=== PATIENT | male | born 1965 | race Caucasian/White ===

== ENCOUNTER 2019-01-19 10:18 | Inpatient (IN) | payer OTHER ==
[2019-01-19 16:03] VITALS: BMI 27.3
--- NOTE | 2019-01-19 17:23 | HP ---
COWS - Scale Resting Pulse: 1= [place] 81-100 Sweatin=Flushed/Facial Moisture Restless Observation: 0= Sits Still Pupil Size: 2= Moderately Dilated Bone or Joint Aches: 2= Severe Diffuse Aches Runny Nose/ Eye Tearin= Runny Nose/Eyes GI Upset > 30mins: 1= Stomach Cramp Tremor Observation: 0= None Yawning Observation: 0= None Anxiety or Irritability: 2=Irritable/Anxious Goose Flesh Skin: 0=Smooth Skin COWS Score: 12 CIWA Score Nausea/Vomitin Muscle Tremors: None Anxiety: 3 Agitation: 0-Normal Activity Paroxysmal Sweats: 3 Orientation: 1-Uncertain about Date Tacttile Disturbances: 3-Moderate Itch/Numb/Burn Auditory Disturbances: 0-None Visual Disturbances: 0-None Headache: 0-None Present CIWA-Ar Total Score: 12 - Admission Criteria OASAS Guidelines: Admission for Medically Managed Detox: Requires at least one of the followin. CIWA greater than 12 2. Seizures within the past 24 hours 3. Delirium tremens within the past 24 hours 4. Hallucinations within the past 24 hours 5. Acute intervention needed for co occurring medical disorder 6. Acute intervention needed for co occurring psychiatric disorder 7. Severe withdrawal that cannot be handled at a lower level of care (continued vomiting, continued diarrhea, abnormal vital signs) requiring intravenous medication and/or fluids 8. Admission ROS [facility] Chief Complaint: ETOH and Heroin withdrawal symptoms Allergies/Adverse Reactions: Allergies Allergy/AdvReac Type Severity Reaction Status Date / Time No Known Allergies Allergy Verified 01/19/19 15:45 History of Present Illness: Patient is new to facility and presents for ETOH and Heroin detox. Patient started sniffing heroin at age 34, denies IVDA and sniffs 6 bags daily. Last use this morning. Patient also started drinking ETOH at age 23 and drinks 2 pints of vodka daily. Last drink this morning. Patient denies hx of seizures, blackouts and overdose. PMH includes HTN, HLD and tobacco use. Patient denies hx of mental illness, SI and HI. Patient was treated with suboxone which was confirmed in [facility]. Last prescription 12/19/18. Patient states medication did not work and he stopped taking medicine. UDS + fentanyl, MOP, MTD, BZO. Others' Prescriptions Patient Name: Brennon Lauren Date: 1965 Address: [address] [place] [address] [address], [place] [address] Sex: Male Rx Written Rx Dispensed Drug Quantity Days Supply Prescriber Name 12/18/2018 12/19/2018 buprenorphine-naloxone 8-2 mg sl film 60 30 Justin Casillas 06/24/2018 06/24/2018 suboxone 8 mg-2 mg sl film 14 7 Garret Dhaliwal F, MD Patient Name: Brennon Lauren Date: 1965 Address: [address] [place], [place] [address], [place] [address] Sex: Male Rx Written Rx Dispensed Drug Quantity Days Supply Prescriber Name 07/05/2018 07/05/2018 suboxone 8 mg-2 mg sl film 5 2 Bolus, Tobin H * - Drugs marked with an asterisk are compound drugs. If the compound drug is made up of more than one controlled substance, then each controlled substance will be a separate row in the table. Exam Limitations: No Limitations - Ebola screening Have you traveled outside of the country in the last 21 days: No (N) Have you had contact with anyone from an Ebola affected area: No Do you have a fever: No - Review of Systems Constitutional: Chills, Changes in sleep EENT: reports: Tearing, Nose Congestion Respiratory: reports: No Symptoms reported Cardiac: reports: No Symptoms Reported GI: reports: Diarrhea, Nausea, Poor Fluid Intake : reports: No Symptoms Reported Musculoskeletal: reports: Back Pain, Joint Pain, Muscle Pain Integumentary: reports: Erythema, Flushing Neuro: reports: Numbness, Tingling Endocrine: reports: Flushing Hematology: reports: No Symptoms Reported Psychiatric: reports: Orientated x3, Anxious Patient History - Patient Medical History Hx Anemia: No Hx Asthma: No Hx Chronic Obstructive Pulmonary Disease (COPD): No Hx Cancer: No Hx Cardiac Disorders: No Hx Congestive Heart Failure: No Hx Hypertension: Yes Hx Hypercholesterolemia: Yes Hx Pacemaker: No HX Cerebrovascular Accident: No Hx Seizures: No Hx Dementia: No Hx Diabetes: No Hx Gastrointestinal Disorders: No Hx Liver Disease: No Hx Genitourinary Disorders: No Hx Sexually Transmitted Disorders: No Hx Renal Disease (ESRD): No Hx Thyroid Disease: No Hx Human Immunodeficiency Virus (HIV): No Hx Hepatitis C: No Hx Depression: No Hx Suicide Attempt: No Hx Bipolar Disorder: No Hx Schizophrenia: No - Patient Surgical History Past Surgical History: No Anesthesia Reaction: No - PPD History Previous Implant?: No Documented Results: Negative w/o proof PPD to be Administered?: Yes - Smoking Cessation Smoking history: Current every day smoker Have you smoked in the past 12 months: Yes Hx Chewing Tobacco Use: No Initiated information on smoking cessation: Yes 'Breaking Loose' booklet given: 01/19/19 - Substance & Tx. History Hx Alcohol Use: Yes Hx Substance Use: Yes Substance Use Type: Alcohol, Heroin Hx Substance Use Treatment: Yes - Substances abused Heroin Substance route: Inhalation Frequency: Daily Amount used: 6 bags a day Age of first use: 37 Date of last use: 01/19/19 Alcohol Substance route: Oral Frequency: Daily Amount used: 2 pints vodka Age of first use: 24 Date of last use: 01/19/19 Family Disease History - Family Disease History Family Disease History: Heart Disease: Father, Mother Admission Physical Exam [facility] - Vital Signs Vital Signs: Vital Signs - 24 hr 01/19/19 15:56 Temperature 97.3 F L Pulse Rate 90 Respiratory 16 Rate Blood Pressure 126/74 - Physical General Appearance: Yes: Nourished, Appropriately Dressed, Anxious HEENTM: Yes: EOMI, Hearing grossly Normal, Normocephalic, Normal Voice, YEIMY, Pharynx Normal, Other (mildly dilated pupils) Respiratory: Yes: Chest Non-Tender, Lungs Clear, Normal Breath Sounds, No Respiratory Distress, No Accessory Muscle Use Neck: Yes: No masses,lesions,Nodules, Supple, Trachea in good position Breast: Yes: Breast Exam Deferred Cardiology: Yes: Regular Rhythm, Regular Rate, S1, S2 Abdominal: Yes: Normal Bowel Sounds, Non Tender, Soft Genitourinary: Yes: Within Normal Limits Back: Yes: Muscle Spasm Musculoskeletal: Yes: Gait Steady, Back pain, Muscle Pain Extremities: Yes: Normal Inspection, Normal Range of Motion, Non-Tender Neurological: Yes: 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 II-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 NML intact, Fully Oriented, Alert, Motor Strength 5/5, Normal Response, Other (anxious) Integumentary: Yes: Warm, Erythema Lymphatic: Yes: Within Normal Limits Cleared for Admission [facility] - Detox or Rehab [facility] Level of Care: Medically Managed Detox Regimen/Protocol: Methadone/Librium Breathalyzer - Breathalyzer Breathalyzer: 0.072 Urine Drug Screen - Test Device Lot number: [id number] Expiration date: 10/05/20 - Control Is test valid?: Yes - Results Drug screen NEGATIVE: No Urine drug screen results: FEN-Fentanyl, MOP-Opiates, MTD-Methadone, BZO- Benzodiazepines Inpatient Rehab Admission - Rehab Decision to Admit Inpatient rehab admission?: No
[2019-01-19] MEDS ORDERED: guaiFENesin 200 MG/10 ML 10 ML UNIT-DOSE CUPS PO PRN (17:30)
[2019-01-19] MEDS ORDERED: hydrOXYzine PAMOATE 25 MG CAPSULE (FP) PO PRN (17:30)
[2019-01-19] MEDS ORDERED: ACETAMINOPHEN 325 MG TABLET (FP) PO PRN (17:30)
[2019-01-19] MEDS ORDERED: MAGNESIUM HYDROX 2400MG/30ML ORAL SUSPENSION 30 ML CUP PO PRN (17:30)
[2019-01-19] MEDS ORDERED: P-EPHED 60MG/TRIPROLIDI 2.5MG TABLET PO PRN (17:30)
[2019-01-19] MEDS ORDERED: MAGNESIUM CITRATE 300 ML BOTTLE PO PRN (17:30)
[2019-01-19] MEDS ORDERED: MAG HYDROX/AL HYDROX/SIMETH 30 ML UNIT-DOSE CUP PO PRN (17:30)
[2019-01-19] MEDS ORDERED: NICOTINE POLACRILEX 2 MG GUM BUC PRN (17:30)
[2019-01-19] MEDS ORDERED: BISMUTH SUBSALICYLATE 524 MG/30 ML UD PO PRN (17:30)
[2019-01-19] MEDS ORDERED: MENTHOL/PHENOL 1 EACH UD MM PRN (17:30)
[2019-01-19] MEDS ORDERED: chlordiazePOXIDE HCL 25 MG CAPSULE PO PRN (17:33)
[2019-01-19] MEDS ORDERED: cloNIDine HCL 0.1 MG TABLET PO PRN (17:33)
[2019-01-19] MEDS ORDERED: METHADONE HCL 10 MG TABLET (FOR DETOX USE ONLY) PO ONE ×2 (19:00→23:00)
[2019-01-19] MEDS: THIAMINE HCL 100 MG TABLET (FP) PO SCH (22:49)
[2019-01-19] MEDS: chlordiazePOXIDE HCL 25 MG CAPSULE PO SCH (22:49)
[2019-01-19] MEDS: ATORVASTATIN CA 10 MG TABLET (FP) PO SCH (22:49)
[2019-01-20] MEDS: chlordiazePOXIDE HCL 25 MG CAPSULE PO SCH ×4 (05:14→22:34)
[2019-01-20] MEDS ORDERED: METHADONE HCL 10 MG TABLET (FOR DETOX USE ONLY) PO ONE (10:00)
[2019-01-20] MEDS: ASPIRIN 81 MG CHEWABLE TABLETS PO SCH (10:27)
[2019-01-20] MEDS: PRENATAL VITAMINS W/ FOLIC ACID TABLET (FP) PO SCH (10:27)
[2019-01-20] MEDS: LOSARTAN POTASSIUM 25 MG TABLET PO SCH (10:27)
[2019-01-20] MEDS: NICOTINE 7 MG/24 HOURS TOPICAL PATCH TD SCH (10:28)
[2019-01-20 10:42] LABS: ALBUMIN 3.2 g/dl (3.4-5.0); BILIRUBIN,TOTAL 0.4 mg/dL (0.2-1); BLOOD UREA NITROGEN 17.4 mg/dL (7-18); CALCIUM 8.1 mg/dL (8.5-10.1); CREATININE 0.9 mg/dL (0.55-1.3); POTASSIUM 4.9 mmol/L (3.5-5.1); TOT PROT 6.2 g/dl (6.4-8.2)
[2019-01-20 11:16] LABS: URINE APPEARANCE CLEAR; URINE BILIRUBIN NEGATIVE (NEGATIVE); URINE COLOR YELLOW; URINE GLUCOSE (UA) NEGATIVE (NEGATIVE); URINE KETONE NEGATIVE (NEGATIVE); URINE LEUK ESTERASE NEGATIVE (NEGATIVE); URINE NITRITE NEGATIVE (NEGATIVE); URINE PROTEIN NEGATIVE (NEGATIVE); URINE UROBILINOGEN 0.2 mg/dL (0.2-1.0)
[2019-01-20 11:18] LABS: HEMATOCRIT 39.3 % (35.4-49); HEMOGLOBIN 13.5 GM/dL (11.7-16.9); MCH 31.5 pg (25.7-33.7); MCHC 34.4 g/dl (32.0-35.9); MEAN CELL VOLUME 91.4 fl (80-96); MEAN PLT VOLUME 7.9 fl (7.5-11.1); RDW 13.9 % (11.9-15.9); WHITE BLOOD COUNT 4.9 K/mm3 (4.0-10.0)
[2019-01-20 11:37] LABS: PLATELET COUNT 305 K/MM3 (134-434)
--- NOTE | 2019-01-20 15:36 | PN ---
[facility] CIWA - CIWA Score Nausea/Vomitin-Mild Nausea/No Vomiting Muscle Tremors: 3 Anxiety: 2 Agitation: 2 Paroxysmal Sweats: 3 Orientation: 0-Oriented Tacttile Disturbances: 0-None Auditory Disturbances: 0-None Visual Disturbances: 0-None Headache: 0-None Present CIWA-Ar Total Score: 11 S COWS - Scale Resting Pulse: 0= [place] 80 or Below Sweatin=Flushed/Facial Moisture Restless Observation: 1= Difficult to Sit Still Pupil Size: 0= Normal to Room Light Bone or Joint Aches: 1= Mild Discomfort Runny Nose/ Eye Tearin= Nasal Congestion GI Upset > 30mins: 1= Stomach Cramp Tremor Observation of Outstretched Hands: 2= Slight Tremor Visible Yawning Observation: 0= None Anxiety or Irritability: 1=Feels Anxious/Irritable Goose Flesh Skin: 0=Smooth Skin COWS Score: 9 S Progress Note (SOAP) Subjective: R leg pain sweats Objective: 01/20/19 15:33 A & Ox 3 Seen ambulating steadily on unit No acute distress Vital Signs Temperature 98.4 F 01/20/19 15:05 Pulse Rate 75 01/20/19 15:05 Respiratory Rate 18 01/20/19 15:05 Blood Pressure 123/72 01/20/19 15:05 O2 Sat by Pulse Oximetry (%) Laboratory Last Values WBC 4.9 K/mm3 (4.0-10.0) 01/20/19 07:40 RBC 4.30 M/mm3 (4.00-5.60) 01/20/19 07:40 Hgb 13.5 GM/dL (11.7-16.9) 01/20/19 07:40 Hct 39.3 % (35.4-49) 01/20/19 07:40 MCV 91.4 fl (80-96) 01/20/19 07:40 MCH 31.5 pg (25.7-33.7) 01/20/19 07:40 MCHC 34.4 g/dl (32.0-35.9) 01/20/19 07:40 RDW 13.9 % (11.9-15.9) 01/20/19 07:40 Plt Count 305 K/MM3 (134-434) 01/20/19 07:40 MPV 7.9 fl (7.5-11.1) 01/20/19 07:40 Sodium 139 mmol/L (136-145) 01/20/19 07:40 Potassium 4.9 mmol/L (3.5-5.1) 01/20/19 07:40 Chloride 108 mmol/L (98-107) H 01/20/19 07:40 Carbon Dioxide 29 mmol/L (21-32) 01/20/19 07:40 Anion Gap 2 MMOL/L (8-16) L 01/20/19 07:40 BUN 17.4 mg/dL (7-18) 01/20/19 07:40 Creatinine 0.9 mg/dL (0.55-1.3) 01/20/19 07:40 Est GFR (CKD-EPI)AfAm 114.21 01/20/19 07:40 Est GFR (CKD-EPI)NonAf 98.54 01/20/19 07:40 Random Glucose 85 mg/dL (74-106) 01/20/19 07:40 Calcium 8.1 mg/dL (8.5-10.1) L 01/20/19 07:40 Total Bilirubin 0.4 mg/dL (0.2-1) 01/20/19 07:40 AST 20 U/L (15-37) 01/20/19 07:40 ALT 24 U/L (13-61) 01/20/19 07:40 Alkaline Phosphatase 94 U/L (45-117) 01/20/19 07:40 Total Protein 6.2 g/dl (6.4-8.2) L 01/20/19 07:40 Albumin 3.2 g/dl (3.4-5.0) L 01/20/19 07:40 Urine Color Yellow 01/20/19 09:00 Urine Appearance Clear 01/20/19 09:00 Urine pH 5.0 (5.0-8.0) 01/20/19 09:00 Ur Specific [place] 1.012 (1.010-1.035) 01/20/19 09:00 Urine Protein Negative (NEGATIVE) 01/20/19 09:00 Urine Glucose (UA) Negative (NEGATIVE) 01/20/19 09:00 Urine Ketones Negative (NEGATIVE) 01/20/19 09:00 Urine Blood Negative (NEGATIVE) 01/20/19 09:00 Urine Nitrite Negative (NEGATIVE) 01/20/19 09:00 Urine Bilirubin Negative (NEGATIVE) 01/20/19 09:00 Urine Urobilinogen 0.2 mg/dL (0.2-1.0) 01/20/19 09:00 Ur Leukocyte Esterase Negative (NEGATIVE) 01/20/19 09:00 RPR Titer Nonreactive (NONREACTIVE) 01/20/19 07:40 Assessment: 01/20/19 15:36 withdrawal sx Plan: continue detox
[2019-01-20] MEDS: IBUPROFEN 400 MG TABLET (FP) PO PRN ×2 (17:00→22:37)
[2019-01-20] MEDS: ATORVASTATIN CA 10 MG TABLET (FP) PO SCH (22:34)
[2019-01-20] MEDS: THIAMINE HCL 100 MG TABLET (FP) PO SCH (23:36)
[2019-01-21] MEDS: chlordiazePOXIDE HCL 25 MG CAPSULE PO SCH ×3 (05:58→18:00)
[2019-01-21] MEDS ORDERED: METHADONE HCL 10 MG TABLET (FOR DETOX USE ONLY) PO ONE (10:00)
[2019-01-21] MEDS: PRENATAL VITAMINS W/ FOLIC ACID TABLET (FP) PO SCH (10:25)
[2019-01-21] MEDS: ASPIRIN 81 MG CHEWABLE TABLETS PO SCH (10:25)
[2019-01-21] MEDS: LOSARTAN POTASSIUM 25 MG TABLET PO SCH (10:27)
[2019-01-21] MEDS: NICOTINE 7 MG/24 HOURS TOPICAL PATCH TD SCH (10:28)
--- NOTE | 2019-01-21 14:51 | PN ---
[facility] CIWA - CIWA Score Nausea/Vomitin-No Nausea/No Vomiting Muscle Tremors: 3 Anxiety: 2 Agitation: 3 Paroxysmal Sweats: 2 Orientation: 0-Oriented Tacttile Disturbances: 0-None Auditory Disturbances: 0-None Visual Disturbances: 0-None Headache: 0-None Present CIWA-Ar Total Score: 10 BHS COWS - Scale Resting Pulse: 0= [place] 80 or Below Sweatin=Flushed/Facial Moisture Restless Observation: 1= Difficult to Sit Still Pupil Size: 0= Normal to Room Light Bone or Joint Aches: 1= Mild Discomfort Runny Nose/ Eye Tearin= Nasal Congestion GI Upset > 30mins: 0= None Tremor Observation of Outstretched Hands: 1= Tremor [place], Not Seen Yawning Observation: 1= 1-2x During Session Anxiety or Irritability: 2=Irritable/Anxious Goose Flesh Skin: 0=Smooth Skin COWS Score: 9 BHS Progress Note (SOAP) Subjective: sweats shakes interrupted sleep body aches Objective: 01/21/19 14:50 Vital Signs Temperature 98.2 F 01/21/19 14:17 Pulse Rate 60 01/21/19 14:17 Respiratory Rate 20 01/21/19 14:17 Blood Pressure 131/72 01/21/19 14:17 O2 Sat by Pulse Oximetry (%) Laboratory Tests 01/20/19 01/20/19 01/20/19 07:40 07:40 07:40 WBC 4.9 RBC 4.30 Hgb 13.5 Hct 39.3 MCV 91.4 MCH 31.5 MCHC 34.4 RDW 13.9 Plt Count 305 MPV 7.9 Sodium 139 Potassium 4.9 Chloride 108 H Carbon Dioxide 29 Anion Gap 2 L BUN 17.4 Creatinine 0.9 Est GFR (CKD-EPI)AfAm 114.21 Est GFR (CKD-EPI)NonAf 98.54 Random Glucose 85 Calcium 8.1 L Total Bilirubin 0.4 AST 20 ALT 24 Alkaline Phosphatase 94 Total Protein 6.2 L Albumin 3.2 L Urine Color Urine Appearance Urine pH Ur Specific [place] Urine Protein Urine Glucose (UA) Urine Ketones Urine Blood Urine Nitrite Urine Bilirubin Urine Urobilinogen Ur Leukocyte Esterase RPR Titer Nonreactive 01/20/19 09:00 WBC RBC Hgb Hct MCV MCH MCHC RDW Plt Count MPV Sodium Potassium Chloride Carbon Dioxide Anion Gap BUN Creatinine Est GFR (CKD-EPI)AfAm Est GFR (CKD-EPI)NonAf Random Glucose Calcium Total Bilirubin AST ALT Alkaline Phosphatase Total Protein Albumin Urine Color Yellow Urine Appearance Clear Urine pH 5.0 Ur Specific [place] 1.012 Urine Protein Negative Urine Glucose (UA) Negative Urine Ketones Negative Urine Blood Negative Urine Nitrite Negative Urine Bilirubin Negative Urine Urobilinogen 0.2 Ur Leukocyte Esterase Negative RPR Titer aaox3 ambulating no acute distress Assessment: 01/21/19 14:50 withdrawal sx Plan: continue detox increase fluids
--- NOTE | 2019-01-21 16:54 | EKG ---
Test Reason : Blood Pressure : / mmHG Vent. Rate : 071 BPM Atrial Rate : 071 BPM P-R Int : 150 ms QRS Dur : 104 ms QT Int : 398 ms P-R-T Axes : -10 047 -37 degrees QTc Int : 432 ms NORMAL SINUS RHYTHM T WAVE ABNORMALITY, CONSIDER LATERAL ISCHEMIA ABNORMAL ECG NO PREVIOUS ECGS AVAILABLE Confirmed by MD MADELEINE, TANNA ([id number]) on 01/21/2019 4:54:29 PM Referred By: Confirmed By:TANNA SALVADOR MD
[2019-01-21] MEDS: ATORVASTATIN CA 10 MG TABLET (FP) PO SCH (22:22)
[2019-01-21] MEDS: MELATONIN 5 MG TABLETS PO PRN (22:22)
[2019-01-21] MEDS: THIAMINE HCL 100 MG TABLET (FP) PO SCH (22:22)
[2019-01-21] MEDS: chlordiazePOXIDE HCL 10 MG CAPSULE PO SCH (22:22)
[2019-01-21] MEDS ORDERED: chlordiazePOXIDE HCL 10 MG CAPSULE PO PRN (23:00)
[2019-01-22] MEDS: chlordiazePOXIDE HCL 10 MG CAPSULE PO SCH ×3 (07:24→17:42)
[2019-01-22] MEDS ORDERED: METHADONE HCL 10 MG TABLET (FOR DETOX USE ONLY) PO ONE (10:00)
[2019-01-22] MEDS: NICOTINE 7 MG/24 HOURS TOPICAL PATCH TD SCH (10:43)
[2019-01-22] MEDS: ASPIRIN 81 MG CHEWABLE TABLETS PO SCH (10:44)
[2019-01-22] MEDS: PRENATAL VITAMINS W/ FOLIC ACID TABLET (FP) PO SCH (10:47)
[2019-01-22] MEDS: LOSARTAN POTASSIUM 25 MG TABLET PO SCH (10:48)
--- NOTE | 2019-01-22 13:24 | PN ---
S CIWA - CIWA Score Nausea/Vomitin-No Nausea/No Vomiting Muscle Tremors: 2 Anxiety: 1-Mildly Anxious Agitation: 1-Slight > Activity Paroxysmal Sweats: 1-Minimal Palms Moist Orientation: 0-Oriented Tacttile Disturbances: 0-None Auditory Disturbances: 0-None Visual Disturbances: 0-None Headache: 0-None Present CIWA-Ar Total Score: 5 BHS COWS - Scale Resting Pulse: 0= [place] 80 or Below Sweatin= Chills/Flushing Restless Observation: 0= Sits Still Pupil Size: 0= Normal to Room Light Bone or Joint Aches: 1= Mild Discomfort Runny Nose/ Eye Tearin= None GI Upset > 30mins: 0= None Tremor Observation of Outstretched Hands: 2= Slight Tremor Visible Yawning Observation: 1= 1-2x During Session Anxiety or Irritability: 1=Feels Anxious/Irritable Goose Flesh Skin: 0=Smooth Skin COWS Score: 6 S Progress Note (SOAP) Subjective: sweats interrupted sleep little anxiety Objective: 01/22/19 13:23 Vital Signs Temperature 98.1 F 01/22/19 13:12 Pulse Rate 60 01/22/19 13:12 Respiratory Rate 18 01/22/19 13:12 Blood Pressure 138/78 01/22/19 13:12 O2 Sat by Pulse Oximetry (%) Laboratory Tests 01/20/19 01/20/19 01/20/19 07:40 07:40 07:40 WBC 4.9 RBC 4.30 Hgb 13.5 Hct 39.3 MCV 91.4 MCH 31.5 MCHC 34.4 RDW 13.9 Plt Count 305 MPV 7.9 Sodium 139 Potassium 4.9 Chloride 108 H Carbon Dioxide 29 Anion Gap 2 L BUN 17.4 Creatinine 0.9 Est GFR (CKD-EPI)AfAm 114.21 Est GFR (CKD-EPI)NonAf 98.54 Random Glucose 85 Calcium 8.1 L Total Bilirubin 0.4 AST 20 ALT 24 Alkaline Phosphatase 94 Total Protein 6.2 L Albumin 3.2 L Urine Color Urine Appearance Urine pH Ur Specific [place] Urine Protein Urine Glucose (UA) Urine Ketones Urine Blood Urine Nitrite Urine Bilirubin Urine Urobilinogen Ur Leukocyte Esterase RPR Titer Nonreactive 01/20/19 09:00 WBC RBC Hgb Hct MCV MCH MCHC RDW Plt Count MPV Sodium Potassium Chloride Carbon Dioxide Anion Gap BUN Creatinine Est GFR (CKD-EPI)AfAm Est GFR (CKD-EPI)NonAf Random Glucose Calcium Total Bilirubin AST ALT Alkaline Phosphatase Total Protein Albumin Urine Color Yellow Urine Appearance Clear Urine pH 5.0 Ur Specific [place] 1.012 Urine Protein Negative Urine Glucose (UA) Negative Urine Ketones Negative Urine Blood Negative Urine Nitrite Negative Urine Bilirubin Negative Urine Urobilinogen 0.2 Ur Leukocyte Esterase Negative RPR Titer labs noted aaox3 ambulating no acute distress Assessment: 01/22/19 13:23 mild withdrawal sx Plan: continue detox increase fluids
[2019-01-22] MEDS: IBUPROFEN 400 MG TABLET (FP) PO PRN (17:45)
[2019-01-22] MEDS: MELATONIN 5 MG TABLETS PO PRN (22:26)
[2019-01-22] MEDS: THIAMINE HCL 100 MG TABLET (FP) PO SCH (22:26)
[2019-01-22] MEDS: ATORVASTATIN CA 10 MG TABLET (FP) PO SCH (22:26)
[2019-01-22] MEDS ORDERED: chlordiazePOXIDE HCL 10 MG CAPSULE PO SCH (23:00)
[2019-01-23] MEDS ORDERED: METHADONE HCL 5 MG TABLET (FOR DETOX USE ONLY) PO ONE (06:00)
[2019-01-23 08:10] VITALS: BP 139/96; PULSE 55; TEMP 96.8
== END 2019-01-23 08:35 | disposition home or self-care (01) | DRG 773 ==
LOC: YASAS 10:18 → Y6N 18:22
PROVIDERS: ADMIT Surgery; ATTEND Surgery
PROC: HZ2ZZZZ Detoxification Services for Substance Abuse Treatment (ICD-10-PCS; principal; 2019-01-19)
DX: F11.23 Opioid dependence with withdrawal (principal); F10.230 Alcohol dependence with withdrawal, uncomplicated; F17.210 Nicotine dependence, cigarettes, uncomplicated; I10 Essential (primary) hypertension; E78.5 Hyperlipidemia, unspecified
CPT/HCPCS: 36415; 80053; 81003; 85027; 86593; 93005; 93010

== ENCOUNTER 2019-05-06 10:47 | Inpatient (IN) | payer OTHER ==
[2019-05-06 12:00] VITALS: BMI 26.7
--- NOTE | 2019-05-06 14:23 | HP ---
COWS - Scale Resting Pulse: 0= [place] 80 or Below Sweatin= Chills/Flushing Restless Observation: 1= Difficult to Sit Still Pupil Size: 1= Pupils >than Normal Bone or Joint Aches: 2= Severe Diffuse Aches Runny Nose/ Eye Tearin= Runny Nose/Eyes GI Upset > 30mins: 2= Nausea/Diarrhea Tremor Observation: 2= Slight Tremor Visible Yawning Observation: 2= >3x During Session Anxiety or Irritability: 2=Irritable/Anxious Goose Flesh Skin: 0=Smooth Skin COWS Score: 15 CIWA Score Nausea/Vomitin Muscle Tremors: 3 Anxiety: 2 Agitation: 2 Paroxysmal Sweats: 1-Minimal Palms Moist Orientation: 0-Oriented Tacttile Disturbances: 1-Very Mild Itch/Numbness Auditory Disturbances: 0-None Visual Disturbances: 0-None Headache: 2-Mild CIWA-Ar Total Score: 13 - Admission Criteria OASAS Guidelines: Admission for Medically Managed Detox: Requires at least one of the followin. CIWA greater than 12 2. Seizures within the past 24 hours 3. Delirium tremens within the past 24 hours 4. Hallucinations within the past 24 hours 5. Acute intervention needed for co occurring medical disorder 6. Acute intervention needed for co occurring psychiatric disorder 7. Severe withdrawal that cannot be handled at a lower level of care (continued vomiting, continued diarrhea, abnormal vital signs) requiring intravenous medication and/or fluids 8. Admission ROS S - HPI Chief Complaint: i need help to stop using heroin and alcohol Allergies/Adverse Reactions: Allergies Allergy/AdvReac Type Severity Reaction Status Date / Time No Known Allergies Allergy Verified 05/06/19 11:52 History of Present Illness: this 54 years old male with heroin and alcohol dependence seeking detox, withdrawal symptom,last detox C 01/09/19 to 01/13/19 but keep relapsing denied seizure no syncope nicotine dependence 3 cigarette/day history of hypertension,hypercholesterolemia no significant period of sobriety unemployed may go to rehab after detox Exam Limitations: No Limitations - Ebola screening Have you traveled outside of the country in the last 21 days: No (N) Have you had contact with anyone from an Ebola affected area: No Do you have a fever: No - Review of Systems Constitutional: Chills, Malaise, Night Sweats, Changes in sleep, Weakness, Unintentional Wgt. Loss EENT: reports: No Symptoms Reported Respiratory: reports: No Symptoms reported Cardiac: reports: No Symptoms Reported GI: reports: Diarrhea, Nausea, Abdominal cramping : reports: No Symptoms Reported Musculoskeletal: reports: Back Pain, Joint Pain, Muscle Pain Integumentary: reports: Dryness Neuro: reports: Headache, Tremors Endocrine: reports: No Symptoms Reported Hematology: reports: No Symptoms Reported Psychiatric: reports: No Sypmtoms Reported, Judgement Intact, Mood/Affect Appropiate, Orientated x3 Other Systems: Reviewed and Negative Patient History - Patient Medical History Hx Anemia: No Hx Asthma: No Hx Chronic Obstructive Pulmonary Disease (COPD): No Hx Cancer: No Hx Cardiac Disorders: No Hx Congestive Heart Failure: No Hx Hypertension: Yes (on med) Hx Hypercholesterolemia: Yes (on med) Hx Pacemaker: No HX Cerebrovascular Accident: No Hx Seizures: No Hx Dementia: No Hx Diabetes: No Hx Gastrointestinal Disorders: No Hx Liver Disease: No Hx Genitourinary Disorders: No Hx Sexually Transmitted Disorders: No Hx Renal Disease (ESRD): No Hx Thyroid Disease: No Hx Human Immunodeficiency Virus (HIV): No Hx Hepatitis C: No Hx Depression: No Hx Suicide Attempt: No Hx Bipolar Disorder: No Hx Schizophrenia: No Other Medical History: no suicidal,no homicidal - Patient Surgical History Past Surgical History: No Hx Neurologic Surgery: No Hx Cataract Extraction: No Hx Cardiac Surgery: No Hx Lung Surgery: No Hx Breast Surgery: No Hx Breast Biopsy: No Hx Abdominal Surgery: No Hx Appendectomy: No Hx Cholecystectomy: No Hx Genitourinary Surgery: No Hx Section: No Hx Orthopedic Surgery: No Anesthesia Reaction: No - PPD History Previous Implant?: Yes Documented Results: Negative w/proof Implanted On Prior R Admission?: Yes Date: 01/21/19 Results: 0 mm PPD to be Administered?: Yes - Smoking Cessation Smoking history: Current every day smoker Have you smoked in the past 12 months: Yes Aproximately how many cigarettes per day: 4 Hx Chewing Tobacco Use: No Initiated information on smoking cessation: Yes 'Breaking Loose' booklet given: 05/06/19 - Substance & Tx. History Hx Alcohol Use: Yes Hx Substance Use: Yes Substance Use Type: Alcohol, Heroin Hx Substance Use Treatment: Yes ([facility] 01/09/19 to 01/13/19) - Substances abused Heroin Substance route: Inhalation Frequency: Daily Amount used: 6 bags a day Age of first use: 37 Date of last use: 05/06/19 Alcohol Substance route: Oral Frequency: Daily Amount used: 2 pints vodka Age of first use: 24 Date of last use: 05/06/19 Admission Physical Exam [facility] - Vital Signs Vital Signs: Vital Signs - 24 hr 05/06/19 11:51 Temperature 97.0 F L Pulse Rate 74 Respiratory 18 Rate Blood Pressure 136/87 - Physical General Appearance: Yes: Moderate Distress, Tremorous, Irritable, Sweating, Anxious HEENTM: Yes: Normal ENT Inspection, YEIMY, Pharynx Normal Respiratory: Yes: Lungs Clear, Normal Breath Sounds, No Respiratory Distress Neck: Yes: Within Normal Limits, Supple, Trachea in good position Breast: Yes: Within Normal Limits Cardiology: Yes: Regular Rhythm, Regular Rate, S1, S2, Edema Abdominal: Yes: Within Normal Limits, Normal Bowel Sounds, Non Tender, Flat, Soft Genitourinary: Yes: Within Normal Limits Back: Yes: Normal Inspection, Muscle Spasm Musculoskeletal: Yes: full range of Motion, Back pain, Muscle Pain Extremities: Yes: Within Normal Limits, Normal Range of Motion, Tremors Neurological: Yes: 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 II-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 NML intact, Fully Oriented, Alert, Motor Strength 5/5 Integumentary: Yes: Dry Lymphatic: Yes: Within Normal Limits - Diagnostic (1) Opioid dependence with withdrawal Current Visit: No Status: Acute (2) Alcohol dependence with uncomplicated withdrawal Current Visit: No Status: Acute (3) HLD (hyperlipidemia) Current Visit: No Status: Chronic Qualifiers: Hyperlipidemia type: unspecified Qualified Code(s): E78.5 - Hyperlipidemia , unspecified (4) HTN (hypertension) Current Visit: No Status: Chronic Qualifiers: Hypertension type: essential hypertension Qualified Code(s): I10 - Essential (primary) hypertension (5) Nicotine dependence Current Visit: Yes Status: Acute Cleared for Admission [facility] - Detox or Rehab [facility] Level of Care: Medically Managed Detox Regimen/Protocol: Methadone/Librium Breathalyzer - Breathalyzer Breathalyzer: 0.070 Urine Drug Screen - Test Device Lot number: [id number] Expiration date: 01/05/21 - Control Is test valid?: Yes - Results Drug screen NEGATIVE: Yes Urine drug screen results: FEN-Fentanyl, MOP-Opiates Inpatient Rehab Admission - Rehab Decision to Admit Inpatient rehab admission?: No
[2019-05-06] MEDS ORDERED: METHADONE HCL 10 MG TABLET (FOR DETOX USE ONLY) PO ONE (14:28)
[2019-05-06] MEDS ORDERED: chlordiazePOXIDE HCL 25 MG CAPSULE PO PRN (14:28)
[2019-05-06] MEDS ORDERED: cloNIDine HCL 0.1 MG TABLET PO PRN (14:28)
[2019-05-06] MEDS: chlordiazePOXIDE HCL 25 MG CAPSULE PO SCH ×2 (16:58→22:28)
[2019-05-07] MEDS: chlordiazePOXIDE HCL 25 MG CAPSULE PO SCH ×4 (06:09→22:05)
[2019-05-07] MEDS ORDERED: METHADONE HCL 10 MG TABLET (FOR DETOX USE ONLY) ONE (08:57)
[2019-05-07] MEDS ORDERED: METHADONE HCL 5 MG TABLET (FOR DETOX USE ONLY) ONE (08:58)
[2019-05-07] MEDS ORDERED: METHADONE (DETOX) 20 MG, METHADONE (DETOX) 5 MG PO ONE (10:00)
[2019-05-07] MEDS: ASPIRIN 81 MG CHEWABLE TABLETS PO SCH (10:20)
[2019-05-07] MEDS: LOSARTAN POTASSIUM 25 MG TABLET PO SCH (10:21)
[2019-05-07] MEDS ORDERED: MAGNESIUM HYDROX 2400MG/30ML ORAL SUSPENSION 30 ML CUP PO PRN (10:30)
[2019-05-07] MEDS ORDERED: ACETAMINOPHEN 325 MG TABLET (FP) PO PRN ×2 (10:30)
[2019-05-07] MEDS ORDERED: IBUPROFEN 400 MG TABLET (FP) PO PRN (10:30)
[2019-05-07] MEDS ORDERED: BISMUTH SUBSALICYLATE 262 MG/15 ML BTL PO PRN (10:30)
[2019-05-07] MEDS ORDERED: ONDANSETRON *ODT* 4 MG TABLET SL PRN (10:30)
[2019-05-07] MEDS ORDERED: MAGNESIUM CITRATE 300 ML BOTTLE PO PRN (10:30)
[2019-05-07] MEDS ORDERED: MAG HYDROX/AL HYDROX/SIMETH 30 ML UNIT-DOSE CUP PO PRN (10:30)
[2019-05-07] MEDS ORDERED: MENTHOL/PHENOL 1 EACH UD MM PRN (10:30)
[2019-05-07] MEDS: PRENATAL VITAMINS W/ FOLIC ACID TABLET (FP) PO SCH (10:52)
--- NOTE | 2019-05-07 11:20 | PN ---
S CIWA - CIWA Score Nausea/Vomitin Muscle Tremors: 2 Anxiety: 2 Agitation: 2 Paroxysmal Sweats: No Perspiration Orientation: 0-Oriented Tacttile Disturbances: 1-Very Mild Itch/Numbness Auditory Disturbances: 0-None Visual Disturbances: 0-None Headache: 1-Very Mild CIWA-Ar Total Score: 10 BHS COWS - Scale Resting Pulse: 0= [place] 80 or Below Sweatin= No chills or Flushing Restless Observation: 1= Difficult to Sit Still Pupil Size: 1= Pupils >than Normal Bone or Joint Aches: 2= Severe Diffuse Aches Runny Nose/ Eye Tearin= Nasal Congestion GI Upset > 30mins: 1= Stomach Cramp Tremor Observation of Outstretched Hands: 2= Slight Tremor Visible Yawning Observation: 1= 1-2x During Session Anxiety or Irritability: 2=Irritable/Anxious Goose Flesh Skin: 0=Smooth Skin COWS Score: 11 S Progress Note (SOAP) Subjective: alert,irritable,anxious,interrupted sleep,tremor,pain Objective: 05/07/19 11:18 Vital Signs Temperature 97.3 F L 05/07/19 09:08 Pulse Rate 68 05/07/19 09:08 Respiratory Rate 18 05/07/19 09:08 Blood Pressure 123/79 05/07/19 09:08 O2 Sat by Pulse Oximetry (%) Assessment: 05/07/19 11:19 withdrawal symptom Plan: continue detox ,methadone and librium regimen
[2019-05-07] MEDS: PATIENT'S OWN MEDICATION (NON-FORMULARY) (Simvastatin [Simvastatin] 20 MG) PO SCH (22:05)
[2019-05-07] MEDS: MELATONIN 5 MG TABLETS PO PRN (22:06)
[2019-05-07] MEDS: METHOCARBAMOL 500 MG TABLET PO PRN (22:08)
[2019-05-07] MEDS: THIAMINE HCL 100 MG TABLET (FP) PO SCH (22:08)
[2019-05-08] MEDS: chlordiazePOXIDE HCL 25 MG CAPSULE PO SCH ×4 (07:17→22:21)
[2019-05-08] MEDS ORDERED: METHADONE HCL 10 MG TABLET (FOR DETOX USE ONLY) PO ONE (10:00)
[2019-05-08] MEDS: ASPIRIN 81 MG CHEWABLE TABLETS PO SCH (10:15)
[2019-05-08] MEDS: PRENATAL VITAMINS W/ FOLIC ACID TABLET (FP) PO SCH ×2 (10:15→10:16)
[2019-05-08] MEDS: LOSARTAN POTASSIUM 25 MG TABLET PO SCH (10:15)
[2019-05-08] MEDS: METHOCARBAMOL 500 MG TABLET PO PRN ×2 (10:19→22:21)
[2019-05-08 12:13] LABS: BASO % 0.7 % (0-2.0); EOS % 6.9 % (0-4.5); HEMATOCRIT 38.8 % (35.4-49); HEMOGLOBIN 13.1 GM/dL (11.7-16.9); LYMPH % 25.4 % (8-40); MCHC 33.8 g/dl (32.0-35.9); MEAN CELL VOLUME 91.8 fl (80-96); MEAN PLT VOLUME 7.9 fl (7.5-11.1); MONO % 11.8 % (3.8-10.2); NEUT % 55.2 % (42.8-82.8); PLATELET COUNT 255 K/MM3 (134-434); RBC 4.23 M/mm3 (4.00-5.60); RDW 13.3 % (11.9-15.9); WHITE BLOOD COUNT 5.2 K/mm3 (4.0-10.0)
--- NOTE | 2019-05-08 12:32 | PN ---
S CIWA - CIWA Score Nausea/Vomitin-Mild Nausea/No Vomiting Muscle Tremors: 2 Anxiety: 2 Agitation: 2 Paroxysmal Sweats: 1-Minimal Palms Moist Orientation: 0-Oriented Tacttile Disturbances: 1-Very Mild Itch/Numbness Auditory Disturbances: 0-None Visual Disturbances: 0-None Headache: 2-Mild CIWA-Ar Total Score: 11 BHS COWS - Scale Resting Pulse: 0= [place] 80 or Below Sweatin= No chills or Flushing Restless Observation: 1= Difficult to Sit Still Pupil Size: 1= Pupils >than Normal Bone or Joint Aches: 1= Mild Discomfort Runny Nose/ Eye Tearin= Nasal Congestion GI Upset > 30mins: 1= Stomach Cramp Tremor Observation of Outstretched Hands: 1= Tremor [place], Not Seen Yawning Observation: 1= 1-2x During Session Anxiety or Irritability: 2=Irritable/Anxious Goose Flesh Skin: 0=Smooth Skin COWS Score: 9 S Progress Note (SOAP) Subjective: alert,irritable,anxious,interrupted sleep,pain in the body and back Objective: 05/08/19 12:30 Vital Signs Temperature 97.7 F 05/08/19 09:41 Pulse Rate 67 05/08/19 09:41 Respiratory Rate 16 05/08/19 09:41 Blood Pressure 141/99 05/08/19 09:41 O2 Sat by Pulse Oximetry (%) Laboratory Last Values WBC 5.2 K/mm3 (4.0-10.0) 05/08/19 08:45 RBC 4.23 M/mm3 (4.00-5.60) 05/08/19 08:45 Hgb 13.1 GM/dL (11.7-16.9) 05/08/19 08:45 Hct 38.8 % (35.4-49) 05/08/19 08:45 MCV 91.8 fl (80-96) 05/08/19 08:45 MCH 31.0 pg (25.7-33.7) 05/08/19 08:45 MCHC 33.8 g/dl (32.0-35.9) 05/08/19 08:45 RDW 13.3 % (11.9-15.9) 05/08/19 08:45 Plt Count 255 K/MM3 (134-434) 05/08/19 08:45 MPV 7.9 fl (7.5-11.1) 05/08/19 08:45 Absolute Neuts (auto) 2.9 K/mm3 (1.5-8.0) 05/08/19 08:45 Neutrophils % 55.2 % (42.8-82.8) 05/08/19 08:45 Lymphocytes % 25.4 % (8-40) 05/08/19 08:45 Monocytes % 11.8 % (3.8-10.2) H 05/08/19 08:45 Eosinophils % 6.9 % (0-4.5) H 05/08/19 08:45 Basophils % 0.7 % (0-2.0) 05/08/19 08:45 Nucleated RBC % 0 % (0-0) 05/08/19 08:45 labs pending Assessment: 05/08/19 12:31 withdrawal symptom Plan: continue detox ,methadone and librium regimen
[2019-05-08 13:01] LABS: ALBUMIN 3.4 g/dl (3.4-5.0); BILIRUBIN,TOTAL 0.4 mg/dL (0.2-1); BLOOD UREA NITROGEN 11.2 mg/dL (7-18); CALCIUM 8.7 mg/dL (8.5-10.1); CREATININE 0.8 mg/dL (0.55-1.3); POTASSIUM 4.2 mmol/L (3.5-5.1); TOT PROT 6.4 g/dl (6.4-8.2)
[2019-05-08] MEDS: MELATONIN 5 MG TABLETS PO PRN (22:21)
[2019-05-08] MEDS: PATIENT'S OWN MEDICATION (NON-FORMULARY) (Simvastatin [Simvastatin] 20 MG) PO SCH ×2 (22:21→23:05)
[2019-05-08] MEDS: hydrOXYzine PAMOATE 25 MG CAPSULE (FP) PO PRN (22:23)
[2019-05-08] MEDS: THIAMINE HCL 100 MG TABLET (FP) PO SCH (23:03)
[2019-05-09] MEDS ORDERED: chlordiazePOXIDE HCL 10 MG CAPSULE PO PRN
[2019-05-09] MEDS: chlordiazePOXIDE HCL 10 MG CAPSULE PO SCH ×4 (06:44→22:04)
[2019-05-09] MEDS ORDERED: METHADONE HCL 10 MG TABLET (FOR DETOX USE ONLY) ONE (08:42)
[2019-05-09] MEDS ORDERED: METHADONE HCL 5 MG TABLET (FOR DETOX USE ONLY) ONE (08:43)
[2019-05-09] MEDS: ASPIRIN 81 MG CHEWABLE TABLETS PO SCH (09:50)
[2019-05-09] MEDS: PRENATAL VITAMINS W/ FOLIC ACID TABLET (FP) PO SCH ×3 (09:50→10:31)
[2019-05-09] MEDS: LOSARTAN POTASSIUM 25 MG TABLET PO SCH (09:50)
[2019-05-09] MEDS ORDERED: METHADONE (DETOX) 10 MG, METHADONE (DETOX) 5 MG PO ONE (10:00)
--- NOTE | 2019-05-09 11:46 | PN ---
[facility] CIWA - CIWA Score Nausea/Vomitin-No Nausea/No Vomiting Muscle Tremors: 1-None Visible, but [place] Anxiety: 2 Agitation: 2 Paroxysmal Sweats: No Perspiration Orientation: 0-Oriented Tacttile Disturbances: 1-Very Mild Itch/Numbness Auditory Disturbances: 0-None Visual Disturbances: 0-None Headache: 1-Very Mild CIWA-Ar Total Score: 7 BHS COWS - Scale Resting Pulse: 0= [place] 80 or Below Sweatin= No chills or Flushing Restless Observation: 1= Difficult to Sit Still Pupil Size: 1= Pupils >than Normal Bone or Joint Aches: 1= Mild Discomfort Runny Nose/ Eye Tearin= Nasal Congestion GI Upset > 30mins: 1= Stomach Cramp Tremor Observation of Outstretched Hands: 1= Tremor [place], Not Seen Yawning Observation: 1= 1-2x During Session Anxiety or Irritability: 1=Feels Anxious/Irritable Goose Flesh Skin: 0=Smooth Skin COWS Score: 8 [facility] Progress Note (SOAP) Subjective: alert,irritable,anxious,interrupted sleep,pain in the body Objective: 05/09/19 11:45 Vital Signs Temperature 98.6 F 05/09/19 09:18 Pulse Rate 69 05/09/19 09:18 Respiratory Rate 18 05/09/19 09:18 Blood Pressure 133/77 05/09/19 09:18 O2 Sat by Pulse Oximetry (%) 05/09/19 11:45 Laboratory Last Values WBC 5.2 K/mm3 (4.0-10.0) 05/08/19 08:45 RBC 4.23 M/mm3 (4.00-5.60) 05/08/19 08:45 Hgb 13.1 GM/dL (11.7-16.9) 05/08/19 08:45 Hct 38.8 % (35.4-49) 05/08/19 08:45 MCV 91.8 fl (80-96) 05/08/19 08:45 MCH 31.0 pg (25.7-33.7) 05/08/19 08:45 MCHC 33.8 g/dl (32.0-35.9) 05/08/19 08:45 RDW 13.3 % (11.9-15.9) 05/08/19 08:45 Plt Count 255 K/MM3 (134-434) 05/08/19 08:45 MPV 7.9 fl (7.5-11.1) 05/08/19 08:45 Absolute Neuts (auto) 2.9 K/mm3 (1.5-8.0) 05/08/19 08:45 Neutrophils % 55.2 % (42.8-82.8) 05/08/19 08:45 Lymphocytes % 25.4 % (8-40) 05/08/19 08:45 Monocytes % 11.8 % (3.8-10.2) H 05/08/19 08:45 Eosinophils % 6.9 % (0-4.5) H 05/08/19 08:45 Basophils % 0.7 % (0-2.0) 05/08/19 08:45 Nucleated RBC % 0 % (0-0) 05/08/19 08:45 Sodium 140 mmol/L (136-145) 05/08/19 08:45 Potassium 4.2 mmol/L (3.5-5.1) 05/08/19 08:45 Chloride 106 mmol/L (98-107) 05/08/19 08:45 Carbon Dioxide 27 mmol/L (21-32) 05/08/19 08:45 Anion Gap 7 MMOL/L (8-16) L 05/08/19 08:45 BUN 11.2 mg/dL (7-18) 05/08/19 08:45 Creatinine 0.8 mg/dL (0.55-1.3) 05/08/19 08:45 Est GFR (CKD-EPI)AfAm 119.04 05/08/19 08:45 Est GFR (CKD-EPI)NonAf 102.71 05/08/19 08:45 Random Glucose 87 mg/dL (74-106) 05/08/19 08:45 Calcium 8.7 mg/dL (8.5-10.1) 05/08/19 08:45 Total Bilirubin 0.4 mg/dL (0.2-1) 05/08/19 08:45 AST 14 U/L (15-37) L 05/08/19 08:45 ALT 19 U/L (13-61) 05/08/19 08:45 Alkaline Phosphatase 75 U/L (45-117) 05/08/19 08:45 Total Protein 6.4 g/dl (6.4-8.2) 05/08/19 08:45 Albumin 3.4 g/dl (3.4-5.0) 05/08/19 08:45 RPR Titer Nonreactive (NONREACTIVE) 05/08/19 08:45 HIV 1&2 Antibody Screen Negative 05/08/19 08:45 HIV P24 Antigen Negative 05/08/19 08:45 Assessment: 05/09/19 11:45 withdrawal symptom Plan: continue detox methadone and librium regimen
[2019-05-09] MEDS: METHOCARBAMOL 500 MG TABLET PO PRN ×2 (13:15→22:05)
[2019-05-09] MEDS: MELATONIN 5 MG TABLETS PO PRN (22:03)
[2019-05-09] MEDS: THIAMINE HCL 100 MG TABLET (FP) PO SCH (22:03)
[2019-05-09] MEDS: PATIENT'S OWN MEDICATION (NON-FORMULARY) (Simvastatin [Simvastatin] 20 MG) PO SCH (22:03)
[2019-05-10] MEDS: chlordiazePOXIDE HCL 10 MG CAPSULE PO SCH ×2 (06:03→18:00)
[2019-05-10] MEDS ORDERED: METHADONE HCL 10 MG TABLET (FOR DETOX USE ONLY) PO ONE (10:00)
[2019-05-10] MEDS: ASPIRIN 81 MG CHEWABLE TABLETS PO SCH (10:11)
[2019-05-10] MEDS: PRENATAL VITAMINS W/ FOLIC ACID TABLET (FP) PO SCH ×2 (10:11→10:41)
[2019-05-10] MEDS: LOSARTAN POTASSIUM 25 MG TABLET PO SCH (10:11)
[2019-05-10] MEDS: hydrOXYzine PAMOATE 25 MG CAPSULE (FP) PO PRN ×3 (10:13→21:26)
--- NOTE | 2019-05-10 15:33 | PN ---
[facility] CIWA - CIWA Score Nausea/Vomitin-No Nausea/No Vomiting Muscle Tremors: 1-None Visible, but [place] Anxiety: 2 Agitation: 0-Normal Activity Paroxysmal Sweats: 1-Minimal Palms Moist Orientation: 0-Oriented Tacttile Disturbances: 1-Very Mild Itch/Numbness Auditory Disturbances: 0-None Visual Disturbances: 0-None Headache: 1-Very Mild CIWA-Ar Total Score: 6 BHS COWS - Scale Resting Pulse: 0= [place] 80 or Below Sweatin= Chills/Flushing Restless Observation: 1= Difficult to Sit Still Pupil Size: 0= Normal to Room Light Bone or Joint Aches: 1= Mild Discomfort Runny Nose/ Eye Tearin= Nasal Congestion GI Upset > 30mins: 0= None Tremor Observation of Outstretched Hands: 1= Tremor [place], Not Seen Yawning Observation: 0= None Anxiety or Irritability: 1=Feels Anxious/Irritable Goose Flesh Skin: 0=Smooth Skin COWS Score: 6 S Progress Note (SOAP) Subjective: c/o of interrupted sleep, chills, swetas Objective: 05/10/19 15:31 Vital Signs Temperature 96.4 F L 05/10/19 09:39 Pulse Rate 60 05/10/19 09:39 Respiratory Rate 18 05/10/19 09:39 Blood Pressure 133/82 05/10/19 09:39 O2 Sat by Pulse Oximetry (%) Laboratory Last Values WBC 5.2 K/mm3 (4.0-10.0) 05/08/19 08:45 RBC 4.23 M/mm3 (4.00-5.60) 05/08/19 08:45 Hgb 13.1 GM/dL (11.7-16.9) 05/08/19 08:45 Hct 38.8 % (35.4-49) 05/08/19 08:45 MCV 91.8 fl (80-96) 05/08/19 08:45 MCH 31.0 pg (25.7-33.7) 05/08/19 08:45 MCHC 33.8 g/dl (32.0-35.9) 05/08/19 08:45 RDW 13.3 % (11.9-15.9) 05/08/19 08:45 Plt Count 255 K/MM3 (134-434) 05/08/19 08:45 MPV 7.9 fl (7.5-11.1) 05/08/19 08:45 Absolute Neuts (auto) 2.9 K/mm3 (1.5-8.0) 05/08/19 08:45 Neutrophils % 55.2 % (42.8-82.8) 05/08/19 08:45 Lymphocytes % 25.4 % (8-40) 05/08/19 08:45 Monocytes % 11.8 % (3.8-10.2) H 05/08/19 08:45 Eosinophils % 6.9 % (0-4.5) H 05/08/19 08:45 Basophils % 0.7 % (0-2.0) 05/08/19 08:45 Nucleated RBC % 0 % (0-0) 05/08/19 08:45 Sodium 140 mmol/L (136-145) 05/08/19 08:45 Potassium 4.2 mmol/L (3.5-5.1) 05/08/19 08:45 Chloride 106 mmol/L (98-107) 05/08/19 08:45 Carbon Dioxide 27 mmol/L (21-32) 05/08/19 08:45 Anion Gap 7 MMOL/L (8-16) L 05/08/19 08:45 BUN 11.2 mg/dL (7-18) 05/08/19 08:45 Creatinine 0.8 mg/dL (0.55-1.3) 05/08/19 08:45 Est GFR (CKD-EPI)AfAm 119.04 05/08/19 08:45 Est GFR (CKD-EPI)NonAf 102.71 05/08/19 08:45 Random Glucose 87 mg/dL (74-106) 05/08/19 08:45 Calcium 8.7 mg/dL (8.5-10.1) 05/08/19 08:45 Total Bilirubin 0.4 mg/dL (0.2-1) 05/08/19 08:45 AST 14 U/L (15-37) L 05/08/19 08:45 ALT 19 U/L (13-61) 05/08/19 08:45 Alkaline Phosphatase 75 U/L (45-117) 05/08/19 08:45 Total Protein 6.4 g/dl (6.4-8.2) 05/08/19 08:45 Albumin 3.4 g/dl (3.4-5.0) 05/08/19 08:45 RPR Titer Nonreactive (NONREACTIVE) 05/08/19 08:45 HIV 1&2 Antibody Screen Negative 05/08/19 08:45 HIV P24 Antigen Negative 05/08/19 08:45 Assessment: 05/10/19 15:32 Aox3 no acute distress full ROM ambulating in the unit Plan: increase po fluids continue detox d/c in AM
[2019-05-10] MEDS: PATIENT'S OWN MEDICATION (NON-FORMULARY) (Simvastatin [Simvastatin] 20 MG) PO SCH (21:26)
[2019-05-10] MEDS: MELATONIN 5 MG TABLETS PO PRN (21:26)
[2019-05-10] MEDS: THIAMINE HCL 100 MG TABLET (FP) PO SCH (21:27)
[2019-05-11] MEDS ORDERED: chlordiazePOXIDE HCL 10 MG CAPSULE PO ONE (05:00)
[2019-05-11] MEDS ORDERED: METHADONE HCL 5 MG TABLET (FOR DETOX USE ONLY) PO ONE (06:00)
[2019-05-11 07:33] VITALS: BP 119/70; PULSE 54; TEMP 97.2
--- NOTE | 2019-05-11 08:22 | DS ---
[facility] Detox Discharge Summary Admission Date: 05/06/19 Discharge Date: 05/11/19 - History Present History: Alcohol Dependence, Opioid Dependence - Physical Exam Results Vital Signs: Vital Signs Temperature 97.2 F L 05/11/19 07:32 Pulse Rate 54 L 05/11/19 07:32 Respiratory Rate 18 05/11/19 07:32 Blood Pressure 119/70 05/11/19 07:32 O2 Sat by Pulse Oximetry (%) Pertinent Admission Physical Exam Findings: pt arrived in withdrawals Laboratory Tests 05/08/19 05/08/19 05/08/19 08:45 08:45 08:45 WBC 5.2 RBC 4.23 Hgb 13.1 Hct 38.8 MCV 91.8 MCH 31.0 MCHC 33.8 RDW 13.3 Plt Count 255 MPV 7.9 Absolute Neuts (auto) 2.9 Neutrophils % 55.2 Lymphocytes % 25.4 Monocytes % 11.8 H Eosinophils % 6.9 H Basophils % 0.7 Nucleated RBC % 0 Sodium 140 Potassium 4.2 Chloride 106 Carbon Dioxide 27 Anion Gap 7 L BUN 11.2 Creatinine 0.8 Est GFR (CKD-EPI)AfAm 119.04 Est GFR (CKD-EPI)NonAf 102.71 Random Glucose 87 Calcium 8.7 Total Bilirubin 0.4 AST 14 L ALT 19 Alkaline Phosphatase 75 Total Protein 6.4 Albumin 3.4 RPR Titer HIV 1&2 Antibody Screen Negative HIV P24 Antigen Negative 05/08/19 08:45 WBC RBC Hgb Hct MCV MCH MCHC RDW Plt Count MPV Absolute Neuts (auto) Neutrophils % Lymphocytes % Monocytes % Eosinophils % Basophils % Nucleated RBC % Sodium Potassium Chloride Carbon Dioxide Anion Gap BUN Creatinine Est GFR (CKD-EPI)AfAm Est GFR (CKD-EPI)NonAf Random Glucose Calcium Total Bilirubin AST ALT Alkaline Phosphatase Total Protein Albumin RPR Titer Nonreactive HIV 1&2 Antibody Screen HIV P24 Antigen today pt is aaox3 ambulating no acute distress no s/s of withdrawals - Treatment Hospital Course: Detox Protocol Followed, Detoxed Safely, Responded well, Discharged Condition Good, Rehab Referral Accepted Patient has Accepted a Rehab Referral to: pt [facility] to [facility] - Medication Discharge Medications: Ambulatory Orders Aspirin 81 mg PO DAILY 01/19/19 Losartan Potassium 10 mg PO DAILY 01/19/19 Simvastatin 20 mg PO HS 06/14/19 Aspirin [ASA -] 81 mg PO DAILY 7 Days #7 tab.chew 05/10/19 Losartan Potassium [Cozaar -] 25 mg PO DAILY 7 Days #7 tablet 05/10/19 - Diagnosis (1) Nicotine dependence Current Visit: Yes Status: Chronic Qualifiers: Nicotine product type: cigarettes Substance use status: uncomplicated Qualified Code(s): F17.210 - Nicotine dependence, cigarettes, uncomplicated (2) Alcohol dependence with uncomplicated withdrawal Current Visit: Yes Status: Chronic (3) Opioid dependence with withdrawal Current Visit: Yes Status: Chronic (4) HLD (hyperlipidemia) Current Visit: Yes Status: Chronic Qualifiers: Hyperlipidemia type: unspecified Qualified Code(s): E78.5 - Hyperlipidemia , unspecified (5) HTN (hypertension) Current Visit: Yes Status: Chronic Qualifiers: Hypertension type: essential hypertension Qualified Code(s): I10 - Essential (primary) hypertension - AMA Did Patient Leave Against Medical Advice: No
== END 2019-05-11 08:33 | disposition home or self-care (01) | DRG 773 ==
LOC: YASAS 10:47 → Y6N 14:43
PROVIDERS: ADMIT Surgery; ATTEND Surgery
PROC: HZ2ZZZZ Detoxification Services for Substance Abuse Treatment (ICD-10-PCS; principal; 2019-05-06)
DX: F11.23 Opioid dependence with withdrawal (principal); F10.230 Alcohol dependence with withdrawal, uncomplicated; F17.210 Nicotine dependence, cigarettes, uncomplicated; I10 Essential (primary) hypertension; E78.5 Hyperlipidemia, unspecified; Z79.82 Long term (current) use of aspirin
CPT/HCPCS: 36415; 80053; 85025; 86593; 87389

== ENCOUNTER 2019-06-26 18:49 | Inpatient (IN) | payer OTHER ==
[2019-06-26 22:21] VITALS: BMI 26.6
--- NOTE | 2019-06-27 00:48 | HP ---
"COWS - Scale Resting Pulse: 0= [place] 80 or Below Sweatin=Flushed/Facial Moisture Restless Observation: 0= Sits Still Pupil Size: 2= Moderately Dilated (Pupils = 4 mm) Bone or Joint Aches: 0= None Runny Nose/ Eye Tearin= None GI Upset > 30mins: 0= None Tremor Observation: 2= Slight Tremor Visible Yawning Observation: 0= None Anxiety or Irritability: 0= None Goose Flesh Skin: 0=Smooth Skin COWS Score: 6 CIWA Score Nausea/Vomitin-No Nausea/No Vomiting Muscle Tremors: 3 Anxiety: 0-No Anxiety, at Ease Agitation: 0-Normal Activity Paroxysmal Sweats: 3 (Increased facial moisture) Orientation: 0-Oriented Tacttile Disturbances: 0-None Auditory Disturbances: 0-None Visual Disturbances: 0-None Headache: 0-None Present CIWA-Ar Total Score: 6 - Admission Criteria OASAS Guidelines: Admission for Medically Managed Detox: Requires at least one of the followin. CIWA greater than 12 2. Seizures within the past 24 hours 3. Delirium tremens within the past 24 hours 4. Hallucinations within the past 24 hours 5. Acute intervention needed for co occurring medical disorder 6. Acute intervention needed for co occurring psychiatric disorder 7. Severe withdrawal that cannot be handled at a lower level of care (continued vomiting, continued diarrhea, abnormal vital signs) requiring intravenous medication and/or fluids 8. Patient presents the following: Acute intervention needed for co-occurring med or psych disorder (Intoxicated. LESLEY = 0.098; Co-occuring opioid use disorder) Admission Criteria Met: Admission criteria met Admitting History and Physical - Smoking History Smoking history: Current every day smoker Have you smoked in the past 12 months: Yes Aproximately how many cigarettes per day: 4 - Alcohol/Substance Use Hx Alcohol Use: Yes Admission ROS BHS - HPI Chief Complaint: I need help stopping drugs. Allergies/Adverse Reactions: Allergies Allergy/AdvReac Type Severity Reaction Status Date / Time No Known Allergies Allergy Verified 06/26/19 22:15 History of Present Illness: 54 yo presents w/alcohol and opiate use, seeking detox Last here 05/11/2019 - states relapsed 1 week after discharge. UTox:+ FEN/MOP/MTD LESLEY: 0.098 Denies OD's, seizures. Heroin use began at age 37. Currently uses 6 bags/day - nasal x years. Has a Narcan kit at home. Methadone - illicit use. States last used yesterday. Unknown amount. Alcohol use since age 24. Currently drinks 2-3 qts malt liquor daily. Last drink a few hours ago. Nicotine use began at age 53. States smokes 4/ day. PMHx: HTN; Cholesterolemia RPR: 05/08/19 - Non-reactive EK01/19/19 - reviewed MHHx: Denies MH problems. Denies thoughts of harming self or others. SHx: Domiciled. Unemployed. Denies legal issues. Search Terms: Brennon Lauren, 1965 Search Date: 06/27/2019 12:46:59 AM The Drug Utilization Report below displays all of the controlled substance prescriptions, if any, that your patient has filled in the last twelve months. The information displayed on this report is compiled from pharmacy submissions to the Department, and accurately reflects the information as submitted by the pharmacies. This report was requested by: Ellie Johnson | Reference #: [id number] There are no results for the search terms that you entered. Exam Limitations: Intoxication (LESLEY: 0.098) - Ebola screening Have you traveled outside of the country in the last 21 days: No (N) Have you had contact with anyone from an Ebola affected area: No Have you been sick,other than usual withdrawal symptoms: No Do you have a fever: No - Review of Systems Constitutional: Diaphoresis, Weight Stable EENT: reports: Blurred Vision Respiratory: reports: No Symptoms reported Cardiac: reports: No Symptoms Reported GI: reports: No Symptoms Reported : reports: No Symptoms Reported Musculoskeletal: reports: No Symptoms Reported Integumentary: reports: No Symptoms Reported Neuro: reports: Numbness (Numbness in fingers) Endocrine: reports: Increased Thirst Hematology: reports: No Symptoms Reported Psychiatric: reports: Mood/Affect Appropiate, Orientated x3 Patient History - Patient Medical History Hx Anemia: No Hx Asthma: No Hx Chronic Obstructive Pulmonary Disease (COPD): No Hx Cancer: No Hx Cardiac Disorders: No Hx Congestive Heart Failure: No Hx Hypertension: Yes (on med) Hx Hypercholesterolemia: Yes (on med) Hx Pacemaker: No HX Cerebrovascular Accident: No Hx Seizures: No Hx Dementia: No Hx Diabetes: No Hx Gastrointestinal Disorders: No Hx Liver Disease: No Hx Genitourinary Disorders: No Hx Sexually Transmitted Disorders: No Hx Renal Disease (ESRD): No Hx Thyroid Disease: No Hx Human Immunodeficiency Virus (HIV): No Hx Hepatitis C: No Hx Depression: No Hx Suicide Attempt: No Hx Bipolar Disorder: No Hx Schizophrenia: No - Patient Surgical History Past Surgical History: No Hx Neurologic Surgery: No Hx Cataract Extraction: No Hx Cardiac Surgery: No Hx Lung Surgery: No Hx Breast Surgery: No Hx Breast Biopsy: No Hx Abdominal Surgery: No Hx Appendectomy: No Hx Cholecystectomy: No Hx Genitourinary Surgery: No Hx Section: No Hx Orthopedic Surgery: No Anesthesia Reaction: No - PPD History Previous Implant?: Yes Documented Results: Negative w/proof Implanted On Prior [facility] Admission?: Yes Date: 01/21/19 Results: 0 mm PPD to be Administered?: No - Smoking Cessation Smoking history: Current every day smoker Have you smoked in the past 12 months: Yes Aproximately how many cigarettes per day: 4 Hx Chewing Tobacco Use: No Initiated information on smoking cessation: Yes 'Breaking Loose' booklet given: 06/27/19 - Substances abused Heroin Substance route: Inhalation Frequency: Daily Amount used: 6 bags a day Age of first use: 37 Date of last use: 06/26/19 Alcohol Substance route: Oral Frequency: Daily Amount used: 2 pints vodka Age of first use: 24 Date of last use: 06/26/19 Admission Physical Exam BHS - Vital Signs Vital Signs: Vital Signs - 24 hr 06/26/19 22:18 Temperature 97.0 F L Pulse Rate 80 Respiratory 16 Rate Blood Pressure 122/75 - Physical General Appearance: Yes: Nourished, Mild Distress, Intoxicated (LESLEY: 0.098), Tremorous (Mild tremors), Sweating (Increased facial moisture) HEENTM: Yes: EOMI (Jerking movement of eyes upon lateral gaze), Hearing grossly Normal, Normocephalic, Normal Voice, YEIMY (Pupils = 4 mm), Pharynx Normal Respiratory: Yes: Lungs Clear (Pulse Ox = 99 %), Normal Breath Sounds, No Respiratory Distress Neck: Yes: No masses,lesions,Nodules, Supple Breast: Yes: Breast Exam Deferred Cardiology: Yes: Regular Rhythm, Regular Rate, S1, S2 Abdominal: Yes: Non Tender, Flat, Soft, Increased Bowel Sounds Genitourinary: Yes: Within Normal Limits Back: Yes: Normal Inspection Musculoskeletal: Yes: full range of Motion, Gait Steady Extremities: Yes: Normal Capillary Refill, Tremors (Mild tremors) 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 NML intact (Jerking movement of eyes upon lateral gaze), Fully Oriented (Sleepy), Motor Strength 5/5 Integumentary: Yes: Normal Color, Warm - Diagnostic (1) Alcohol dependence with uncomplicated withdrawal Current Visit: Yes Status: Acute Comment: w/ current intoxication (2) HLD (hyperlipidemia) Current Visit: Yes Status: Chronic Qualifiers: Hyperlipidemia type: unspecified Qualified Code(s): E78.5 - Hyperlipidemia , unspecified (3) HTN (hypertension) Current Visit: Yes Status: Chronic Qualifiers: Hypertension type: essential hypertension Qualified Code(s): I10 - Essential (primary) hypertension (4) Nicotine dependence Current Visit: Yes Status: Chronic Qualifiers: Nicotine product type: cigarettes Substance use status: uncomplicated Qualified Code(s): F17.210 - Nicotine dependence, cigarettes, uncomplicated (5) Opioid dependence with withdrawal Current Visit: Yes Status: Acute Comment: early withdrawal Cleared for Admission [facility] - Detox or Rehab [facility] Level of Care: Medically Managed Detox Regimen/Protocol: Methadone/Librium Claeared for Rehab Admission: No Breathalyzer - Breathalyzer Breathalyzer: 0.098 Urine Drug Screen - Test Device Lot number: [id number] Expiration date: 01/05/21 - Control Is test valid?: Yes - Results Drug screen NEGATIVE: Yes Urine drug screen results: FEN-Fentanyl, MOP-Opiates Inpatient Rehab Admission - Rehab Decision to Admit Inpatient rehab admission?: No"
[2019-06-27] MEDS ORDERED: BISMUTH SUBSALICYLATE 524 MG/30 ML UD PO PRN (01:19)
[2019-06-27] MEDS ORDERED: MENTHOL/PHENOL 1 EACH UD MM PRN (01:19)
[2019-06-27] MEDS ORDERED: chlordiazePOXIDE HCL 10 MG CAPSULE PO PRN (01:19)
[2019-06-27] MEDS ORDERED: MAG HYDROX/AL HYDROX/SIMETH 30 ML UNIT-DOSE CUP PO PRN (01:19)
[2019-06-27] MEDS ORDERED: IBUPROFEN 400 MG TABLET (FP) PO PRN (01:19)
[2019-06-27] MEDS ORDERED: ACETAMINOPHEN 325 MG TABLET (FP) PO PRN ×2 (01:19)
[2019-06-27] MEDS ORDERED: MAGNESIUM HYDROX 2400MG/30ML ORAL SUSPENSION 30 ML CUP PO PRN (01:19)
[2019-06-27] MEDS ORDERED: cloNIDine HCL 0.1 MG TABLET PO PRN (01:19)
[2019-06-27] MEDS ORDERED: MAGNESIUM CITRATE 300 ML BOTTLE PO PRN (01:19)
[2019-06-27] MEDS ORDERED: NICOTINE POLACRILEX 2 MG GUM BUC PRN (01:19)
[2019-06-27] MEDS ORDERED: METHADONE HCL 10 MG TABLET (FOR DETOX USE ONLY) PO ONE (06:00)
[2019-06-27] MEDS: chlordiazePOXIDE HCL 25 MG CAPSULE PO SCH ×3 (06:04→22:06)
[2019-06-27] MEDS: PRENATAL VITAMINS W/ FOLIC ACID TABLET (FP) PO SCH (10:09)
[2019-06-27] MEDS: ASPIRIN 81 MG CHEWABLE TABLETS PO SCH (10:10)
[2019-06-27] MEDS: LOSARTAN POTASSIUM 25 MG TABLET PO SCH (10:10)
[2019-06-27 10:14] LABS: HEMATOCRIT 39.7 % (35.4-49); HEMOGLOBIN 13.4 GM/dL (11.7-16.9); MCH 30.8 pg (25.7-33.7); MCHC 33.7 g/dl (32.0-35.9); MEAN CELL VOLUME 91.6 fl (80-96); MEAN PLT VOLUME 7.4 fl (7.5-11.1); PLATELET COUNT 315 K/MM3 (134-434); RBC 4.33 M/mm3 (4.00-5.60); RDW 13.4 % (11.9-15.9); WHITE BLOOD COUNT 5.1 K/mm3 (4.0-10.0)
[2019-06-27 10:29] LABS: ALBUMIN 3.4 g/dl (3.4-5.0); BILIRUBIN,TOTAL 0.4 mg/dL (0.2-1); BLOOD UREA NITROGEN 13.8 mg/dL (7-18); CALCIUM 8.3 mg/dL (8.5-10.1); CREATININE 0.9 mg/dL (0.55-1.3); POTASSIUM 4.3 mmol/L (3.5-5.1); TOT PROT 6.2 g/dl (6.4-8.2)
--- NOTE | 2019-06-27 12:21 | PN ---
S CIWA - CIWA Score Nausea/Vomitin-Mild Nausea/No Vomiting Muscle Tremors: 2 Anxiety: 2 Agitation: 2 Paroxysmal Sweats: No Perspiration Orientation: 0-Oriented Tacttile Disturbances: 1-Very Mild Itch/Numbness Auditory Disturbances: 0-None Visual Disturbances: 0-None Headache: 2-Mild CIWA-Ar Total Score: 10 BHS COWS - Scale Resting Pulse: 0= [place] 80 or Below Sweatin= No chills or Flushing Restless Observation: 1= Difficult to Sit Still Pupil Size: 1= Pupils >than Normal Bone or Joint Aches: 1= Mild Discomfort Runny Nose/ Eye Tearin= Nasal Congestion GI Upset > 30mins: 1= Stomach Cramp Tremor Observation of Outstretched Hands: 2= Slight Tremor Visible Yawning Observation: 1= 1-2x During Session Anxiety or Irritability: 2=Irritable/Anxious Goose Flesh Skin: 0=Smooth Skin COWS Score: 10 BHS Progress Note (SOAP) Subjective: alert,irritable,anxious,interrupted sleep,tremor,pain in the body and back, tremor Objective: 06/27/19 12:20 Vital Signs Temperature 98.1 F 06/27/19 09:35 Pulse Rate 78 06/27/19 09:35 Respiratory Rate 18 06/27/19 09:35 Blood Pressure 132/75 06/27/19 09:35 O2 Sat by Pulse Oximetry (%) 06/27/19 12:20 Laboratory Last Values WBC 5.1 K/mm3 (4.0-10.0) 06/27/19 08:15 RBC 4.33 M/mm3 (4.00-5.60) 06/27/19 08:15 Hgb 13.4 GM/dL (11.7-16.9) 06/27/19 08:15 Hct 39.7 % (35.4-49) 06/27/19 08:15 MCV 91.6 fl (80-96) 06/27/19 08:15 MCH 30.8 pg (25.7-33.7) 06/27/19 08:15 MCHC 33.7 g/dl (32.0-35.9) 06/27/19 08:15 RDW 13.4 % (11.9-15.9) 06/27/19 08:15 Plt Count 315 K/MM3 (134-434) D 06/27/19 08:15 MPV 7.4 fl (7.5-11.1) L 06/27/19 08:15 Sodium 137 mmol/L (136-145) 06/27/19 08:15 Potassium 4.3 mmol/L (3.5-5.1) 06/27/19 08:15 Chloride 104 mmol/L (98-107) 06/27/19 08:15 Carbon Dioxide 29 mmol/L (21-32) 06/27/19 08:15 Anion Gap 4 MMOL/L (8-16) L 06/27/19 08:15 BUN 13.8 mg/dL (7-18) 06/27/19 08:15 Creatinine 0.9 mg/dL (0.55-1.3) 06/27/19 08:15 Est GFR (CKD-EPI)AfAm 113.41 06/27/19 08:15 Est GFR (CKD-EPI)NonAf 97.85 06/27/19 08:15 Random Glucose 83 mg/dL (74-106) 06/27/19 08:15 Calcium 8.3 mg/dL (8.5-10.1) L 06/27/19 08:15 Total Bilirubin 0.4 mg/dL (0.2-1) 06/27/19 08:15 AST 20 U/L (15-37) 06/27/19 08:15 ALT 22 U/L (13-61) 06/27/19 08:15 Alkaline Phosphatase 86 U/L (45-117) 06/27/19 08:15 Total Protein 6.2 g/dl (6.4-8.2) L 06/27/19 08:15 Albumin 3.4 g/dl (3.4-5.0) 06/27/19 08:15 Assessment: 06/27/19 12:21 withdrawal symptom Plan: continue detox methadone and librium regimen
[2019-06-27] MEDS: MELATONIN 5 MG TABLETS PO PRN (22:07)
[2019-06-27] MEDS: THIAMINE HCL 100 MG TABLET (FP) PO SCH (22:08)
[2019-06-28] MEDS: chlordiazePOXIDE 5 MG CAPSULE PO SCH ×3 (06:52→21:17)
[2019-06-28] MEDS ORDERED: METHADONE HCL 5 MG TABLET (FOR DETOX USE ONLY) PO ONE (10:00)
[2019-06-28] MEDS: ASPIRIN 81 MG CHEWABLE TABLETS PO SCH (10:27)
[2019-06-28] MEDS: PRENATAL VITAMINS W/ FOLIC ACID TABLET (FP) PO SCH (10:27)
[2019-06-28] MEDS: LOSARTAN POTASSIUM 25 MG TABLET PO SCH (12:00)
--- NOTE | 2019-06-28 12:17 | PN ---
[facility] CIWA - CIWA Score Nausea/Vomitin-Mild Nausea/No Vomiting Muscle Tremors: 1-None Visible, but [place] Anxiety: 2 Agitation: 2 Paroxysmal Sweats: No Perspiration Orientation: 0-Oriented Tacttile Disturbances: 1-Very Mild Itch/Numbness Auditory Disturbances: 0-None Visual Disturbances: 0-None Headache: 2-Mild CIWA-Ar Total Score: 9 BHS COWS - Scale Resting Pulse: 0= [place] 80 or Below Sweatin= No chills or Flushing Restless Observation: 1= Difficult to Sit Still Pupil Size: 1= Pupils >than Normal Bone or Joint Aches: 1= Mild Discomfort Runny Nose/ Eye Tearin= Nasal Congestion GI Upset > 30mins: 1= Stomach Cramp Tremor Observation of Outstretched Hands: 1= Tremor [place], Not Seen Yawning Observation: 1= 1-2x During Session Anxiety or Irritability: 2=Irritable/Anxious Goose Flesh Skin: 0=Smooth Skin COWS Score: 9 BHS Progress Note (SOAP) Subjective: alert,irritable,anxious,interrupted sleep,pain in the body Objective: 06/28/19 12:16 Vital Signs Temperature 97.5 F L 06/28/19 11:13 Pulse Rate 68 06/28/19 11:13 Respiratory Rate 16 06/28/19 11:13 Blood Pressure 136/77 06/28/19 11:13 O2 Sat by Pulse Oximetry (%) Assessment: 06/28/19 12:16 withdrawal symptom Plan: continue detox methadone and librium regimen
[2019-06-28] MEDS: THIAMINE HCL 100 MG TABLET (FP) PO SCH (21:19)
[2019-06-29] MEDS ORDERED: chlordiazePOXIDE HCL 10 MG CAPSULE PO PRN
[2019-06-29] MEDS: chlordiazePOXIDE HCL 10 MG CAPSULE PO SCH ×3 (06:19→22:07)
[2019-06-29] MEDS ORDERED: METHADONE HCL 10 MG TABLET (FOR DETOX USE ONLY) PO ONE (10:00)
[2019-06-29] MEDS: ASPIRIN 81 MG CHEWABLE TABLETS PO SCH (10:24)
[2019-06-29] MEDS: PRENATAL VITAMINS W/ FOLIC ACID TABLET (FP) PO SCH (10:24)
[2019-06-29] MEDS: LOSARTAN POTASSIUM 25 MG TABLET PO SCH (10:24)
--- NOTE | 2019-06-29 11:18 | PN ---
S CIWA - CIWA Score Nausea/Vomitin-No Nausea/No Vomiting Muscle Tremors: 2 Anxiety: 1-Mildly Anxious Agitation: 2 Paroxysmal Sweats: 1-Minimal Palms Moist Orientation: 0-Oriented Tacttile Disturbances: 0-None Auditory Disturbances: 0-None Visual Disturbances: 0-None Headache: 0-None Present CIWA-Ar Total Score: 6 BHS COWS - Scale Resting Pulse: 0= AR 80 or Below Sweatin= Chills/Flushing Restless Observation: 1= Difficult to Sit Still Pupil Size: 0= Normal to Room Light Bone or Joint Aches: 1= Mild Discomfort Runny Nose/ Eye Tearin= Nasal Congestion GI Upset > 30mins: 1= Stomach Cramp Tremor Observation of Outstretched Hands: 1= Tremor [place], Not Seen Yawning Observation: 1= 1-2x During Session Anxiety or Irritability: 1=Feels Anxious/Irritable Goose Flesh Skin: 0=Smooth Skin COWS Score: 8 [facility] Progress Note (SOAP) Subjective: sweats chills body aches interrupted sleep Objective: 06/29/19 11:17 Vital Signs Temperature 98.2 F 06/29/19 09:44 Pulse Rate 67 06/29/19 09:44 Respiratory Rate 16 06/29/19 09:44 Blood Pressure 151/94 06/29/19 09:44 O2 Sat by Pulse Oximetry (%) Laboratory Tests 06/27/19 06/27/19 08:15 08:15 WBC 5.1 RBC 4.33 Hgb 13.4 Hct 39.7 MCV 91.6 MCH 30.8 MCHC 33.7 RDW 13.4 Plt Count 315 D MPV 7.4 L Sodium 137 Potassium 4.3 Chloride 104 Carbon Dioxide 29 Anion Gap 4 L BUN 13.8 Creatinine 0.9 Est GFR (CKD-EPI)AfAm 113.41 Est GFR (CKD-EPI)NonAf 97.85 Random Glucose 83 Calcium 8.3 L Total Bilirubin 0.4 AST 20 ALT 22 Alkaline Phosphatase 86 Total Protein 6.2 L Albumin 3.4 aaox3 ambulating no acute distress Assessment: 06/29/19 11:18 withdrawals Plan: continue detox increase fluids
[2019-06-29] MEDS: MELATONIN 5 MG TABLETS PO PRN (22:08)
[2019-06-29] MEDS: THIAMINE HCL 100 MG TABLET (FP) PO SCH (22:08)
[2019-06-30] MEDS ORDERED: chlordiazePOXIDE HCL 10 MG CAPSULE PO ONE (05:00)
[2019-06-30] MEDS ORDERED: METHADONE HCL 5 MG TABLET (FOR DETOX USE ONLY) PO ONE (06:00)
[2019-06-30 06:57] VITALS: BP 131/72; PULSE 58; TEMP 98.4
--- NOTE | 2019-06-30 18:17 | DS ---
[facility] Detox Discharge Summary Admission Date: 06/27/19 Discharge Date: 06/30/19 - History Present History: Alcohol Dependence, Opioid Dependence Additional Comments: Patient left Detox unit early in AM prior to time of arrival of [facility] onto Detox Unit. Thus, Pre-Discharge Medical Assessment unable to be done. As per Hospital Nursing Assistant Caterina Churchill, Patient was referred to '[facility] for aftercare. Pertinent Past History: Nicotine Dependence, Hyperlipidemia, HTN. - Physical Exam Results Vital Signs: Vital Signs Temperature 98.4 F 06/30/19 06:56 Pulse Rate 58 L 06/30/19 06:56 Respiratory Rate 18 06/30/19 06:56 Blood Pressure 131/72 06/30/19 06:56 O2 Sat by Pulse Oximetry (%) Pertinent Admission Physical Exam Findings: WITHDRAWAL SYMPTOMS. Laboratory Tests 06/27/19 06/27/19 08:15 08:15 WBC 5.1 RBC 4.33 Hgb 13.4 Hct 39.7 MCV 91.6 MCH 30.8 MCHC 33.7 RDW 13.4 Plt Count 315 D MPV 7.4 L Sodium 137 Potassium 4.3 Chloride 104 Carbon Dioxide 29 Anion Gap 4 L BUN 13.8 Creatinine 0.9 Est GFR (CKD-EPI)AfAm 113.41 Est GFR (CKD-EPI)NonAf 97.85 Random Glucose 83 Calcium 8.3 L Total Bilirubin 0.4 AST 20 ALT 22 Alkaline Phosphatase 86 Total Protein 6.2 L Albumin 3.4 LABS NOTED. - Treatment Hospital Course: Detox Protocol Followed, Detoxed Safely, Responded well, Discharged Condition Good Patient has Accepted a Rehab Referral to: PATIENT REFERRED TO [facility] FOR AFTERCARE. - Medication Discharge Medications: Ambulatory Orders Simvastatin 20 mg PO HS 01/19/19 Gabapentin 300 mg PO TID 06/26/19 Aspirin [ASA -] 81 mg PO DAILY 7 Days #14 tab.chew 06/30/19 Losartan Potassium [Cozaar -] 25 mg PO DAILY 7 Days #14 tablet 06/30/19 - Diagnosis (1) Alcohol dependence with uncomplicated withdrawal Status: Acute (2) Opioid dependence with withdrawal Status: Acute (3) HLD (hyperlipidemia) Status: Chronic Qualifiers: Hyperlipidemia type: unspecified Qualified Code(s): E78.5 - Hyperlipidemia , unspecified (4) HTN (hypertension) Status: Chronic Qualifiers: Hypertension type: essential hypertension Qualified Code(s): I10 - Essential (primary) hypertension (5) Nicotine dependence Status: Chronic Qualifiers: Nicotine product type: cigarettes Substance use status: uncomplicated Qualified Code(s): F17.210 - Nicotine dependence, cigarettes, uncomplicated - AMA Did Patient Leave Against Medical Advice: No
== END 2019-06-30 07:45 | disposition home or self-care (01) | DRG 773 ==
LOC: YASAS 18:49 → Y6N 06-27 01:35
PROVIDERS: ADMIT Allergy & Immunology; ATTEND Allergy & Immunology
PROC: HZ2ZZZZ Detoxification Services for Substance Abuse Treatment (ICD-10-PCS; principal; 2019-06-27)
DX: F10.230 Alcohol dependence with withdrawal, uncomplicated (principal); F11.23 Opioid dependence with withdrawal; F17.210 Nicotine dependence, cigarettes, uncomplicated; E78.5 Hyperlipidemia, unspecified; I10 Essential (primary) hypertension
CPT/HCPCS: 36415; 80053; 85027

== ENCOUNTER 2020-03-16 16:26 | Inpatient (IN) | payer OTHER ==
[2020-03-16 16:56] VITALS: BMI 28.1
--- NOTE | 2020-03-16 18:30 | BHS.RME ---
Substance Use & Tx History - Substance Use History Heroin Substance amount: 6-7 bags Frequency of use: Daily Substance route: Inhalation (ex: sniffing or snorting) Date of Last Use: 03/15/20 Alcohol Substance amount: 2 pints 2- 6 packs of beer Frequency of use: Daily Substance route: Oral Date of Last Use: 03/16/20 - Last Treatment Date of last treatment: 06/27/19 Where was last treatment: Detox Physical/Psych/Mental Status - Behavior General Behavior: Increased activity (restlessness, agitation) Eye Contact: Normal Other Behaviors: Mannerisms - Cooperativeness Cooperativeness: Cooperative - Thinking Thought Processes: Logical Thought content: Future oriented - Physical Health Problems Is patient presently having any pain?: Yes (stomach) Does patient presently have any injuries (include location): No Does patient currently have a fever: No COWS - Scale Resting Pulse: 1= AR 81-100 Sweatin= Chills/Flushing Restless Observation: 1= Difficult to Sit Still Pupil Size: 1= Pupils >than Normal Bone or Joint Aches: 2= Severe Diffuse Aches Runny Nose/ Eye Tearin= Runny Nose/Eyes GI Upset > 30mins: 2= Nausea/Diarrhea Tremor Observation: 1= Tremor [place], Not Seen Yawning Observation: 1= 1-2x During Session Anxiety or Irritability: 1=Feels Anxious/Irritable Goose Flesh Skin: 3=Piloerection COWS Score: 16 CIWA Nausea/Vomitin Muscle Tremors: 2 Anxiety: 2 Agitation: 2 Paroxysmal Sweats: 2 Orientation: 0-Oriented Tacttile Disturbances: 2-Mild Itch/Numbness/Burn Auditory Disturbances: 0-None Visual Disturbances: 0-None Headache: 0-None Present CIWA-Ar Total Score: 13
--- NOTE | 2020-03-16 18:38 | HP ---
COWS - Scale Resting Pulse: 1= SD 81-100 Sweatin= Chills/Flushing Restless Observation: 1= Difficult to Sit Still Pupil Size: 1= Pupils >than Normal Bone or Joint Aches: 2= Severe Diffuse Aches Runny Nose/ Eye Tearin= Runny Nose/Eyes GI Upset > 30mins: 2= Nausea/Diarrhea Tremor Observation: 1= Tremor [place], Not Seen Yawning Observation: 1= 1-2x During Session Anxiety or Irritability: 1=Feels Anxious/Irritable Goose Flesh Skin: 3=Piloerection COWS Score: 16 CIWA Score Nausea/Vomitin Muscle Tremors: 2 Anxiety: 2 Agitation: 2 Paroxysmal Sweats: 2 Orientation: 0-Oriented Tacttile Disturbances: 2-Mild Itch/Numbness/Burn Auditory Disturbances: 0-None Visual Disturbances: 0-None Headache: 0-None Present CIWA-Ar Total Score: 13 - Admission Criteria OASAS Guidelines: Admission for Medically Managed Detox: Requires at least one of the followin. CIWA greater than 12 2. Seizures within the past 24 hours 3. Delirium tremens within the past 24 hours 4. Hallucinations within the past 24 hours 5. Acute intervention needed for co occurring medical disorder 6. Acute intervention needed for co occurring psychiatric disorder 7. Severe withdrawal that cannot be handled at a lower level of care (continued vomiting, continued diarrhea, abnormal vital signs) requiring intravenous medication and/or fluids 8. Patient presents the following: CIWA greater than 12 Admission Criteria Met: Admission criteria met Admitting History and Physical - Smoking History Smoking history: Current every day smoker Have you smoked in the past 12 months: Yes Aproximately how many cigarettes per day: 4 - Alcohol/Substance Use Hx Alcohol Use: Yes Admission ROS S - HPI Chief Complaint: I wanna clean up and get my life together Allergies/Adverse Reactions: Allergies Allergy/AdvReac Type Severity Reaction Status Date / Time No Known Allergies Allergy Verified 06/26/19 22:15 History of Present Illness: Patient is a 55 years old man who presents for alcohol and heroin detox. He reports OD last year, blackout in the past, denies seizure. Exam Limitations: No Limitations - Ebola screening Have you traveled outside of the country in the last 21 days: No Have you had contact with anyone from an Ebola affected area: No Have you been sick,other than usual withdrawal symptoms: No Do you have a fever: No - Review of Systems Constitutional: Chills, Loss of Appetite, Changes in sleep, Weight Stable EENT: reports: No Symptoms Reported Respiratory: reports: No Symptoms reported Cardiac: reports: No Symptoms Reported GI: reports: Diarrhea, Nausea, Vomiting : reports: No Symptoms Reported Musculoskeletal: reports: Joint Pain, Muscle Pain, Muscle Weakness Integumentary: reports: Sweating Neuro: reports: Numbness, Tremors, Weakness Endocrine: reports: No Symptoms Reported Hematology: reports: No Symptoms Reported Psychiatric: reports: No Sypmtoms Reported Other Systems: Reviewed and Negative Patient History - Patient Medical History Hx Anemia: No Hx Asthma: No Hx Chronic Obstructive Pulmonary Disease (COPD): No Hx Cancer: No Hx Cardiac Disorders: No Hx Congestive Heart Failure: No Hx Hypertension: Yes (on medication) Hx Hypercholesterolemia: Yes (on medication) Hx Pacemaker: No HX Cerebrovascular Accident: No Hx Seizures: No Hx Dementia: No Hx Diabetes: No Hx Gastrointestinal Disorders: No Hx Liver Disease: No Hx Genitourinary Disorders: No Hx Sexually Transmitted Disorders: No Hx Renal Disease (ESRD): No Hx Thyroid Disease: No Hx Human Immunodeficiency Virus (HIV): No Hx Hepatitis C: No Hx Depression: No Hx Suicide Attempt: No Hx Bipolar Disorder: No Hx Schizophrenia: No - Patient Surgical History Past Surgical History: No - PPD History Previous Implant?: Yes Documented Results: Negative w/proof Implanted On Prior R Admission?: Yes Date: 01/21/19 Results: 0 mm PPD to be Administered?: Yes - Smoking Cessation Smoking history: Current every day smoker Have you smoked in the past 12 months: Yes Aproximately how many cigarettes per day: 4 Hx Chewing Tobacco Use: No Initiated information on smoking cessation: Yes 'Breaking Loose' booklet given: 03/16/20 Admission Physical Exam BHS - Vital Signs Vital Signs: Vital Signs - 24 hr 03/16/20 16:55 Temperature 97.6 F Pulse Rate 86 Respiratory 18 Rate Blood Pressure 135/82 - Physical General Appearance: Yes: No Apparent Distress, Sweating HEENTM: Yes: Normal ENT Inspection, Normocephalic, Normal Voice, YEIMY Respiratory: Yes: Chest Non-Tender, Lungs Clear, Normal Breath Sounds, No Respiratory Distress, No Accessory Muscle Use Neck: Yes: No masses,lesions,Nodules, Supple Breast: Yes: Breast Exam Deferred Cardiology: Yes: Regular Rhythm, Regular Rate, S1, S2 Abdominal: Yes: Normal Bowel Sounds, Non Tender, Soft Genitourinary: Yes: Within Normal Limits Back: Yes: Normal Inspection Musculoskeletal: Yes: full range of Motion, Muscle weakness Extremities: Yes: Non-Tender, Tremors Neurological: Yes: Alert, Normal Mood/Affect, Normal Response Integumentary: Yes: Cold Lymphatic: Yes: Within Normal Limits - Diagnostic (1) Alcohol dependence with uncomplicated withdrawal Current Visit: Yes Status: Acute Comment: w/ current intoxication (2) Opioid dependence with withdrawal Current Visit: Yes Status: Acute (3) HTN (hypertension) Current Visit: Yes Status: Chronic Qualifiers: Hypertension type: essential hypertension Qualified Code(s): I10 - Essential (primary) hypertension (4) Nicotine dependence Current Visit: Yes Status: Chronic Qualifiers: Nicotine product type: cigarettes Substance use status: uncomplicated Qualified Code(s): F17.210 - Nicotine dependence, cigarettes, uncomplicated Cleared for Admission S - Detox or Rehab [facility] Level of Care: Medically Managed Detox Regimen/Protocol: Methadone/Librium Claeared for Rehab Admission: No Breathalyzer - Breathalyzer Breathalyzer: 0.071 Urine Drug Screen - Test Device Lot number: [id number] Expiration date: 11/13/21 - Control Is test valid?: Yes - Results Drug screen NEGATIVE: No Urine drug screen results: FEN-Fentanyl, MOP-Opiates Inpatient Rehab Admission - Rehab Decision to Admit Inpatient rehab admission?: No
[2020-03-16] MEDS ORDERED: NICOTINE POLACRILEX 2 MG GUM BUC PRN (18:46)
[2020-03-16] MEDS ORDERED: MAGNESIUM CITRATE 300 ML BOTTLE PO PRN (18:46)
[2020-03-16] MEDS ORDERED: METHADONE HCL 10 MG TABLET (FOR DETOX USE ONLY) PO ONE (18:46)
[2020-03-16] MEDS ORDERED: METHOCARBAMOL 500 MG TABLET PO PRN (18:46)
[2020-03-16] MEDS ORDERED: NALOXONE HCL 0.4 MG/ML VIAL IM PRN (18:46)
[2020-03-16] MEDS ORDERED: MAGNESIUM HYDROX 2400MG/30ML ORAL SUSPENSION 30 ML CUP PO PRN (18:46)
[2020-03-16] MEDS ORDERED: MAG HYDROX/AL HYDROX/SIMETH 30 ML UNIT-DOSE CUP PO PRN (18:46)
[2020-03-16] MEDS ORDERED: IBUPROFEN 400 MG TABLET (FP) PO PRN (18:46)
[2020-03-16] MEDS ORDERED: MENTHOL/PHENOL 1 EACH UD MM PRN (18:46)
[2020-03-16] MEDS ORDERED: ACETAMINOPHEN 325 MG TABLET (FP) PO PRN ×2 (18:46)
[2020-03-16] MEDS ORDERED: BISMUTH SUBSALICYLATE 524 MG/30 ML UD PO PRN (18:46)
[2020-03-16] MEDS ORDERED: chlordiazePOXIDE HCL 10 MG CAPSULE PO PRN (18:46)
[2020-03-16] MEDS: chlordiazePOXIDE HCL 25 MG CAPSULE PO SCH (20:53)
[2020-03-16] MEDS: cloNIDine HCL 0.1 MG TABLET PO PRN (20:54)
[2020-03-16] MEDS: MELATONIN 5 MG TABLETS PO SCH (20:59)
[2020-03-16] MEDS: THIAMINE HCL 100 MG TABLET (FP) PO SCH (20:59)
[2020-03-17] MEDS: chlordiazePOXIDE HCL 25 MG CAPSULE PO SCH ×3 (05:31→22:10)
--- NOTE | 2020-03-17 09:24 | EKG ---
Test Reason : Blood Pressure : / mmHG Vent. Rate : 070 BPM Atrial Rate : 070 BPM P-R Int : 156 ms QRS Dur : 090 ms QT Int : 370 ms P-R-T Axes : 008 040 -29 degrees QTc Int : 399 ms NORMAL SINUS RHYTHM NONSPECIFIC T WAVE ABNORMALITY ABNORMAL ECG WHEN COMPARED WITH ECG OF 19-JAN-2019 18:32, NO SIGNIFICANT CHANGE WAS FOUND Confirmed by Vasiliy Daigle ([id number]) on 03/17/2020 9:24:33 AM Referred By: Confirmed By:Vasiliy Daigle
[2020-03-17] MEDS ORDERED: METHADONE HCL 5 MG TABLET (FOR DETOX USE ONLY) ONE (09:40)
[2020-03-17] MEDS ORDERED: METHADONE HCL 10 MG TABLET (FOR DETOX USE ONLY) ONE (09:40)
[2020-03-17] MEDS ORDERED: METHADONE (DETOX) 20 MG, METHADONE (DETOX) 5 MG PO ONE (10:00)
[2020-03-17] MEDS: PRENATAL VITAMINS W/ FOLIC ACID TABLET (FP) PO SCH (10:09)
[2020-03-17] MEDS: NICOTINE 7 MG/24 HOURS TOPICAL PATCH TD SCH (10:10)
--- NOTE | 2020-03-17 10:11 | PN ---
[facility] CIWA - CIWA Score Nausea/Vomitin-Mild Nausea/No Vomiting Muscle Tremors: 3 Anxiety: 4-Mod. Anxious/Guarded Agitation: 2 Paroxysmal Sweats: 1-Minimal Palms Moist Orientation: 0-Oriented Tacttile Disturbances: 0-None Auditory Disturbances: 0-None Visual Disturbances: 1-Very Mild Sensitivity Headache: 0-None Present CIWA-Ar Total Score: 12 S COWS - Scale Resting Pulse: 0= [place] 80 or Below Sweatin= Chills/Flushing Restless Observation: 0= Sits Still Pupil Size: 1= Pupils >than Normal Bone or Joint Aches: 0= None Runny Nose/ Eye Tearin= None GI Upset > 30mins: 2= Nausea/Diarrhea Tremor Observation of Outstretched Hands: 2= Slight Tremor Visible Yawning Observation: 0= None Anxiety or Irritability: 2=Irritable/Anxious Goose Flesh Skin: 3=Piloerection COWS Score: 11 S Progress Note (SOAP) Subjective: 55 years old male admitted on 03/16/20 for alcohol and opiate withdrawal sx management treating with librium and methadone detox regiments ate breakfast in room tolerated food well feeling tired limited conversation with staff Objective: 03/17/20 10:15 Vital Signs - 24 hr 03/16/20 03/16/20 03/17/20 16:55 19:52 06:51 Temperature 97.6 F 97.6 F 97.5 F L Pulse Rate 86 86 61 Respiratory 18 18 18 Rate Blood Pressure 135/82 135/82 132/88 O2 Sat by Pulse 98 Oximetry (%) 03/17/20 06:52 Temperature Pulse Rate Respiratory Rate Blood Pressure O2 Sat by Pulse 98 Oximetry (%) 03/17/20 10:15 lab pending Assessment: 03/17/20 10:15 alcohol and opiate withdrawal Plan: librium and methadone regiments
[2020-03-17 11:10] LABS: HEMATOCRIT 38.8 % (35.4-49); HEMOGLOBIN 12.9 GM/dL (11.7-16.9); MCHC 33.2 g/dl (32.0-35.9); MEAN CELL VOLUME 93.2 fl (80-96); MEAN PLT VOLUME 7.5 fl (7.5-11.1); PLATELET COUNT 270 K/MM3 (134-434); RBC 4.17 M/mm3 (4.00-5.60); RDW 13.7 % (11.9-15.9); WHITE BLOOD COUNT 6.4 K/mm3 (4.0-10.0)
[2020-03-17 11:17] LABS: POTASSIUM 4.8 mmol/L (3.5-5.1)
[2020-03-17 11:18] LABS: ALBUMIN 3.5 g/dl (3.4-5.0); BILIRUBIN,TOTAL 0.9 mg/dL (0.2-1); BLOOD UREA NITROGEN 11.8 mg/dL (7-18); CALCIUM 8.6 mg/dL (8.5-10.1); TOT PROT 6.6 g/dl (6.4-8.2)
[2020-03-17] MEDS: cloNIDine HCL 0.1 MG TABLET PO PRN (17:50)
[2020-03-17] MEDS: THIAMINE HCL 100 MG TABLET (FP) PO SCH (22:10)
[2020-03-17] MEDS: MELATONIN 5 MG TABLETS PO SCH (22:10)
[2020-03-18] MEDS: chlordiazePOXIDE 5 MG CAPSULE PO SCH ×3 (05:21→22:05)
[2020-03-18] MEDS ORDERED: METHADONE HCL 10 MG TABLET (FOR DETOX USE ONLY) PO ONE (10:00)
[2020-03-18] MEDS: PRENATAL VITAMINS W/ FOLIC ACID TABLET (FP) PO SCH (10:26)
[2020-03-18] MEDS: NICOTINE 7 MG/24 HOURS TOPICAL PATCH TD SCH (10:26)
[2020-03-18] MEDS: cloNIDine HCL 0.1 MG TABLET PO PRN (11:43)
--- NOTE | 2020-03-18 13:03 | PN ---
[facility] CIWA - CIWA Score Nausea/Vomitin-Mild Nausea/No Vomiting Muscle Tremors: 3 Anxiety: 2 Agitation: 1-Slight > Activity Paroxysmal Sweats: 2 Orientation: 0-Oriented Tacttile Disturbances: 0-None Auditory Disturbances: 0-None Visual Disturbances: 0-None Headache: 0-None Present CIWA-Ar Total Score: 9 S COWS - Scale Resting Pulse: 0= [place] 80 or Below Sweatin= Chills/Flushing Restless Observation: 0= Sits Still Pupil Size: 1= Pupils >than Normal Bone or Joint Aches: 1= Mild Discomfort Runny Nose/ Eye Tearin= None GI Upset > 30mins: 2= Nausea/Diarrhea Tremor Observation of Outstretched Hands: 2= Slight Tremor Visible Yawning Observation: 0= None Anxiety or Irritability: 2=Irritable/Anxious Goose Flesh Skin: 0=Smooth Skin COWS Score: 9 S Progress Note (SOAP) Subjective: 55 years old male admitted on 03/16/20 for alcohol and opiate withdrawal sx management treating with librium and methadone detox regiments resting in bed tremor general body aches with muscle cramping Objective: 03/18/20 13:22 Vital Signs - 24 hr 03/17/20 03/17/20 03/18/20 16:29 20:31 06:08 Temperature 97.3 F L 97.5 F L 97.7 F Pulse Rate 63 54 L 61 Respiratory 18 18 18 Rate Blood Pressure 156/83 134/85 147/90 O2 Sat by Pulse 96 98 Oximetry (%) 03/18/20 03/18/20 08:42 12:48 Temperature 97.3 F L 97.3 F L Pulse Rate 58 L 53 L Respiratory 18 18 Rate Blood Pressure 146/90 129/77 O2 Sat by Pulse 99 Oximetry (%) Laboratory Tests 03/16/20 03/17/20 03/17/20 07:45 08:00 08:00 WBC 6.4 RBC 4.17 Hgb 12.9 Hct 38.8 MCV 93.2 MCH 31.0 MCHC 33.2 RDW 13.7 Plt Count 270 MPV 7.5 Sodium Potassium Chloride Carbon Dioxide Anion Gap BUN Creatinine Est GFR (CKD-EPI)AfAm Est GFR (CKD-EPI)NonAf Random Glucose Calcium Total Bilirubin AST ALT Alkaline Phosphatase Total Protein Albumin Syphilis Serology Non-reactive COVID-19 (JOSE) Not detected 03/17/20 08:00 WBC RBC Hgb Hct MCV MCH MCHC RDW Plt Count MPV Sodium 140 Potassium 4.8 Chloride 105 Carbon Dioxide 29 Anion Gap 6 L BUN 11.8 Creatinine 1.0 Est GFR (CKD-EPI)AfAm 99.15 Est GFR (CKD-EPI)NonAf 85.55 Random Glucose 84 Calcium 8.6 Total Bilirubin 0.9 AST 23 ALT 27 Alkaline Phosphatase 79 Total Protein 6.6 Albumin 3.5 Syphilis Serology COVID-19 (JOSE) bp lowered from librium and methadone regiment Assessment: 03/18/20 13:23 alcohol and opiate withdrawal Plan: librium and methadone regiment s
[2020-03-18] MEDS: MELATONIN 5 MG TABLETS PO SCH (22:05)
[2020-03-18] MEDS: THIAMINE HCL 100 MG TABLET (FP) PO SCH (22:05)
[2020-03-19] MEDS ORDERED: chlordiazePOXIDE HCL 10 MG CAPSULE PO PRN
[2020-03-19] MEDS: chlordiazePOXIDE HCL 10 MG CAPSULE PO SCH ×3 (06:19→13:35)
[2020-03-19] MEDS ORDERED: METHADONE HCL 5 MG TABLET (FOR DETOX USE ONLY) ONE (08:58)
[2020-03-19] MEDS ORDERED: METHADONE HCL 10 MG TABLET (FOR DETOX USE ONLY) ONE (08:58)
[2020-03-19] MEDS ORDERED: METHADONE (DETOX) 10 MG, METHADONE (DETOX) 5 MG PO ONE (10:00)
[2020-03-19] MEDS: PRENATAL VITAMINS W/ FOLIC ACID TABLET (FP) PO SCH (10:27)
[2020-03-19] MEDS: NICOTINE 7 MG/24 HOURS TOPICAL PATCH TD SCH (10:27)
--- NOTE | 2020-03-19 13:28 | PN ---
[facility] CIWA - CIWA Score Nausea/Vomitin-Mild Nausea/No Vomiting Muscle Tremors: 2 Anxiety: 2 Agitation: 2 Paroxysmal Sweats: No Perspiration Orientation: 0-Oriented Tacttile Disturbances: 1-Very Mild Itch/Numbness Auditory Disturbances: 0-None Visual Disturbances: 0-None Headache: 2-Mild CIWA-Ar Total Score: 10 BHS COWS - Scale Resting Pulse: 0= [place] 80 or Below Sweatin= No chills or Flushing Restless Observation: 0= Sits Still Pupil Size: 0= Normal to Room Light Bone or Joint Aches: 1= Mild Discomfort Runny Nose/ Eye Tearin= Nasal Congestion GI Upset > 30mins: 1= Stomach Cramp Tremor Observation of Outstretched Hands: 1= Tremor [place], Not Seen Yawning Observation: 0= None Anxiety or Irritability: 2=Irritable/Anxious Goose Flesh Skin: 0=Smooth Skin COWS Score: 6 BHS Progress Note (SOAP) Subjective: alert,irritable,anxious,interrupted sleep,pain in the body and back Objective: 03/19/20 13:26 Vital Signs Temperature 97.3 F L 03/19/20 08:46 Pulse Rate 59 L 03/19/20 08:46 Respiratory Rate 20 03/19/20 08:46 Blood Pressure 143/86 03/19/20 08:46 O2 Sat by Pulse Oximetry (%) 100 03/19/20 05:29 03/19/20 13:27 Laboratory Last Values WBC 6.4 K/mm3 (4.0-10.0) 03/17/20 08:00 RBC 4.17 M/mm3 (4.00-5.60) 03/17/20 08:00 Hgb 12.9 GM/dL (11.7-16.9) 03/17/20 08:00 Hct 38.8 % (35.4-49) 03/17/20 08:00 MCV 93.2 fl (80-96) 03/17/20 08:00 MCH 31.0 pg (25.7-33.7) 03/17/20 08:00 MCHC 33.2 g/dl (32.0-35.9) 03/17/20 08:00 RDW 13.7 % (11.9-15.9) 03/17/20 08:00 Plt Count 270 K/MM3 (134-434) 03/17/20 08:00 MPV 7.5 fl (7.5-11.1) 03/17/20 08:00 Sodium 140 mmol/L (136-145) 03/17/20 08:00 Potassium 4.8 mmol/L (3.5-5.1) 03/17/20 08:00 Chloride 105 mmol/L (98-107) 03/17/20 08:00 Carbon Dioxide 29 mmol/L (21-32) 03/17/20 08:00 Anion Gap 6 MMOL/L (8-16) L 03/17/20 08:00 BUN 11.8 mg/dL (7-18) 03/17/20 08:00 Creatinine 1.0 mg/dL (0.55-1.3) 03/17/20 08:00 Est GFR (CKD-EPI)AfAm 99.15 03/17/20 08:00 Est GFR (CKD-EPI)NonAf 85.55 03/17/20 08:00 Random Glucose 84 mg/dL (74-106) 03/17/20 08:00 Calcium 8.6 mg/dL (8.5-10.1) 03/17/20 08:00 Total Bilirubin 0.9 mg/dL (0.2-1) 03/17/20 08:00 AST 23 U/L (15-37) 03/17/20 08:00 ALT 27 U/L (13-61) 03/17/20 08:00 Alkaline Phosphatase 79 U/L (45-117) 03/17/20 08:00 Total Protein 6.6 g/dl (6.4-8.2) 03/17/20 08:00 Albumin 3.5 g/dl (3.4-5.0) 03/17/20 08:00 Syphilis Serology Non-reactive (NONREACTIVE) 03/17/20 08:00 COVID-19 (JOSE) Not detected (Not Detected) 03/16/20 07:45 Assessment: 03/19/20 13:28 withdrawal symptom Plan: continue detox methadone and librium regimen
[2020-03-19 13:50] VITALS: BP 143/87; PULSE 54; TEMP 97.1
[2020-03-19] MEDS ORDERED: GABAPENTIN 300 MG CAPSULE PO SCH (14:00)
--- NOTE | 2020-03-19 14:21 | PN ---
Bobbi Progress Note Note: patient would like to leave today,stated he is felling better,stable for discharge,has all medications at home, he has his own home and will follow up with outpatient program [facility] and his medical provider at [facility] for medical problem
--- NOTE | 2020-03-19 14:27 | PN ---
[facility] CIWA - CIWA Score Nausea/Vomitin-No Nausea/No Vomiting Muscle Tremors: None Anxiety: 1-Mildly Anxious Agitation: 1-Slight > Activity Paroxysmal Sweats: No Perspiration Orientation: 0-Oriented Tacttile Disturbances: 0-None Auditory Disturbances: 0-None Visual Disturbances: 0-None Headache: 0-None Present CIWA-Ar Total Score: 2 S COWS - Scale Resting Pulse: 0= [place] 80 or Below Sweatin= No chills or Flushing Restless Observation: 0= Sits Still Pupil Size: 0= Normal to Room Light Bone or Joint Aches: 0= None Runny Nose/ Eye Tearin= None GI Upset > 30mins: 0= None Tremor Observation of Outstretched Hands: 0= None Yawning Observation: 0= None Anxiety or Irritability: 1=Feels Anxious/Irritable Goose Flesh Skin: 0=Smooth Skin COWS Score: 1 [facility] Progress Note (SOAP) Subjective: alert,no complaint Objective: 03/19/20 14:26 Last Vital Signs Temp Pulse Resp BP Pulse Ox 97.1 F L 54 L 18 143/87 99 03/19/20 13:05 03/19/20 13:05 03/19/20 13:05 03/19/20 13:05 03/19/20 13:05 Assessment: 03/19/20 14:27 patient is stable for discharge Plan: follow up with after care program as arrangement
--- NOTE | 2020-03-19 14:33 | DS ---
[facility] Detox Discharge Summary Admission Date: 03/16/20 Discharge Date: 03/19/20 - History Present History: Alcohol Dependence, Opioid Dependence Additional Comments: alert,oriented x 3 ambulation on the unit lung clear on auscultation bilaterally stable for discharge today no withdrawal symptom no edema of legs patient declined rehab will go home,follow up with [facility] Out patient program will follow up with Medical provider at [facility] patient has all medications at home total time of discharge 35 minutes left the unit in good and stable condition Pertinent Past History: hypertension hyperlipidemia nicotine dependence - Physical Exam Results Vital Signs: Vital Signs Temperature 97.1 F L 03/19/20 13:05 Pulse Rate 54 L 03/19/20 13:05 Respiratory Rate 18 03/19/20 13:05 Blood Pressure 143/87 03/19/20 13:05 O2 Sat by Pulse Oximetry (%) 99 03/19/20 13:05 Pertinent Admission Physical Exam Findings: withdrawal signs and symptom Laboratory Last Values WBC 6.4 K/mm3 (4.0-10.0) 03/17/20 08:00 RBC 4.17 M/mm3 (4.00-5.60) 03/17/20 08:00 Hgb 12.9 GM/dL (11.7-16.9) 03/17/20 08:00 Hct 38.8 % (35.4-49) 03/17/20 08:00 MCV 93.2 fl (80-96) 03/17/20 08:00 MCH 31.0 pg (25.7-33.7) 03/17/20 08:00 MCHC 33.2 g/dl (32.0-35.9) 03/17/20 08:00 RDW 13.7 % (11.9-15.9) 03/17/20 08:00 Plt Count 270 K/MM3 (134-434) 03/17/20 08:00 MPV 7.5 fl (7.5-11.1) 03/17/20 08:00 Sodium 140 mmol/L (136-145) 03/17/20 08:00 Potassium 4.8 mmol/L (3.5-5.1) 03/17/20 08:00 Chloride 105 mmol/L (98-107) 03/17/20 08:00 Carbon Dioxide 29 mmol/L (21-32) 03/17/20 08:00 Anion Gap 6 MMOL/L (8-16) L 03/17/20 08:00 BUN 11.8 mg/dL (7-18) 03/17/20 08:00 Creatinine 1.0 mg/dL (0.55-1.3) 03/17/20 08:00 Est GFR (CKD-EPI)AfAm 99.15 03/17/20 08:00 Est GFR (CKD-EPI)NonAf 85.55 03/17/20 08:00 Random Glucose 84 mg/dL (74-106) 03/17/20 08:00 Calcium 8.6 mg/dL (8.5-10.1) 03/17/20 08:00 Total Bilirubin 0.9 mg/dL (0.2-1) 03/17/20 08:00 AST 23 U/L (15-37) 03/17/20 08:00 ALT 27 U/L (13-61) 03/17/20 08:00 Alkaline Phosphatase 79 U/L (45-117) 03/17/20 08:00 Total Protein 6.6 g/dl (6.4-8.2) 03/17/20 08:00 Albumin 3.5 g/dl (3.4-5.0) 03/17/20 08:00 Syphilis Serology Non-reactive (NONREACTIVE) 03/17/20 08:00 COVID-19 (JOSE) Not detected (Not Detected) 03/16/20 07:45 Vital Signs Temperature 97.1 F L 03/19/20 13:05 Pulse Rate 54 L 03/19/20 13:05 Respiratory Rate 18 03/19/20 13:05 Blood Pressure 143/87 03/19/20 13:05 O2 Sat by Pulse Oximetry (%) 99 03/19/20 13:05 - Treatment Hospital Course: Detox Protocol Followed, Detoxed Safely, Responded well, Di scharged Condition Good Patient has Accepted a Rehab Referral to: declined - Medication Discharge Medications: Ambulatory Orders Simvastatin 20 mg PO HS 01/19/19 Gabapentin 300 mg PO TID 06/26/19 Aspirin [ASA -] 81 mg PO DAILY 7 Days #14 tab.chew 06/30/19 Losartan Potassium [Cozaar -] 25 mg PO DAILY 7 Days #14 tablet 06/30/19 - Diagnosis (1) Opioid dependence with withdrawal Current Visit: Yes Status: Acute (2) Alcohol dependence with uncomplicated withdrawal Current Visit: Yes Status: Acute (3) HTN (hypertension) Current Visit: Yes Status: Chronic Qualifiers: Hypertension type: essential hypertension Qualified Code(s): I10 - Essential (primary) hypertension (4) Nicotine dependence Current Visit: Yes Status: Chronic Qualifiers: Nicotine product type: cigarettes Substance use status: uncomplicated Qualified Code(s): F17.210 - Nicotine dependence, cigarettes, uncomplicated (5) HLD (hyperlipidemia) Current Visit: No Status: Chronic Qualifiers: Hyperlipidemia type: unspecified Qualified Code(s): E78.5 - Hyperlipidemia, unspecified - AMA Did Patient Leave Against Medical Advice: No
[2020-03-19] MEDS ORDERED: ATORVASTATIN CA 10 MG TABLET (FP) PO SCH (22:00)
[2020-03-20] MEDS ORDERED: chlordiazePOXIDE HCL 10 MG CAPSULE PO ONE (05:00)
[2020-03-20] MEDS ORDERED: METHADONE HCL 10 MG TABLET (FOR DETOX USE ONLY) PO ONE (10:00)
[2020-03-20] MEDS ORDERED: ASPIRIN 81 MG CHEWABLE TABLETS PO SCH (10:00)
[2020-03-20] MEDS ORDERED: LOSARTAN POTASSIUM 25 MG TABLET PO SCH (10:00)
[2020-03-21] MEDS ORDERED: METHADONE HCL 5 MG TABLET (FOR DETOX USE ONLY) PO ONE (06:00)
== END 2020-03-19 14:37 | disposition home or self-care (01) | DRG 773 ==
LOC: YASAS 16:26 → Y3N 19:09
PROVIDERS: ADMIT Allergy & Immunology; ATTEND Allergy & Immunology
PROC: HZ2ZZZZ Detoxification Services for Substance Abuse Treatment (ICD-10-PCS; principal; 2020-03-16)
DX: F11.23 Opioid dependence with withdrawal (principal); F10.230 Alcohol dependence with withdrawal, uncomplicated; F17.210 Nicotine dependence, cigarettes, uncomplicated; I10 Essential (primary) hypertension; E78.5 Hyperlipidemia, unspecified
CPT/HCPCS: 36415; 80053; 85027; 86780; 93005; 93010; J0735; U0003

== ENCOUNTER 2020-07-31 11:44 | Inpatient (IN) | payer OTHER ==
[2020-07-31 12:48] VITALS: BMI 29.7
[2020-07-31] MEDS ORDERED: chlordiazePOXIDE HCL 25 MG CAPSULE PO PRN (15:55)
[2020-07-31] MEDS ORDERED: BISMUTH SUBSALICYLATE 524 MG/30 ML UD PO PRN (15:55)
[2020-07-31] MEDS ORDERED: ONDANSETRON *ODT* 4 MG TABLET SL PRN (15:55)
[2020-07-31] MEDS ORDERED: MAGNESIUM HYDROX 2400MG/30ML ORAL SUSPENSION 30 ML CUP PO PRN (15:55)
[2020-07-31] MEDS ORDERED: MAG HYDROX/AL HYDROX/SIMETH 30 ML UNIT-DOSE CUP PO PRN (15:55)
[2020-07-31] MEDS ORDERED: ACETAMINOPHEN 325 MG TABLET (FP) PO PRN ×2 (15:55)
[2020-07-31] MEDS ORDERED: MAGNESIUM CITRATE 300 ML BOTTLE PO PRN (15:55)
[2020-07-31] MEDS ORDERED: NICOTINE POLACRILEX 2 MG GUM BUC PRN (15:55)
[2020-07-31] MEDS ORDERED: METHADONE HCL 10 MG TABLET (FOR DETOX USE ONLY) PO ONE (15:55)
[2020-07-31] MEDS ORDERED: MENTHOL/PHENOL 1 EACH UD MM PRN (15:55)
[2020-07-31] MEDS ORDERED: IBUPROFEN 400 MG TABLET (FP) PO PRN (15:55)
[2020-07-31] MEDS ORDERED: METHOCARBAMOL 500 MG TABLET PO PRN (15:55)
[2020-07-31] MEDS ORDERED: cloNIDine HCL 0.1 MG TABLET PO PRN (15:55)
[2020-07-31] MEDS: chlordiazePOXIDE HCL 25 MG CAPSULE PO SCH ×2 (17:49→22:33)
[2020-07-31] MEDS: NICOTINE 7 MG/24 HOURS TOPICAL PATCH TD SCH (17:50)
[2020-07-31] MEDS: ASPIRIN 81 MG CHEWABLE TABLETS PO SCH (17:50)
[2020-07-31] MEDS: hydrOXYzine PAMOATE 25 MG CAPSULE (FP) PO SCH ×2 (17:50→22:33)
[2020-07-31] MEDS: MELATONIN 5 MG TABLETS PO SCH (22:33)
[2020-07-31] MEDS: THIAMINE HCL 100 MG TABLET (FP) PO SCH (22:33)
[2020-07-31] MEDS: SIMVASTATIN 20 MG PO SCH (22:35)
[2020-08-01] MEDS: chlordiazePOXIDE HCL 25 MG CAPSULE PO SCH ×4 (06:09→22:35)
[2020-08-01] MEDS: hydrOXYzine PAMOATE 25 MG CAPSULE (FP) PO SCH ×5 (06:10→22:36)
[2020-08-01] MEDS ORDERED: METHADONE HCL 10 MG TABLET (FOR DETOX USE ONLY) ONE (08:36)
[2020-08-01] MEDS ORDERED: METHADONE HCL 5 MG TABLET (FOR DETOX USE ONLY) ONE (08:37)
[2020-08-01] MEDS ORDERED: METHADONE (DETOX) 20 MG, METHADONE (DETOX) 5 MG PO ONE (10:00)
[2020-08-01] MEDS: ASPIRIN 81 MG CHEWABLE TABLETS PO SCH (10:27)
[2020-08-01] MEDS: NICOTINE 7 MG/24 HOURS TOPICAL PATCH TD SCH (10:27)
[2020-08-01] MEDS: LOSARTAN POTASSIUM 25 MG TABLET PO SCH (10:27)
[2020-08-01] MEDS: PRENATAL VITAMINS W/ FOLIC ACID TABLET (FP) PO SCH (10:27)
[2020-08-01 11:12] LABS: POTASSIUM 3.9 mmol/L (3.5-5.1)
[2020-08-01 11:16] LABS: ALBUMIN 3.2 g/dl (3.4-5.0); BLOOD UREA NITROGEN 13.4 mg/dL (7-18); CALCIUM 8.3 mg/dL (8.5-10.1)
[2020-08-01 11:19] LABS: CREATININE 0.8 mg/dL (0.55-1.3)
[2020-08-01 11:21] LABS: BILIRUBIN,TOTAL 0.8 mg/dL (0.2-1); TOT PROT 6.2 g/dl (6.4-8.2)
[2020-08-01 11:24] LABS: HEMATOCRIT 37.8 % (35.4-49); HEMOGLOBIN 12.8 GM/dL (11.7-16.9); MCH 31.5 pg (25.7-33.7); MCHC 33.9 g/dl (32.0-35.9); MEAN CELL VOLUME 92.9 fl (80-96); MEAN PLT VOLUME 7.7 fl (7.5-11.1); PLATELET COUNT 260 K/MM3 (134-434); RBC 4.07 M/mm3 (4.00-5.60); RDW 12.8 % (11.9-15.9)
[2020-08-01] MEDS: SIMVASTATIN 20 MG PO SCH (22:35)
[2020-08-01] MEDS: MELATONIN 5 MG TABLETS PO SCH (22:36)
[2020-08-01] MEDS: THIAMINE HCL 100 MG TABLET (FP) PO SCH (22:36)
[2020-08-02] MEDS: hydrOXYzine PAMOATE 25 MG CAPSULE (FP) PO SCH ×5 (05:47→22:12)
[2020-08-02] MEDS: chlordiazePOXIDE HCL 25 MG CAPSULE PO SCH ×4 (05:47→22:14)
[2020-08-02] MEDS ORDERED: METHADONE HCL 10 MG TABLET (FOR DETOX USE ONLY) PO ONE (10:00)
[2020-08-02] MEDS: LOSARTAN POTASSIUM 25 MG TABLET PO SCH (10:22)
[2020-08-02] MEDS: PRENATAL VITAMINS W/ FOLIC ACID TABLET (FP) PO SCH (10:22)
[2020-08-02] MEDS: ASPIRIN 81 MG CHEWABLE TABLETS PO SCH (10:22)
[2020-08-02] MEDS: NICOTINE 7 MG/24 HOURS TOPICAL PATCH TD SCH (10:23)
[2020-08-02] MEDS: MELATONIN 5 MG TABLETS PO SCH (22:13)
[2020-08-02] MEDS: THIAMINE HCL 100 MG TABLET (FP) PO SCH (22:13)
[2020-08-02] MEDS: SIMVASTATIN 20 MG PO SCH (22:13)
[2020-08-03] MEDS ORDERED: chlordiazePOXIDE HCL 10 MG CAPSULE PO PRN
[2020-08-03] MEDS: chlordiazePOXIDE HCL 10 MG CAPSULE PO SCH ×4 (06:13→22:11)
[2020-08-03] MEDS: hydrOXYzine PAMOATE 25 MG CAPSULE (FP) PO SCH ×5 (06:13→22:11)
[2020-08-03] MEDS ORDERED: METHADONE HCL 10 MG TABLET (FOR DETOX USE ONLY) ONE (08:23)
[2020-08-03] MEDS ORDERED: METHADONE HCL 5 MG TABLET (FOR DETOX USE ONLY) ONE (08:24)
[2020-08-03] MEDS ORDERED: METHADONE (DETOX) 10 MG, METHADONE (DETOX) 5 MG PO ONE (10:00)
[2020-08-03] MEDS: NICOTINE 7 MG/24 HOURS TOPICAL PATCH TD SCH (10:24)
[2020-08-03] MEDS: ASPIRIN 81 MG CHEWABLE TABLETS PO SCH (12:20)
[2020-08-03] MEDS: PRENATAL VITAMINS W/ FOLIC ACID TABLET (FP) PO SCH (12:20)
[2020-08-03] MEDS: LOSARTAN POTASSIUM 25 MG TABLET PO SCH (12:21)
[2020-08-03] MEDS: THIAMINE HCL 100 MG TABLET (FP) PO SCH (22:11)
[2020-08-03] MEDS: MELATONIN 5 MG TABLETS PO SCH (22:11)
[2020-08-03] MEDS: SIMVASTATIN 20 MG PO SCH (22:11)
[2020-08-04] MEDS ORDERED: chlordiazePOXIDE HCL 10 MG CAPSULE PO SCH (05:00)
[2020-08-04] MEDS: hydrOXYzine PAMOATE 25 MG CAPSULE (FP) PO SCH ×2 (05:41→10:10)
[2020-08-04 07:04] VITALS: BP 119/72; PULSE 74; TEMP 96.9
[2020-08-04] MEDS ORDERED: METHADONE HCL 10 MG TABLET (FOR DETOX USE ONLY) PO ONE (10:00)
[2020-08-04] MEDS: PRENATAL VITAMINS W/ FOLIC ACID TABLET (FP) PO SCH (10:10)
[2020-08-04] MEDS: NICOTINE 7 MG/24 HOURS TOPICAL PATCH TD SCH (10:10)
[2020-08-04] MEDS: ASPIRIN 81 MG CHEWABLE TABLETS PO SCH (10:10)
[2020-08-04] MEDS: LOSARTAN POTASSIUM 25 MG TABLET PO SCH (10:10)
[2020-08-05] MEDS ORDERED: chlordiazePOXIDE HCL 10 MG CAPSULE PO ONE (05:00)
[2020-08-05] MEDS ORDERED: METHADONE HCL 5 MG TABLET (FOR DETOX USE ONLY) PO ONE (06:00)
== END 2020-08-04 13:05 | disposition home or self-care (01) | DRG 773 ==
LOC: YASAS 11:44 → Y3N 15:27
PROVIDERS: ADMIT Allergy & Immunology; ATTEND Allergy & Immunology
PROC: HZ2ZZZZ Detoxification Services for Substance Abuse Treatment (ICD-10-PCS; principal; 2020-07-31)
DX: F11.23 Opioid dependence with withdrawal (principal); F10.230 Alcohol dependence with withdrawal, uncomplicated; F17.213 Nicotine dependence, cigarettes, with withdrawal; F19.24 Other psychoactive substance dependence with psychoactive substance-induced mood disorder; I10 Essential (primary) hypertension; E78.5 Hyperlipidemia, unspecified; M25.532 Pain in left wrist
CPT/HCPCS: 36415; 80053; 85027; 86780; C9803; U0003

== ENCOUNTER 2020-11-04 16:42 | Inpatient (IN) | payer OTHER ==
[2020-11-04 17:15] VITALS: BMI 28.1
[2020-11-04] MEDS ORDERED: ACETAMINOPHEN 325 MG TABLET (FP) PO PRN ×2 (18:19)
[2020-11-04] MEDS ORDERED: MAGNESIUM HYDROX 2400MG/30ML ORAL SUSPENSION 30 ML CUP PO PRN (18:19)
[2020-11-04] MEDS ORDERED: MENTHOL/PHENOL 1 EACH UD MM PRN (18:19)
[2020-11-04] MEDS ORDERED: MAG HYDROX/AL HYDROX/SIMETH 30 ML UNIT-DOSE CUP PO PRN (18:19)
[2020-11-04] MEDS ORDERED: IBUPROFEN 400 MG TABLET (FP) PO PRN (18:19)
[2020-11-04] MEDS ORDERED: BISMUTH SUBSALICYLATE 524 MG/30 ML UD PO PRN (18:19)
[2020-11-04] MEDS ORDERED: MAGNESIUM CITRATE 300 ML BOTTLE PO PRN (18:19)
[2020-11-04] MEDS ORDERED: METHOCARBAMOL 500 MG TABLET PO PRN (18:19)
[2020-11-04] MEDS ORDERED: NICOTINE POLACRILEX 2 MG GUM BUC PRN (18:19)
[2020-11-04] MEDS ORDERED: ONDANSETRON *ODT* 4 MG TABLET SL PRN (18:19)
[2020-11-04] MEDS ORDERED: diazePAM 5 MG TABLET PO PRN (18:21)
[2020-11-04] MEDS ORDERED: cloNIDine HCL 0.1 MG TABLET PO PRN (18:21)
[2020-11-04] MEDS ORDERED: METHADONE HCL 10 MG TABLET (FOR DETOX USE ONLY) PO ONE (19:30)
[2020-11-04] MEDS: THIAMINE HCL 100 MG TABLET (FP) PO SCH (22:33)
[2020-11-04] MEDS: MELATONIN 5 MG TABLETS PO SCH (22:33)
[2020-11-04] MEDS: ATORVASTATIN CA 10 MG TABLET (FP) PO SCH (22:33)
[2020-11-04] MEDS ORDERED: diazePAM 5 MG TABLET PO SCH (23:00)
[2020-11-04] MEDS: diazePAM 5 MG TABLET PO SCH (23:21)
[2020-11-05] MEDS: diazePAM 5 MG TABLET PO SCH ×4 (05:00→22:42)
[2020-11-05] MEDS ORDERED: METHADONE HCL 5 MG TABLET (FOR DETOX USE ONLY) ONE (09:57)
[2020-11-05] MEDS ORDERED: METHADONE HCL 10 MG TABLET (FOR DETOX USE ONLY) ONE (09:57)
[2020-11-05] MEDS ORDERED: METHADONE HCL 10 MG TABLET (FOR DETOX USE ONLY) PO ONE (10:00)
[2020-11-05] MEDS ORDERED: METHADONE (DETOX) 10 MG, METHADONE (DETOX) 5 MG PO ONE (10:00)
[2020-11-05] MEDS: LOSARTAN POTASSIUM 25 MG TABLET PO SCH (10:33)
[2020-11-05] MEDS: PRENATAL VITAMINS W/ FOLIC ACID TABLET (FP) PO SCH (10:35)
[2020-11-05] MEDS: ASPIRIN 81 MG CHEWABLE TABLETS PO SCH (10:35)
[2020-11-05 10:51] LABS: POTASSIUM 4.4 mmol/L (3.5-5.1)
[2020-11-05 10:52] LABS: HEMATOCRIT 38.2 % (35.4-49); HEMOGLOBIN 13.1 GM/dL (11.7-16.9); MCH 31.4 pg (25.7-33.7); MCHC 34.3 g/dl (32.0-35.9); MEAN CELL VOLUME 91.8 fl (80-96); MEAN PLT VOLUME 7.6 fl (7.5-11.1); PLATELET COUNT 280 K/MM3 (134-434); RBC 4.16 M/mm3 (4.00-5.60); RDW 13.4 % (11.9-15.9); WHITE BLOOD COUNT 5.8 K/mm3 (4.0-10.0)
[2020-11-05 10:54] LABS: ALBUMIN 3.4 g/dl (3.4-5.0); BLOOD UREA NITROGEN 13.4 mg/dL (7-18); CALCIUM 8.2 mg/dL (8.5-10.1)
[2020-11-05 10:57] LABS: CREATININE 0.9 mg/dL (0.55-1.3)
[2020-11-05 10:59] LABS: BILIRUBIN,TOTAL 1.1 mg/dL (0.2-1); TOT PROT 6.3 g/dl (6.4-8.2)
[2020-11-05] MEDS: ATORVASTATIN CA 10 MG TABLET (FP) PO SCH (22:42)
[2020-11-05] MEDS: THIAMINE HCL 100 MG TABLET (FP) PO SCH (22:42)
[2020-11-05] MEDS: MELATONIN 5 MG TABLETS PO SCH (22:43)
[2020-11-06] MEDS: diazePAM 5 MG TABLET PO SCH ×3 (05:38→22:23)
[2020-11-06] MEDS ORDERED: METHADONE HCL 10 MG TABLET (FOR DETOX USE ONLY) PO ONE (10:00)
[2020-11-06] MEDS: PRENATAL VITAMINS W/ FOLIC ACID TABLET (FP) PO SCH (10:22)
[2020-11-06] MEDS: LOSARTAN POTASSIUM 25 MG TABLET PO SCH (10:24)
[2020-11-06] MEDS: ASPIRIN 81 MG CHEWABLE TABLETS PO SCH (10:24)
[2020-11-06] MEDS: THIAMINE HCL 100 MG TABLET (FP) PO SCH (22:23)
[2020-11-06] MEDS: ATORVASTATIN CA 10 MG TABLET (FP) PO SCH (22:23)
[2020-11-06] MEDS: MELATONIN 5 MG TABLETS PO SCH (22:24)
[2020-11-07] MEDS ORDERED: diazePAM 5 MG TABLET PO SCH (06:00)
[2020-11-07] MEDS ORDERED: METHADONE HCL 5 MG TABLET (FOR DETOX USE ONLY) PO ONE (10:00)
[2020-11-07] MEDS ORDERED: METHADONE HCL 10 MG TABLET (FOR DETOX USE ONLY) PO ONE (10:00)
[2020-11-07] MEDS: LOSARTAN POTASSIUM 25 MG TABLET PO SCH (10:34)
[2020-11-07] MEDS: ASPIRIN 81 MG CHEWABLE TABLETS PO SCH (10:34)
[2020-11-07] MEDS: PRENATAL VITAMINS W/ FOLIC ACID TABLET (FP) PO SCH (10:35)
[2020-11-07 13:01] VITALS: BP 120/79; PULSE 89; TEMP 98.1
[2020-11-08 05:11] LABS: SARS-CoV-2 NAA Not Detected (Not Detected)
[2020-11-08] MEDS ORDERED: diazePAM 5 MG TABLET PO ONE (06:00)
== END 2020-11-07 14:16 | disposition home or self-care (01) | DRG 773 ==
LOC: YASAS 16:42 → Y6N 18:40
PROVIDERS: ADMIT Allergy & Immunology; ATTEND Allergy & Immunology
PROC: HZ2ZZZZ Detoxification Services for Substance Abuse Treatment (ICD-10-PCS; principal; 2020-11-04)
DX: F11.23 Opioid dependence with withdrawal (principal); F10.230 Alcohol dependence with withdrawal, uncomplicated; F17.210 Nicotine dependence, cigarettes, uncomplicated; F19.282 Other psychoactive substance dependence with psychoactive substance-induced sleep disorder; I10 Essential (primary) hypertension; E78.00 Pure hypercholesterolemia, unspecified; E78.5 Hyperlipidemia, unspecified
CPT/HCPCS: 36415; 80053; 85027; 86780; C9803; U0003; U0005

== ENCOUNTER 2021-01-28 20:23 | Inpatient (IN) | payer OTHER ==
[2021-01-28] MEDS ORDERED: ONDANSETRON *ODT* 4 MG TABLET SL PRN (22:25)
[2021-01-28] MEDS ORDERED: BISMUTH SUBSALICYLATE 524 MG/30 ML PO PRN (22:25)
[2021-01-28] MEDS ORDERED: MAGNESIUM HYDROX 2400MG/30ML ORAL SUSPENSION 30 ML CUP PO PRN (22:25)
[2021-01-28] MEDS ORDERED: MAGNESIUM CITRATE 300 ML BOTTLE PO PRN (22:25)
[2021-01-28] MEDS ORDERED: IBUPROFEN 400 MG TABLET (FP) PO PRN (22:25)
[2021-01-28] MEDS ORDERED: MENTHOL/PHENOL 1 EACH UD MM PRN (22:25)
[2021-01-28] MEDS ORDERED: METHOCARBAMOL 500 MG TABLET PO PRN (22:25)
[2021-01-28] MEDS ORDERED: cloNIDine HCL 0.1 MG TABLET PO PRN (22:25)
[2021-01-28] MEDS ORDERED: ACETAMINOPHEN 325 MG TABLET (FP) PO PRN ×2 (22:25)
[2021-01-28] MEDS ORDERED: MAG HYDROX/AL HYDROX/SIMETH 30 ML UNIT-DOSE CUP PO PRN (22:25)
[2021-01-28] MEDS ORDERED: diazePAM 5 MG TABLET PO PRN (22:25)
[2021-01-28] MEDS ORDERED: NICOTINE POLACRILEX 2 MG GUM BUC PRN (22:25)
[2021-01-28 23:03] VITALS: BMI 28.8
[2021-01-28] MEDS ORDERED: METHADONE HCL 10 MG TABLET (FOR DETOX USE ONLY) PO ONE (23:45)
[2021-01-29] MEDS: diazePAM 5 MG TABLET PO SCH ×5 (00:57→22:27)
[2021-01-29] MEDS ORDERED: METHADONE HCL 5 MG TABLET (FOR DETOX USE ONLY) ONE (09:36)
[2021-01-29] MEDS ORDERED: METHADONE HCL 10 MG TABLET (FOR DETOX USE ONLY) ONE (09:36)
[2021-01-29] MEDS ORDERED: METHADONE (DETOX) 20 MG, METHADONE (DETOX) 5 MG PO ONE (10:00)
[2021-01-29] MEDS: LOSARTAN POTASSIUM 25 MG TABLET PO SCH (10:27)
[2021-01-29] MEDS: PRENATAL VITAMINS W/ FOLIC ACID TABLET (FP) PO SCH (10:27)
[2021-01-29] MEDS: ASPIRIN 81 MG CHEWABLE TABLETS PO SCH (10:28)
[2021-01-29] MEDS: NICOTINE 14 MG/24 HOURS TOPICAL PATCH TD SCH (10:29)
[2021-01-29 11:09] LABS: HEMATOCRIT 39.2 % (35.4-49); HEMOGLOBIN 12.9 GM/dL (11.7-16.9); MCH 30.4 pg (25.7-33.7); MEAN CELL VOLUME 92.3 fl (80-96); MEAN PLT VOLUME 7.5 fl (7.5-11.1); PLATELET COUNT 265 10^3/uL (134-434); RBC 4.25 M/mm3 (4.00-5.60); RDW 13.2 % (11.9-15.9); WHITE BLOOD COUNT 5.1 K/mm3 (4.0-10.0)
[2021-01-29 11:22] LABS: ALBUMIN 3.4 g/dl (3.4-5.0); BLOOD UREA NITROGEN 14.3 mg/dL (7-18); CALCIUM 8.6 mg/dL (8.5-10.1)
[2021-01-29 11:25] LABS: CREATININE 0.8 mg/dL (0.55-1.3)
[2021-01-29 11:26] LABS: TOT PROT 6.4 g/dl (6.4-8.2)
[2021-01-29 11:43] LABS: BILIRUBIN,TOTAL 0.4 mg/dL (0.2-1)
[2021-01-29] MEDS: THIAMINE HCL 100 MG TABLET (FP) PO SCH (22:25)
[2021-01-29] MEDS: MELATONIN 5 MG TABLETS PO SCH (22:25)
[2021-01-29] MEDS: ATORVASTATIN CA 10 MG TABLET (FP) PO SCH (22:30)
[2021-01-30] MEDS: diazePAM 5 MG TABLET PO SCH ×3 (06:03→22:50)
[2021-01-30] MEDS ORDERED: METHADONE HCL 10 MG TABLET (FOR DETOX USE ONLY) PO ONE (10:00)
[2021-01-30] MEDS: PRENATAL VITAMINS W/ FOLIC ACID TABLET (FP) PO SCH (10:31)
[2021-01-30] MEDS: ASPIRIN 81 MG CHEWABLE TABLETS PO SCH (10:32)
[2021-01-30] MEDS: LOSARTAN POTASSIUM 25 MG TABLET PO SCH (10:32)
[2021-01-30] MEDS: NICOTINE 14 MG/24 HOURS TOPICAL PATCH TD SCH (10:32)
[2021-01-30] MEDS: MELATONIN 5 MG TABLETS PO SCH (22:50)
[2021-01-30] MEDS: ATORVASTATIN CA 10 MG TABLET (FP) PO SCH (22:50)
[2021-01-30] MEDS: THIAMINE HCL 100 MG TABLET (FP) PO SCH (22:50)
[2021-01-31] MEDS: diazePAM 5 MG TABLET PO SCH ×2 (07:29→18:14)
[2021-01-31] MEDS ORDERED: METHADONE HCL 5 MG TABLET (FOR DETOX USE ONLY) ONE (09:23)
[2021-01-31] MEDS ORDERED: METHADONE HCL 10 MG TABLET (FOR DETOX USE ONLY) ONE (09:24)
[2021-01-31] MEDS ORDERED: METHADONE (DETOX) 10 MG, METHADONE (DETOX) 5 MG PO ONE (10:00)
[2021-01-31] MEDS: PRENATAL VITAMINS W/ FOLIC ACID TABLET (FP) PO SCH (10:56)
[2021-01-31] MEDS: NICOTINE 14 MG/24 HOURS TOPICAL PATCH TD SCH (10:56)
[2021-01-31] MEDS: LOSARTAN POTASSIUM 25 MG TABLET PO SCH (10:56)
[2021-01-31] MEDS: ASPIRIN 81 MG CHEWABLE TABLETS PO SCH (10:56)
[2021-01-31] MEDS: ATORVASTATIN CA 10 MG TABLET (FP) PO SCH (22:45)
[2021-01-31] MEDS: MELATONIN 5 MG TABLETS PO SCH (22:45)
[2021-01-31] MEDS: THIAMINE HCL 100 MG TABLET (FP) PO SCH (22:45)
[2021-02-01] MEDS ORDERED: diazePAM 5 MG TABLET PO ONE (06:00)
[2021-02-01] MEDS ORDERED: METHADONE HCL 10 MG TABLET (FOR DETOX USE ONLY) PO ONE (10:00)
[2021-02-01] MEDS: LOSARTAN POTASSIUM 25 MG TABLET PO SCH (10:14)
[2021-02-01] MEDS: NICOTINE 14 MG/24 HOURS TOPICAL PATCH TD SCH (10:14)
[2021-02-01] MEDS: PRENATAL VITAMINS W/ FOLIC ACID TABLET (FP) PO SCH (10:14)
[2021-02-01] MEDS: ASPIRIN 81 MG CHEWABLE TABLETS PO SCH (10:14)
[2021-02-01] MEDS: THIAMINE HCL 100 MG TABLET (FP) PO SCH (22:17)
[2021-02-01] MEDS: ATORVASTATIN CA 10 MG TABLET (FP) PO SCH (22:17)
[2021-02-01] MEDS: MELATONIN 5 MG TABLETS PO SCH (22:17)
[2021-02-02] MEDS ORDERED: METHADONE HCL 5 MG TABLET (FOR DETOX USE ONLY) PO ONE (06:00)
[2021-02-02] MEDS: ASPIRIN 81 MG CHEWABLE TABLETS PO SCH (09:11)
[2021-02-02] MEDS: LOSARTAN POTASSIUM 25 MG TABLET PO SCH (09:11)
[2021-02-02] MEDS: PRENATAL VITAMINS W/ FOLIC ACID TABLET (FP) PO SCH (09:11)
[2021-02-02] MEDS: NICOTINE 14 MG/24 HOURS TOPICAL PATCH TD SCH (09:12)
[2021-02-02 09:17] VITALS: BP 155/93; PULSE 64; TEMP 97.7
== END 2021-02-02 10:07 | disposition home or self-care (01) | DRG 773 ==
LOC: YASAS 20:23 → Y6N 22:50
PROVIDERS: ADMIT Allergy & Immunology; ATTEND Allergy & Immunology
PROC: HZ2ZZZZ Detoxification Services for Substance Abuse Treatment (ICD-10-PCS; principal; 2021-01-28)
DX: F11.23 Opioid dependence with withdrawal (principal); F10.230 Alcohol dependence with withdrawal, uncomplicated; F17.210 Nicotine dependence, cigarettes, uncomplicated; I10 Essential (primary) hypertension; E78.5 Hyperlipidemia, unspecified
CPT/HCPCS: 36415; 80053; 85027; 86780; C9803; U0003; U0005

== ENCOUNTER 2021-05-12 13:23 | Inpatient (IN) | payer OTHER ==
[2021-05-12 14:53] VITALS: BMI 28.8
[2021-05-12] MEDS ORDERED: ACETAMINOPHEN 325 MG TABLET (FP) PO PRN ×2 (15:18)
[2021-05-12] MEDS ORDERED: MAG HYDROX/AL HYDROX/SIMETH 30 ML UNIT-DOSE CUP PO PRN (15:18)
[2021-05-12] MEDS ORDERED: IBUPROFEN 400 MG TABLET (FP) PO PRN (15:18)
[2021-05-12] MEDS ORDERED: MENTHOL/PHENOL 1 EACH UD MM PRN (15:18)
[2021-05-12] MEDS ORDERED: MAGNESIUM HYDROX 2400MG/30ML ORAL SUSPENSION 30 ML CUP PO PRN (15:18)
[2021-05-12] MEDS ORDERED: NICOTINE POLACRILEX 4 MG GUM BUC PRN (15:18)
[2021-05-12] MEDS ORDERED: MAGNESIUM CITRATE 300 ML BOTTLE PO PRN (15:18)
[2021-05-12] MEDS ORDERED: BISMUTH SUBSALICYLATE 524 MG/30 ML PO PRN (15:18)
[2021-05-12] MEDS ORDERED: ONDANSETRON *ODT* 4 MG TABLET SL PRN (15:18)
[2021-05-12] MEDS ORDERED: METHOCARBAMOL 500 MG TABLET PO PRN (15:18)
[2021-05-12] MEDS ORDERED: methaDONE HCL 10 MG TABLET (FOR DETOX USE ONLY) PO ONE (15:27)
[2021-05-12] MEDS: hydrOXYzine PAMOATE 25 MG CAPSULE (FP) PO SCH ×2 (17:23→22:12)
[2021-05-12] MEDS: diazePAM 5 MG TABLET PO SCH ×2 (17:23→22:20)
[2021-05-12] MEDS: cloNIDine HCL 0.1 MG TABLET PO PRN ×2 (17:29→22:12)
[2021-05-12] MEDS: PRENATAL VITAMINS W/ FOLIC ACID TABLET (FP) PO SCH (17:46)
[2021-05-12 18:04] LABS: HEMATOCRIT 38.9 % (35.4-49); HEMOGLOBIN 13.5 GM/dL (11.7-16.9); MCH 31.6 pg (25.7-33.7); MCHC 34.6 g/dl (32.0-35.9); MEAN CELL VOLUME 91.4 fl (80-96); MEAN PLT VOLUME 7.1 fl (7.5-11.1); PLATELET COUNT 306 10^3/uL (134-434); RBC 4.26 M/mm3 (4.00-5.60); RDW 13.3 % (11.9-15.9); WHITE BLOOD COUNT 5.2 K/mm3 (4.0-10.0)
[2021-05-12 18:07] LABS: ALBUMIN 3.7 g/dl (3.4-5.0); CALCIUM 8.5 mg/dL (8.5-10.1)
[2021-05-12 18:08] LABS: BLOOD UREA NITROGEN 13.7 mg/dL (7-18)
[2021-05-12 18:11] LABS: CREATININE 0.9 mg/dL (0.55-1.3)
[2021-05-12 18:12] LABS: BILIRUBIN,TOTAL 0.3 mg/dL (0.2-1); TOT PROT 7.7 g/dl (6.4-8.2)
[2021-05-12] MEDS: THIAMINE HCL 100 MG TABLET (FP) PO SCH (22:12)
[2021-05-12] MEDS: MELATONIN 5 MG TABLETS PO SCH (22:12)
[2021-05-13] MEDS: diazePAM 5 MG TABLET PO SCH ×4 (05:57→22:18)
[2021-05-13] MEDS: hydrOXYzine PAMOATE 25 MG CAPSULE (FP) PO SCH ×5 (05:57→22:18)
[2021-05-13] MEDS ORDERED: methaDONE HCL 10 MG TABLET (FOR DETOX USE ONLY) ONE (09:06)
[2021-05-13] MEDS: PRENATAL VITAMINS W/ FOLIC ACID TABLET (FP) PO SCH (10:22)
[2021-05-13] MEDS: MELATONIN 5 MG TABLETS PO SCH (22:18)
[2021-05-13] MEDS: THIAMINE HCL 100 MG TABLET (FP) PO SCH (22:18)
[2021-05-14] MEDS: diazePAM 5 MG TABLET PO SCH ×3 (05:33→21:12)
[2021-05-14] MEDS: hydrOXYzine PAMOATE 25 MG CAPSULE (FP) PO SCH ×3 (05:33→14:50)
[2021-05-14] MEDS ORDERED: methaDONE HCL 10 MG TABLET (FOR DETOX USE ONLY) PO ONE (10:00)
[2021-05-14] MEDS: PRENATAL VITAMINS W/ FOLIC ACID TABLET (FP) PO SCH (10:33)
[2021-05-14] MEDS ORDERED: diazePAM 5 MG TABLET PO PRN (15:30)
[2021-05-14] MEDS: hydrOXYzine PAMOATE 25 MG CAPSULE (FP) PO PRN (21:12)
[2021-05-14] MEDS: MELATONIN 5 MG TABLETS PO SCH (21:12)
[2021-05-14] MEDS: THIAMINE HCL 100 MG TABLET (FP) PO SCH (21:12)
[2021-05-14] MEDS: cloNIDine HCL 0.1 MG TABLET PO PRN (21:12)
[2021-05-15] MEDS: diazePAM 5 MG TABLET PO SCH ×2 (06:38→20:19)
[2021-05-15] MEDS ORDERED: methaDONE HCL 10 MG TABLET (FOR DETOX USE ONLY) ONE (08:37)
[2021-05-15] MEDS: PRENATAL VITAMINS W/ FOLIC ACID TABLET (FP) PO SCH (10:25)
[2021-05-15] MEDS: hydrOXYzine PAMOATE 25 MG CAPSULE (FP) PO PRN (21:19)
[2021-05-15] MEDS: MELATONIN 5 MG TABLETS PO SCH (22:39)
[2021-05-15] MEDS: THIAMINE HCL 100 MG TABLET (FP) PO SCH (22:39)
[2021-05-16] MEDS ORDERED: diazePAM 5 MG TABLET PO ONE (06:00)
[2021-05-16 09:44] VITALS: BP 150/92; PULSE 58; TEMP 98.4
[2021-05-16] MEDS ORDERED: methaDONE HCL 10 MG TABLET (FOR DETOX USE ONLY) PO ONE (10:00)
[2021-05-16] MEDS: PRENATAL VITAMINS W/ FOLIC ACID TABLET (FP) PO SCH (11:05)
== END 2021-05-16 13:09 | disposition home or self-care (01) | DRG 773 ==
LOC: YASAS 13:23 → Y3N 16:13
PROVIDERS: ADMIT Allergy & Immunology; ATTEND Allergy & Immunology
PROC: HZ2ZZZZ Detoxification Services for Substance Abuse Treatment (ICD-10-PCS; principal; 2021-05-12)
DX: F11.23 Opioid dependence with withdrawal (principal); F10.230 Alcohol dependence with withdrawal, uncomplicated; F17.210 Nicotine dependence, cigarettes, uncomplicated; I10 Essential (primary) hypertension; E78.00 Pure hypercholesterolemia, unspecified
CPT/HCPCS: 36415; 80053; 82947; 85027; 86780; C9803; J0735; U0003; U0005

== ENCOUNTER 2021-07-17 14:57 | Inpatient (IN) | payer OTHER ==
[2021-07-17] MEDS ORDERED: ONDANSETRON *ODT* 4 MG TABLET SL PRN (17:27)
[2021-07-17] MEDS ORDERED: NICOTINE 10 MG CARTRIDGE (INHALER) IH PRN (17:27)
[2021-07-17] MEDS ORDERED: ACETAMINOPHEN 325 MG TABLET (FP) PO PRN ×2 (17:27)
[2021-07-17] MEDS ORDERED: MAG HYDROX/AL HYDROX/SIMETH 30 ML UNIT-DOSE CUP PO PRN (17:27)
[2021-07-17] MEDS ORDERED: IBUPROFEN 400 MG TABLET (FP) PO PRN (17:27)
[2021-07-17] MEDS ORDERED: BISMUTH SUBSALICYLATE 524 MG/30 ML PO PRN (17:27)
[2021-07-17] MEDS ORDERED: MAGNESIUM HYDROX 2400MG/30ML ORAL SUSPENSION 30 ML CUP PO PRN (17:27)
[2021-07-17] MEDS ORDERED: MENTHOL/PHENOL 1 EACH UD MM PRN (17:27)
[2021-07-17] MEDS ORDERED: MAGNESIUM CITRATE 300 ML BOTTLE PO PRN (17:27)
[2021-07-17 18:14] VITALS: BMI 29.0
[2021-07-17] MEDS: hydrOXYzine PAMOATE 25 MG CAPSULE (FP) PO SCH ×2 (20:36→22:58)
[2021-07-17] MEDS: PRENATAL VITAMINS W/ FOLIC ACID TABLET (FP) PO SCH (20:36)
[2021-07-17] MEDS: NICOTINE 7 MG/24 HOURS TOPICAL PATCH TD SCH (20:37)
[2021-07-17] MEDS: ATORVASTATIN CA 10 MG TABLET (FP) PO SCH (22:58)
[2021-07-17] MEDS: THIAMINE HCL 100 MG TABLET (FP) PO SCH (22:58)
[2021-07-17] MEDS: MELATONIN 5 MG TABLETS PO SCH (22:58)
[2021-07-18] MEDS: hydrOXYzine PAMOATE 25 MG CAPSULE (FP) PO SCH ×4 (07:19→18:20)
[2021-07-18] MEDS: ASPIRIN 81 MG CHEWABLE TABLETS PO SCH (11:12)
[2021-07-18] MEDS: METHOCARBAMOL 500 MG TABLET PO PRN (11:12)
[2021-07-18] MEDS: PRENATAL VITAMINS W/ FOLIC ACID TABLET (FP) PO SCH (11:12)
[2021-07-18] MEDS: NICOTINE 7 MG/24 HOURS TOPICAL PATCH TD SCH (11:13)
[2021-07-18] MEDS ORDERED: cloNIDine HCL 0.1 MG TABLET PO PRN (12:00)
[2021-07-18] MEDS ORDERED: chlordiazePOXIDE HCL 25 MG CAPSULE PO PRN (12:02)
[2021-07-18] MEDS ORDERED: methaDONE HCL 10 MG TABLET (FOR DETOX USE ONLY) PO ONE (12:30)
[2021-07-18] MEDS: LOSARTAN POTASSIUM 50 MG TABLET PO SCH (13:29)
[2021-07-18] MEDS: chlordiazePOXIDE HCL 25 MG CAPSULE PO SCH ×2 (13:31→19:01)
[2021-07-19] MEDS: ATORVASTATIN CA 10 MG TABLET (FP) PO SCH ×2 (00:08→23:35)
[2021-07-19] MEDS: MELATONIN 5 MG TABLETS PO SCH ×2 (00:08→23:35)
[2021-07-19] MEDS: chlordiazePOXIDE HCL 25 MG CAPSULE PO SCH (00:09)
[2021-07-19] MEDS: THIAMINE HCL 100 MG TABLET (FP) PO SCH ×2 (00:09→23:35)
[2021-07-19] MEDS: hydrOXYzine PAMOATE 25 MG CAPSULE (FP) PO SCH ×6 (00:09→23:35)
[2021-07-19] MEDS: chlordiazePOXIDE HCL 10 MG CAPSULE PO SCH ×4 (06:00→23:00)
[2021-07-19] MEDS ORDERED: methaDONE HCL 10 MG TABLET (FOR DETOX USE ONLY) ONE (09:37)
[2021-07-19 10:01] LABS: HEMOGLOBIN 13.2 GM/dL (11.7-16.9); MCH 32.1 pg (25.7-33.7); MCHC 34.9 g/dl (32.0-35.9); MEAN CELL VOLUME 91.9 fl (80-96); MEAN PLT VOLUME 7.5 fl (7.5-11.1); PLATELET COUNT 250 10^3/uL (134-434); RBC 4.13 M/mm3 (4.00-5.60); RDW 12.9 % (11.9-15.9)
[2021-07-19 10:02] LABS: ALBUMIN 3.2 g/dl (3.4-5.0); BLOOD UREA NITROGEN 10.2 mg/dL (7-18); CALCIUM 8.6 mg/dL (8.5-10.1)
[2021-07-19 10:06] LABS: CREATININE 0.9 mg/dL (0.55-1.3)
[2021-07-19 10:08] LABS: BILIRUBIN,TOTAL 0.5 mg/dL (0.2-1); TOT PROT 6.6 g/dl (6.4-8.2)
[2021-07-19] MEDS: LOSARTAN POTASSIUM 50 MG TABLET PO SCH (10:54)
[2021-07-19] MEDS: PRENATAL VITAMINS W/ FOLIC ACID TABLET (FP) PO SCH (10:56)
[2021-07-19] MEDS: ASPIRIN 81 MG CHEWABLE TABLETS PO SCH (11:51)
[2021-07-19] MEDS ORDERED: HYDROCHLOROTHIAZIDE 12.5 MG CAPSULE (FP) PO SCH (13:15)
[2021-07-19] MEDS: NICOTINE 7 MG/24 HOURS TOPICAL PATCH TD SCH (15:24)
[2021-07-20] MEDS ORDERED: chlordiazePOXIDE HCL 10 MG CAPSULE PO SCH (05:00)
[2021-07-20] MEDS: hydrOXYzine PAMOATE 25 MG CAPSULE (FP) PO SCH ×2 (06:25→10:53)
[2021-07-20 09:47] VITALS: BP 149/90; PULSE 70; TEMP 98.2
[2021-07-20] MEDS ORDERED: methaDONE HCL 10 MG TABLET (FOR DETOX USE ONLY) PO ONE (10:00)
[2021-07-20] MEDS: ASPIRIN 81 MG CHEWABLE TABLETS PO SCH (10:52)
[2021-07-20] MEDS: PRENATAL VITAMINS W/ FOLIC ACID TABLET (FP) PO SCH (10:52)
[2021-07-20] MEDS: METHOCARBAMOL 500 MG TABLET PO PRN (10:53)
[2021-07-20] MEDS: LOSARTAN POTASSIUM 50 MG TABLET PO SCH (10:53)
[2021-07-20] MEDS: NICOTINE 7 MG/24 HOURS TOPICAL PATCH TD SCH (10:54)
[2021-07-21] MEDS ORDERED: chlordiazePOXIDE HCL 10 MG CAPSULE PO PRN
[2021-07-21] MEDS ORDERED: chlordiazePOXIDE HCL 10 MG CAPSULE PO ONE (05:00)
== END 2021-07-20 13:21 | disposition home or self-care (01) | DRG 773 ==
LOC: YASAS 14:57 → Y6N 19:39
PROVIDERS: ADMIT Allergy & Immunology; ATTEND Allergy & Immunology
PROC: HZ2ZZZZ Detoxification Services for Substance Abuse Treatment (ICD-10-PCS; principal; 2021-07-17)
DX: F11.23 Opioid dependence with withdrawal (principal); F10.230 Alcohol dependence with withdrawal, uncomplicated; F17.213 Nicotine dependence, cigarettes, with withdrawal; I10 Essential (primary) hypertension; E78.1 Pure hyperglyceridemia; Z56.0 Unemployment, unspecified
CPT/HCPCS: 36415; 80053; 85027; 86780; C9803; J0735; U0003; U0005

== ENCOUNTER 2022-02-24 00:13 | Inpatient (IN) | payer OTHER ==
[2022-02-24 01:08] VITALS: BMI 28.7
[2022-02-24] MEDS ORDERED: IBUPROFEN 600 MG TABLET (FP) PO PRN (01:26)
[2022-02-24] MEDS ORDERED: MAGNESIUM HYDROX 2400MG/30ML ORAL SUSPENSION 30 ML CUP PO PRN (01:26)
[2022-02-24] MEDS ORDERED: chlordiazePOXIDE HCL 25 MG CAPSULE PO PRN (01:26)
[2022-02-24] MEDS ORDERED: guaiFENesin 200 MG/10 ML 10 ML UNIT-DOSE CUPS PO PRN (01:26)
[2022-02-24] MEDS ORDERED: PROCHLORPERAZINE MALEATE 5 MG TABLET PO PRN (01:26)
[2022-02-24] MEDS ORDERED: BISMUTH SUBSALICYLATE 524 MG/30 ML PO PRN (01:26)
[2022-02-24] MEDS ORDERED: DICYCLOMINE HCL 10 MG CAPSULE PO PRN (01:26)
[2022-02-24] MEDS ORDERED: NALOXONE HCL (KLOXXADO) 8 MG SPRAY NS PRN (01:26)
[2022-02-24] MEDS ORDERED: NALOXONE HCL 0.4 MG/ML VIAL IM PRN (01:26)
[2022-02-24] MEDS ORDERED: cloNIDine HCL 0.1 MG TABLET PO PRN (01:26)
[2022-02-24] MEDS ORDERED: ACETAMINOPHEN 325 MG TABLET (FP) PO PRN ×2 (01:26)
[2022-02-24] MEDS ORDERED: IBUPROFEN 400 MG TABLET (FP) PO PRN (01:26)
[2022-02-24] MEDS ORDERED: MAGNESIUM CITRATE 300 ML BOTTLE PO PRN (01:26)
[2022-02-24] MEDS ORDERED: BENZOCAINE/MENTHOL (CHLORASEPTIC ) LOZENGE MM PRN (01:26)
[2022-02-24] MEDS ORDERED: P-EPHED 60MG/TRIPROLIDI 2.5MG TABLET PO PRN (01:26)
[2022-02-24] MEDS ORDERED: LOPERAMIDE HCL 2 MG CAPSULE PO PRN (01:26)
[2022-02-24] MEDS ORDERED: MAG HYDROX/AL HYDROX/SIMETH 30 ML UNIT-DOSE CUP PO PRN (01:26)
[2022-02-24] MEDS ORDERED: methaDONE HCL 10 MG TABLET (FOR DETOX USE ONLY) PO ONE (01:26)
[2022-02-24] MEDS: NICOTINE POLACRILEX 2 MG GUM BUC PRN ×2 (02:54→11:03)
[2022-02-24] MEDS: chlordiazePOXIDE HCL 25 MG CAPSULE PO SCH ×4 (05:51→22:27)
[2022-02-24] MEDS: PRENATAL VITAMINS W/ FOLIC ACID TABLET (FP) PO SCH (10:57)
[2022-02-24] MEDS: METHOCARBAMOL 500 MG TABLET PO PRN (10:57)
[2022-02-24] MEDS: ASPIRIN 81 MG CHEWABLE TABLETS PO SCH (10:57)
[2022-02-24] MEDS: NICOTINE 14 MG/24 HOURS TOPICAL PATCH TD SCH (11:05)
[2022-02-24] MEDS: LOSARTAN POTASSIUM 25 MG TABLET PO SCH (12:31)
[2022-02-24] MEDS: MELATONIN 5 MG TABLETS PO SCH (22:27)
[2022-02-24] MEDS: THIAMINE HCL 100 MG TABLET (FP) PO SCH (22:27)
[2022-02-24] MEDS: ATORVASTATIN CA 10 MG TABLET (FP) PO SCH (22:27)
[2022-02-25] MEDS: chlordiazePOXIDE HCL 25 MG CAPSULE PO SCH ×4 (06:14→23:30)
[2022-02-25] MEDS ORDERED: methaDONE HCL 10 MG TABLET (FOR DETOX USE ONLY) ONE (09:50)
[2022-02-25] MEDS: PRENATAL VITAMINS W/ FOLIC ACID TABLET (FP) PO SCH (11:17)
[2022-02-25] MEDS: LOSARTAN POTASSIUM 25 MG TABLET PO SCH (11:18)
[2022-02-25] MEDS: NICOTINE 14 MG/24 HOURS TOPICAL PATCH TD SCH (11:18)
[2022-02-25] MEDS: METHOCARBAMOL 500 MG TABLET PO PRN (11:18)
[2022-02-25] MEDS: ASPIRIN 81 MG CHEWABLE TABLETS PO SCH (11:18)
[2022-02-25 16:31] LABS: HEMATOCRIT 42.3 % (35.4-49); HEMOGLOBIN 14.2 GM/dL (11.7-16.9); MCH 31.7 pg (25.7-33.7); MCHC 33.7 g/dl (32.0-35.9); MEAN PLT VOLUME 7.6 fl (7.5-11.1); PLATELET COUNT 290 10^3/uL (134-434); RDW 13.1 % (11.9-15.9); WHITE BLOOD COUNT 6.5 K/mm3 (4.0-10.0)
[2022-02-25 16:35] LABS: ALBUMIN 3.6 g/dl (3.4-5.0); CALCIUM 9.3 mg/dL (8.5-10.1)
[2022-02-25 16:38] LABS: CREATININE 0.8 mg/dL (0.55-1.3)
[2022-02-25 16:40] LABS: BILIRUBIN,TOTAL 0.5 mg/dL (0.2-1); TOT PROT 7.2 g/dl (6.4-8.2)
[2022-02-25] MEDS: ATORVASTATIN CA 10 MG TABLET (FP) PO SCH (23:30)
[2022-02-25] MEDS: MELATONIN 5 MG TABLETS PO SCH (23:30)
[2022-02-25] MEDS: THIAMINE HCL 100 MG TABLET (FP) PO SCH (23:33)
[2022-02-26] MEDS ORDERED: chlordiazePOXIDE HCL 10 MG CAPSULE PO PRN
[2022-02-26] MEDS: chlordiazePOXIDE HCL 10 MG CAPSULE PO SCH ×4 (06:08→23:09)
[2022-02-26] MEDS ORDERED: methaDONE HCL 10 MG TABLET (FOR DETOX USE ONLY) PO ONE (10:00)
[2022-02-26] MEDS: PRENATAL VITAMINS W/ FOLIC ACID TABLET (FP) PO SCH (10:53)
[2022-02-26] MEDS: NICOTINE 14 MG/24 HOURS TOPICAL PATCH TD SCH (10:53)
[2022-02-26] MEDS: METHOCARBAMOL 500 MG TABLET PO PRN (10:53)
[2022-02-26] MEDS: ASPIRIN 81 MG CHEWABLE TABLETS PO SCH (10:53)
[2022-02-26] MEDS: LOSARTAN POTASSIUM 25 MG TABLET PO SCH (13:56)
[2022-02-26] MEDS: THIAMINE HCL 100 MG TABLET (FP) PO SCH (23:09)
[2022-02-26] MEDS: ATORVASTATIN CA 10 MG TABLET (FP) PO SCH (23:09)
[2022-02-26] MEDS: MELATONIN 5 MG TABLETS PO SCH (23:09)
[2022-02-27] MEDS ORDERED: chlordiazePOXIDE HCL 10 MG CAPSULE PO SCH (05:00)
[2022-02-27 07:02] VITALS: TEMP 97.7
[2022-02-27 09:10] VITALS: BP 146/89; PULSE 55; RESP 16
[2022-02-27] MEDS ORDERED: methaDONE HCL 10 MG TABLET (FOR DETOX USE ONLY) ONE (09:16)
[2022-02-27] MEDS: NICOTINE 14 MG/24 HOURS TOPICAL PATCH TD SCH (10:29)
[2022-02-27] MEDS: LOSARTAN POTASSIUM 25 MG TABLET PO SCH (10:29)
[2022-02-27] MEDS: PRENATAL VITAMINS W/ FOLIC ACID TABLET (FP) PO SCH (10:29)
[2022-02-27] MEDS: ASPIRIN 81 MG CHEWABLE TABLETS PO SCH (10:29)
[2022-02-28] MEDS ORDERED: chlordiazePOXIDE HCL 10 MG CAPSULE PO ONE (05:00)
[2022-02-28] MEDS ORDERED: methaDONE HCL 10 MG TABLET (FOR DETOX USE ONLY) PO ONE (10:00)
== END 2022-02-27 10:30 | disposition left against medical advice (07) | DRG 770 ==
LOC: YASAS 00:13 → Y6N 01:35
PROVIDERS: ADMIT Allergy & Immunology; ATTEND Surgery
PROC: HZ2ZZZZ Detoxification Services for Substance Abuse Treatment (ICD-10-PCS; principal; 2022-02-24)
DX: F11.23 Opioid dependence with withdrawal (principal); F10.230 Alcohol dependence with withdrawal, uncomplicated; F17.210 Nicotine dependence, cigarettes, uncomplicated; E78.5 Hyperlipidemia, unspecified; I10 Essential (primary) hypertension
CPT/HCPCS: 36415; 80053; 85027; 86780; C9803-CS; J0735; U0003; U0005

== ENCOUNTER 2022-06-03 22:16 | Inpatient (IN) | payer OTHER ==
[2022-06-03 22:58] VITALS: BMI 27.7
[2022-06-04] MEDS ORDERED: LOPERAMIDE HCL 2 MG CAPSULE PO PRN (00:07)
[2022-06-04] MEDS ORDERED: NICOTINE POLACRILEX 2 MG GUM BUC PRN (00:07)
[2022-06-04] MEDS ORDERED: BISMUTH SUBSALICYLATE 524 MG/30 ML PO PRN (00:07)
[2022-06-04] MEDS ORDERED: hydrOXYzine PAMOATE 25 MG CAPSULE (FP) PO PRN (00:07)
[2022-06-04] MEDS ORDERED: BENZOCAINE/MENTHOL (CHLORASEPTIC ) LOZENGE MM PRN (00:07)
[2022-06-04] MEDS ORDERED: MAGNESIUM CITRATE 300 ML BOTTLE PO PRN (00:07)
[2022-06-04] MEDS ORDERED: MAG HYDROX/AL HYDROX/SIMETH 30 ML UNIT-DOSE CUP PO PRN (00:07)
[2022-06-04] MEDS ORDERED: IBUPROFEN 400 MG TABLET (FP) PO PRN (00:07)
[2022-06-04] MEDS ORDERED: DICYCLOMINE HCL 10 MG CAPSULE PO PRN (00:07)
[2022-06-04] MEDS ORDERED: ONDANSETRON *ODT* 4 MG TABLET SL PRN (00:07)
[2022-06-04] MEDS ORDERED: METHOCARBAMOL 500 MG TABLET PO PRN (00:07)
[2022-06-04] MEDS ORDERED: ACETAMINOPHEN 325 MG TABLET (FP) PO PRN ×2 (00:07)
[2022-06-04] MEDS ORDERED: MAGNESIUM HYDROX 2400MG/30ML ORAL SUSPENSION 30 ML CUP PO PRN (00:07)
[2022-06-04] MEDS ORDERED: NALOXONE HCL (KLOXXADO) 8 MG SPRAY NS PRN (00:07)
[2022-06-04] MEDS ORDERED: IBUPROFEN 600 MG TABLET (FP) PO PRN (00:07)
[2022-06-04] MEDS ORDERED: methaDONE HCL 10 MG TABLET (FOR DETOX USE ONLY) PO ONE (08:42)
[2022-06-04] MEDS ORDERED: chlordiazePOXIDE HCL 25 MG CAPSULE PO PRN (08:42)
[2022-06-04] MEDS: CHOLECALCIFEROL (VIT D3) 1,000 UNIT (25 MCG) TABLET PO SCH (10:41)
[2022-06-04] MEDS: PRENATAL VITAMINS W/ FOLIC ACID TABLET (FP) PO SCH (10:41)
[2022-06-04] MEDS: NICOTINE 14 MG/24 HOURS TOPICAL PATCH TD SCH (10:43)
[2022-06-04] MEDS: LOSARTAN POTASSIUM 25 MG TABLET PO SCH (10:43)
[2022-06-04] MEDS: ASPIRIN 81 MG CHEWABLE TABLETS PO SCH (10:43)
[2022-06-04] MEDS: chlordiazePOXIDE HCL 25 MG CAPSULE PO SCH ×3 (10:45→22:33)
[2022-06-04] MEDS: cloNIDine HCL 0.1 MG TABLET PO PRN ×2 (12:42→17:47)
[2022-06-04] MEDS: THIAMINE HCL 100 MG TABLET (FP) PO SCH (22:31)
[2022-06-04] MEDS: ATORVASTATIN CA 10 MG TABLET (FP) PO SCH (22:32)
[2022-06-04] MEDS: MELATONIN 5 MG TABLETS PO SCH (22:32)
[2022-06-05] MEDS: chlordiazePOXIDE HCL 25 MG CAPSULE PO SCH ×4 (06:57→22:58)
[2022-06-05 09:28] LABS: BLOOD UREA NITROGEN 13.5 mg/dL (7-18); CALCIUM 8.6 mg/dL (8.5-10.1); HEMATOCRIT 35.8 % (35.4-49); HEMOGLOBIN 12.6 GM/dL (11.7-16.9); MCH 32.6 pg (25.7-33.7); MCHC 35.3 g/dl (32.0-35.9); MEAN CELL VOLUME 92.5 fl (80-96); MEAN PLT VOLUME 7.4 fl (7.5-11.1); PLATELET COUNT 260 10^3/uL (134-434); RBC 3.87 M/mm3 (4.00-5.60); RDW 12.9 % (11.9-15.9); WHITE BLOOD COUNT 7.8 K/mm3 (4.0-10.0)
[2022-06-05 09:29] LABS: ALBUMIN 3.1 g/dl (3.4-5.0)
[2022-06-05 09:32] LABS: CREATININE 0.8 mg/dL (0.55-1.3)
[2022-06-05 09:34] LABS: BILIRUBIN,TOTAL 0.3 mg/dL (0.2-1); TOT PROT 6.2 g/dl (6.4-8.2)
[2022-06-05] MEDS: PRENATAL VITAMINS W/ FOLIC ACID TABLET (FP) PO SCH (10:45)
[2022-06-05] MEDS: CHOLECALCIFEROL (VIT D3) 1,000 UNIT (25 MCG) TABLET PO SCH (10:45)
[2022-06-05] MEDS: ASPIRIN 81 MG CHEWABLE TABLETS PO SCH (10:46)
[2022-06-05] MEDS: LOSARTAN POTASSIUM 25 MG TABLET PO SCH (10:46)
[2022-06-05] MEDS: NICOTINE 14 MG/24 HOURS TOPICAL PATCH TD SCH (10:50)
[2022-06-05] MEDS: THIAMINE HCL 100 MG TABLET (FP) PO SCH (22:58)
[2022-06-05] MEDS: ATORVASTATIN CA 10 MG TABLET (FP) PO SCH (22:58)
[2022-06-05] MEDS: MELATONIN 5 MG TABLETS PO SCH (22:58)
[2022-06-06] MEDS: chlordiazePOXIDE HCL 25 MG CAPSULE PO SCH ×4 (06:13→22:34)
[2022-06-06] MEDS ORDERED: methaDONE HCL 10 MG TABLET (FOR DETOX USE ONLY) PO ONE (10:00)
[2022-06-06] MEDS: PRENATAL VITAMINS W/ FOLIC ACID TABLET (FP) PO SCH (10:37)
[2022-06-06] MEDS: CHOLECALCIFEROL (VIT D3) 1,000 UNIT (25 MCG) TABLET PO SCH (10:37)
[2022-06-06] MEDS: LOSARTAN POTASSIUM 25 MG TABLET PO SCH (10:38)
[2022-06-06] MEDS: ASPIRIN 81 MG CHEWABLE TABLETS PO SCH (10:38)
[2022-06-06] MEDS: NICOTINE 14 MG/24 HOURS TOPICAL PATCH TD SCH (10:38)
[2022-06-06] MEDS: ATORVASTATIN CA 10 MG TABLET (FP) PO SCH (22:33)
[2022-06-06] MEDS: MELATONIN 5 MG TABLETS PO SCH (22:33)
[2022-06-06] MEDS: THIAMINE HCL 100 MG TABLET (FP) PO SCH (22:37)
[2022-06-07] MEDS ORDERED: chlordiazePOXIDE HCL 10 MG CAPSULE PO PRN
[2022-06-07] MEDS: chlordiazePOXIDE HCL 10 MG CAPSULE PO SCH ×2 (06:27→11:00)
[2022-06-07 09:05] VITALS: BP 147/94; PULSE 70; RESP 17; TEMP 98.2
[2022-06-07] MEDS: NICOTINE 14 MG/24 HOURS TOPICAL PATCH TD SCH (10:59)
[2022-06-07] MEDS: LOSARTAN POTASSIUM 25 MG TABLET PO SCH (10:59)
[2022-06-07] MEDS: ASPIRIN 81 MG CHEWABLE TABLETS PO SCH (10:59)
[2022-06-07] MEDS: PRENATAL VITAMINS W/ FOLIC ACID TABLET (FP) PO SCH (10:59)
[2022-06-07] MEDS: CHOLECALCIFEROL (VIT D3) 1,000 UNIT (25 MCG) TABLET PO SCH (11:00)
[2022-06-08] MEDS ORDERED: chlordiazePOXIDE HCL 10 MG CAPSULE PO SCH (05:00)
[2022-06-08] MEDS ORDERED: methaDONE HCL 10 MG TABLET (FOR DETOX USE ONLY) PO ONE (10:00)
[2022-06-09] MEDS ORDERED: chlordiazePOXIDE HCL 10 MG CAPSULE PO ONE (05:00)
== END 2022-06-07 11:11 | disposition left against medical advice (07) | DRG 770 ==
LOC: YASAS 22:16 → Y3N 06-04 00:59
PROVIDERS: ADMIT Surgery; ATTEND Surgery
PROC: HZ2ZZZZ Detoxification Services for Substance Abuse Treatment (ICD-10-PCS; principal; 2022-06-04)
DX: F11.23 Opioid dependence with withdrawal (principal); F10.230 Alcohol dependence with withdrawal, uncomplicated; F17.210 Nicotine dependence, cigarettes, uncomplicated; F19.24 Other psychoactive substance dependence with psychoactive substance-induced mood disorder; F41.0 Panic disorder [episodic paroxysmal anxiety]; E78.5 Hyperlipidemia, unspecified; E55.9 Vitamin D deficiency, unspecified; I10 Essential (primary) hypertension; Z28.310 Unvaccinated for COVID-19; Z28.9 Immunization not carried out for unspecified reason
CPT/HCPCS: 36415; 80053; 85027; 86780; 93005; 93010; C9803-CS; U0003; U0005

== ENCOUNTER 2022-09-09 23:26 | Inpatient (IN) | payer OTHER ==
[2022-09-10 00:57] VITALS: BMI 28.0
[2022-09-10] MEDS ORDERED: POLYETHYLENE GLYCOL (HEALTHYLAX) 3350 17 GM PACKET PO PRN (01:52)
[2022-09-10] MEDS ORDERED: MAG HYDROX/AL HYDROX/SIMETH 30 ML UNIT-DOSE CUP PO PRN (01:52)
[2022-09-10] MEDS ORDERED: IBUPROFEN 600 MG TABLET (FP) PO PRN (01:52)
[2022-09-10] MEDS ORDERED: LOPERAMIDE HCL 2 MG CAPSULE PO PRN (01:52)
[2022-09-10] MEDS ORDERED: IBUPROFEN 400 MG TABLET (FP) PO PRN (01:52)
[2022-09-10] MEDS ORDERED: DICYCLOMINE HCL 10 MG CAPSULE PO PRN (01:52)
[2022-09-10] MEDS ORDERED: MAGNESIUM HYDROX 2400MG/30ML ORAL SUSPENSION 30 ML CUP PO PRN (01:52)
[2022-09-10] MEDS ORDERED: ACETAMINOPHEN 325 MG TABLET (FP) PO PRN ×2 (01:52)
[2022-09-10] MEDS ORDERED: ONDANSETRON *ODT* 4 MG TABLET SL PRN (01:52)
[2022-09-10] MEDS ORDERED: NALOXONE HCL (KLOXXADO) 8 MG SPRAY NS PRN (01:52)
[2022-09-10] MEDS ORDERED: METHOCARBAMOL 500 MG TABLET PO PRN (01:52)
[2022-09-10] MEDS ORDERED: NICOTINE POLACRILEX 2 MG GUM BUC PRN (01:52)
[2022-09-10] MEDS ORDERED: BENZOCAINE/MENTHOL (CHLORASEPTIC ) LOZENGE MM PRN (01:52)
[2022-09-10] MEDS ORDERED: BISMUTH SUBSALICYLATE 524 MG/30 ML PO PRN (01:52)
[2022-09-10] MEDS ORDERED: chlordiazePOXIDE HCL 25 MG CAPSULE PO PRN (09:16)
[2022-09-10] MEDS ORDERED: methaDONE HCL 10 MG TABLET (FOR DETOX USE ONLY) PO ONE (09:30)
[2022-09-10] MEDS: PRENATAL VITAMINS W/ FOLIC ACID TABLET (FP) PO SCH (10:12)
[2022-09-10] MEDS: chlordiazePOXIDE HCL 25 MG CAPSULE PO SCH ×3 (10:14→22:27)
[2022-09-10] MEDS: NICOTINE 14 MG/24 HOURS TOPICAL PATCH TD SCH (10:15)
[2022-09-10 11:01] LABS: HEMATOCRIT 35.6 % (35.4-49); HEMOGLOBIN 12.3 GM/dL (11.7-16.9); MCH 31.8 pg (25.7-33.7); MCHC 34.4 g/dl (32.0-35.9); MEAN CELL VOLUME 92.3 fl (80-96); MEAN PLT VOLUME 7.5 fl (7.5-11.1); PLATELET COUNT 287 10^3/uL (134-434); RBC 3.86 M/mm3 (4.00-5.60); RDW 13.1 % (11.9-15.9); WHITE BLOOD COUNT 5.7 K/mm3 (4.0-10.0)
[2022-09-10 11:25] LABS: CALCIUM 8.5 mg/dL (8.5-10.1)
[2022-09-10 11:26] LABS: ALBUMIN 3.4 g/dl (3.4-5.0); BLOOD UREA NITROGEN 17.4 mg/dL (7-18)
[2022-09-10 11:29] LABS: CREATININE 1.1 mg/dL (0.55-1.3)
[2022-09-10 11:30] LABS: BILIRUBIN,TOTAL 0.4 mg/dL (0.2-1)
[2022-09-10 11:31] LABS: TOT PROT 6.4 g/dl (6.4-8.2)
[2022-09-10] MEDS: MELATONIN 5 MG TABLETS PO SCH (22:26)
[2022-09-10] MEDS: THIAMINE HCL 100 MG TABLET (FP) PO SCH (22:26)
[2022-09-11] MEDS: chlordiazePOXIDE HCL 25 MG CAPSULE PO SCH ×4 (06:04→22:14)
[2022-09-11] MEDS: PRENATAL VITAMINS W/ FOLIC ACID TABLET (FP) PO SCH (10:09)
[2022-09-11] MEDS: NICOTINE 14 MG/24 HOURS TOPICAL PATCH TD SCH (10:10)
[2022-09-11] MEDS: cloNIDine HCL 0.1 MG TABLET PO PRN (10:10)
[2022-09-11] MEDS: THIAMINE HCL 100 MG TABLET (FP) PO SCH (22:13)
[2022-09-11] MEDS: MELATONIN 5 MG TABLETS PO SCH (22:13)
[2022-09-12] MEDS: chlordiazePOXIDE HCL 25 MG CAPSULE PO SCH ×4 (06:41→22:42)
[2022-09-12] MEDS ORDERED: methaDONE HCL 10 MG TABLET (FOR DETOX USE ONLY) PO ONE (10:00)
[2022-09-12] MEDS: NICOTINE 14 MG/24 HOURS TOPICAL PATCH TD SCH (10:46)
[2022-09-12] MEDS: PRENATAL VITAMINS W/ FOLIC ACID TABLET (FP) PO SCH (10:46)
[2022-09-12] MEDS: cloNIDine HCL 0.1 MG TABLET PO PRN (15:38)
[2022-09-12] MEDS: THIAMINE HCL 100 MG TABLET (FP) PO SCH (22:38)
[2022-09-12] MEDS: MELATONIN 5 MG TABLETS PO SCH (22:38)
[2022-09-13] MEDS ORDERED: chlordiazePOXIDE HCL 10 MG CAPSULE PO PRN
[2022-09-13] MEDS: chlordiazePOXIDE HCL 10 MG CAPSULE PO SCH ×3 (05:56→17:56)
[2022-09-13 06:40] VITALS: RESP 18
[2022-09-13] MEDS: PRENATAL VITAMINS W/ FOLIC ACID TABLET (FP) PO SCH (10:32)
[2022-09-13] MEDS: NICOTINE 14 MG/24 HOURS TOPICAL PATCH TD SCH (10:33)
[2022-09-13] MEDS ORDERED: LOSARTAN POTASSIUM 25 MG TABLET PO SCH (11:45)
[2022-09-13 17:33] VITALS: TEMP 97.4
[2022-09-13 21:44] VITALS: BP 144/92; PULSE 71
[2022-09-13] MEDS ORDERED: ATORVASTATIN CA 10 MG TABLET (FP) PO SCH (22:00)
[2022-09-14] MEDS ORDERED: chlordiazePOXIDE HCL 10 MG CAPSULE PO SCH (05:00)
[2022-09-14] MEDS ORDERED: methaDONE HCL 10 MG TABLET (FOR DETOX USE ONLY) PO ONE (10:00)
[2022-09-15] MEDS ORDERED: chlordiazePOXIDE HCL 10 MG CAPSULE PO ONE (05:00)
== END 2022-09-13 21:55 | disposition left against medical advice (07) | DRG 770 ==
LOC: YASAS 23:26 → Y3N 09-10 02:01
PROVIDERS: ADMIT Allergy & Immunology; ATTEND Family Medicine
PROC: HZ2ZZZZ Detoxification Services for Substance Abuse Treatment (ICD-10-PCS; principal; 2022-09-10)
DX: F11.23 Opioid dependence with withdrawal (principal); F10.230 Alcohol dependence with withdrawal, uncomplicated; F17.210 Nicotine dependence, cigarettes, uncomplicated; E55.9 Vitamin D deficiency, unspecified; E78.5 Hyperlipidemia, unspecified; I10 Essential (primary) hypertension; Z28.310 Unvaccinated for COVID-19; Z28.21 Immunization not carried out because of patient refusal
CPT/HCPCS: 36415; 80053; 85027; 86780; C9803-CS; U0003; U0005

== ENCOUNTER 2022-11-26 23:14 | Inpatient (IN) | payer OTHER ==
[2022-11-27 00:35] VITALS: BMI 27.3
[2022-11-27] MEDS ORDERED: ONDANSETRON *ODT* 4 MG TABLET SL PRN (01:16)
[2022-11-27] MEDS ORDERED: LOPERAMIDE HCL 2 MG CAPSULE PO PRN (01:16)
[2022-11-27] MEDS ORDERED: DICYCLOMINE HCL 10 MG CAPSULE PO PRN (01:16)
[2022-11-27] MEDS ORDERED: BENZOCAINE/MENTHOL (CHLORASEPTIC ) LOZENGE MM PRN (01:16)
[2022-11-27] MEDS ORDERED: NALOXONE HCL 0.4 MG/ML VIAL IM PRN (01:16)
[2022-11-27] MEDS ORDERED: guaiFENesin 600 MG TABLET.ER (FP) PO PRN (01:16)
[2022-11-27] MEDS ORDERED: MAG HYDROX/AL HYDROX/SIMETH 30 ML UNIT-DOSE CUP PO PRN (01:16)
[2022-11-27] MEDS ORDERED: NALOXONE HCL (KLOXXADO) 8 MG SPRAY NS PRN (01:16)
[2022-11-27] MEDS ORDERED: ACETAMINOPHEN 325 MG TABLET (FP) PO PRN (01:16)
[2022-11-27] MEDS ORDERED: POLYETHYLENE GLYCOL (HEALTHYLAX) 3350 17 GM PACKET PO PRN (01:16)
[2022-11-27] MEDS ORDERED: BENZONATATE 200 MG CAPSULE PO PRN (01:16)
[2022-11-27] MEDS ORDERED: MAGNESIUM HYDROX 2400MG/30ML ORAL SUSPENSION 30 ML CUP PO PRN (01:16)
[2022-11-27] MEDS ORDERED: NICOTINE 10 MG CARTRIDGE (INHALER) IH PRN (01:16)
[2022-11-27] MEDS ORDERED: BISMUTH SUBSALICYLATE 524 MG/30 ML PO PRN (01:16)
[2022-11-27] MEDS ORDERED: IBUPROFEN 400 MG TABLET (FP) PO PRN (01:16)
[2022-11-27] MEDS ORDERED: IBUPROFEN 600 MG TABLET (FP) PO PRN (01:16)
[2022-11-27] MEDS ORDERED: methaDONE HCL 10 MG TABLET (FOR DETOX USE ONLY) PO ONE (09:20)
[2022-11-27] MEDS ORDERED: LORazepam 2 MG TABLET PO ONE (09:20)
[2022-11-27] MEDS ORDERED: LORazepam 1 MG TABLET PO PRN (09:20)
[2022-11-27] MEDS ORDERED: methaDONE HCL 10 MG TABLET (FOR DETOX USE ONLY) ONE (10:24)
[2022-11-27] MEDS ORDERED: LORazepam 2 MG TABLET ONE (10:24)
[2022-11-27] MEDS ORDERED: NICOTINE 14 MG/24 HOURS TOPICAL PATCH TD ONE (10:27)
[2022-11-27] MEDS ORDERED: PRENATAL VITAMINS W/ FOLIC ACID TABLET (FP) PO ONE (10:28)
[2022-11-27] MEDS: PRENATAL VITAMINS W/ FOLIC ACID TABLET (FP) PO SCH (10:31)
[2022-11-27] MEDS: NICOTINE 14 MG/24 HOURS TOPICAL PATCH TD SCH ×2 (10:31→10:35)
[2022-11-27] MEDS: LOSARTAN POTASSIUM 25 MG TABLET PO SCH (11:34)
[2022-11-27] MEDS: LORazepam 2 MG TABLET PO SCH ×3 (12:59→22:22)
[2022-11-27] MEDS: cloNIDine HCL 0.1 MG TABLET PO PRN (13:19)
[2022-11-27] MEDS: THIAMINE HCL 100 MG TABLET (FP) PO SCH (22:22)
[2022-11-27] MEDS: ATORVASTATIN CA 20 MG TABLET (FP) PO SCH (22:22)
[2022-11-27] MEDS: MELATONIN 5 MG TABLETS PO SCH (22:24)
[2022-11-28] MEDS: LORazepam 2 MG TABLET PO SCH ×4 (06:01→22:45)
[2022-11-28] MEDS: PRENATAL VITAMINS W/ FOLIC ACID TABLET (FP) PO SCH (10:47)
[2022-11-28] MEDS: NICOTINE 14 MG/24 HOURS TOPICAL PATCH TD SCH (10:47)
[2022-11-28] MEDS: LOSARTAN POTASSIUM 25 MG TABLET PO SCH (10:49)
[2022-11-28 15:33] LABS: HEMATOCRIT 38.1 % (35.4-49); HEMOGLOBIN 13.3 GM/dL (11.7-16.9); MCH 31.6 pg (25.7-33.7); MEAN CELL VOLUME 90.3 fl (80-96); MEAN PLT VOLUME 7.5 fl (7.5-11.1); PLATELET COUNT 240 10^3/uL (134-434); RBC 4.22 M/mm3 (4.00-5.60); RDW 13.1 % (11.9-15.9); WHITE BLOOD COUNT 5.5 K/mm3 (4.0-10.0)
[2022-11-28 15:54] LABS: ALBUMIN 3.5 g/dl (3.4-5.0); CALCIUM 9.3 mg/dL (8.5-10.1)
[2022-11-28 15:57] LABS: CREATININE 0.8 mg/dL (0.55-1.3)
[2022-11-28 16:01] LABS: BILIRUBIN,TOTAL 0.7 mg/dL (0.2-1); TOT PROT 6.8 g/dl (6.4-8.2)
[2022-11-28] MEDS: cloNIDine HCL 0.1 MG TABLET PO PRN (17:26)
[2022-11-28] MEDS: MELATONIN 5 MG TABLETS PO SCH (22:45)
[2022-11-28] MEDS: ATORVASTATIN CA 20 MG TABLET (FP) PO SCH (22:45)
[2022-11-28] MEDS: THIAMINE HCL 100 MG TABLET (FP) PO SCH (22:49)
[2022-11-29] MEDS: LORazepam 1 MG TABLET PO SCH ×4 (06:00→22:31)
[2022-11-29] MEDS ORDERED: methaDONE HCL 10 MG TABLET (FOR DETOX USE ONLY) PO ONE (10:00)
[2022-11-29] MEDS: PRENATAL VITAMINS W/ FOLIC ACID TABLET (FP) PO SCH (10:41)
[2022-11-29] MEDS: METHOCARBAMOL 500 MG TABLET PO PRN ×2 (10:41→22:31)
[2022-11-29] MEDS: LOSARTAN POTASSIUM 25 MG TABLET PO SCH (10:41)
[2022-11-29] MEDS: NICOTINE 14 MG/24 HOURS TOPICAL PATCH TD SCH (10:42)
[2022-11-29] MEDS: ATORVASTATIN CA 20 MG TABLET (FP) PO SCH (22:30)
[2022-11-29] MEDS: MELATONIN 5 MG TABLETS PO SCH (22:33)
[2022-11-29] MEDS: THIAMINE HCL 100 MG TABLET (FP) PO SCH (22:33)
[2022-11-30] MEDS ORDERED: LORazepam 0.5 MG TABLET PO PRN
[2022-11-30] MEDS: LORazepam 0.5 MG TABLET PO SCH ×4 (06:03→22:32)
[2022-11-30 09:12] VITALS: RESP 18
[2022-11-30] MEDS: METHOCARBAMOL 500 MG TABLET PO PRN (10:34)
[2022-11-30] MEDS: LOSARTAN POTASSIUM 25 MG TABLET PO SCH (10:34)
[2022-11-30] MEDS: PRENATAL VITAMINS W/ FOLIC ACID TABLET (FP) PO SCH (10:34)
[2022-11-30] MEDS: NICOTINE 14 MG/24 HOURS TOPICAL PATCH TD SCH (10:37)
[2022-11-30 11:49] LABS: CALCIUM 9.1 mg/dL (8.5-10.1)
[2022-11-30 11:50] LABS: BLOOD UREA NITROGEN 8.9 mg/dL (7-18)
[2022-11-30 11:53] LABS: CREATININE 0.9 mg/dL (0.55-1.3)
[2022-11-30] MEDS: MELATONIN 5 MG TABLETS PO SCH (22:31)
[2022-11-30] MEDS: ATORVASTATIN CA 20 MG TABLET (FP) PO SCH (22:32)
[2022-11-30] MEDS: THIAMINE HCL 100 MG TABLET (FP) PO SCH (23:15)
[2022-12-01] MEDS ORDERED: LORazepam 0.5 MG TABLET PO ONE (05:00)
[2022-12-01 09:26] VITALS: BP 148/93; PULSE 78; TEMP 97.2
[2022-12-01] MEDS: LOSARTAN POTASSIUM 25 MG TABLET PO SCH (09:39)
[2022-12-01] MEDS: PRENATAL VITAMINS W/ FOLIC ACID TABLET (FP) PO SCH (09:42)
[2022-12-01] MEDS: NICOTINE 14 MG/24 HOURS TOPICAL PATCH TD SCH (09:42)
[2022-12-01] MEDS ORDERED: methaDONE HCL 10 MG TABLET (FOR DETOX USE ONLY) PO ONE (10:00)
== END 2022-12-01 10:50 | disposition home or self-care (01) | DRG 773 ==
LOC: YASAS 23:14 → Y6N 11-27 12:44 → UNDOADMIN 11-27 12:44
PROVIDERS: ADMIT Allergy & Immunology; ATTEND Surgery
PROC: HZ2ZZZZ Detoxification Services for Substance Abuse Treatment (ICD-10-PCS; principal; 2022-11-27)
DX: F11.23 Opioid dependence with withdrawal (principal); F10.230 Alcohol dependence with withdrawal, uncomplicated; F17.210 Nicotine dependence, cigarettes, uncomplicated; E78.5 Hyperlipidemia, unspecified; E55.9 Vitamin D deficiency, unspecified; I10 Essential (primary) hypertension; Z28.310 Unvaccinated for COVID-19; Z28.9 Immunization not carried out for unspecified reason
CPT/HCPCS: 36415; 80048; 80053; 83036; 85027; 86780; C9803-CS; Q0162; U0003; U0005

== ENCOUNTER 2023-07-21 23:19 | Inpatient (IN) | payer OTHER ==
[2023-07-21 23:54] VITALS: BMI 28.0
[2023-07-22] MEDS ORDERED: NICOTINE POLACRILEX 2 MG GUM BUC PRN (00:44)
[2023-07-22] MEDS ORDERED: NALOXONE HCL 0.4 MG/ML VIAL IM PRN (00:44)
[2023-07-22] MEDS ORDERED: MAG HYDROX/AL HYDROX/SIMETH 30 ML UNIT-DOSE CUP PO PRN (00:44)
[2023-07-22] MEDS ORDERED: guaiFENesin 600 MG TABLET.ER (FP) PO PRN (00:44)
[2023-07-22] MEDS ORDERED: BENZONATATE 200 MG CAPSULE PO PRN (00:44)
[2023-07-22] MEDS ORDERED: chlordiazePOXIDE HCL 25 MG CAPSULE PO PRN (00:44)
[2023-07-22] MEDS ORDERED: IBUPROFEN 400 MG TABLET (FP) PO PRN (00:44)
[2023-07-22] MEDS ORDERED: BISMUTH SUBSALICYLATE 524 MG/30 ML PO PRN (00:44)
[2023-07-22] MEDS ORDERED: POLYETHYLENE GLYCOL (HEALTHYLAX) 3350 17 GM PACKET PO PRN (00:44)
[2023-07-22] MEDS ORDERED: BENZOCAINE/MENTHOL (CHLORASEPTIC ) LOZENGE MM PRN (00:44)
[2023-07-22] MEDS ORDERED: NALOXONE HCL (KLOXXADO) 8 MG SPRAY NS PRN (00:44)
[2023-07-22] MEDS ORDERED: ACETAMINOPHEN 325 MG TABLET (FP) PO PRN (00:44)
[2023-07-22] MEDS ORDERED: LOPERAMIDE HCL 2 MG CAPSULE PO PRN (00:44)
[2023-07-22] MEDS ORDERED: IBUPROFEN 600 MG TABLET (FP) PO PRN (00:44)
[2023-07-22] MEDS ORDERED: MAGNESIUM HYDROX 2400MG/30ML ORAL SUSPENSION 30 ML CUP PO PRN (00:44)
[2023-07-22] MEDS ORDERED: methaDONE HCL 10 MG TABLET (FOR DETOX USE ONLY) PO ONE (00:44)
[2023-07-22] MEDS ORDERED: ONDANSETRON *ODT* 4 MG TABLET SL PRN (00:44)
[2023-07-22] MEDS ORDERED: hydrOXYzine PAMOATE 25 MG CAPSULE (FP) PO PRN (00:44)
[2023-07-22] MEDS ORDERED: DICYCLOMINE HCL 10 MG CAPSULE PO PRN (00:44)
[2023-07-22] MEDS ORDERED: methaDONE HCL 10 MG TABLET (FOR DETOX USE ONLY) ONE (01:53)
[2023-07-22] MEDS: chlordiazePOXIDE HCL 25 MG CAPSULE PO SCH ×4 (05:24→22:40)
[2023-07-22] MEDS: PRENATAL VITAMINS W/ FOLIC ACID TABLET (FP) PO SCH (10:22)
[2023-07-22] MEDS: ASPIRIN 81 MG CHEWABLE TABLETS PO SCH (10:23)
[2023-07-22] MEDS: LOSARTAN POTASSIUM 25 MG TABLET PO SCH (10:24)
[2023-07-22] MEDS: NICOTINE 14 MG/24 HOURS TOPICAL PATCH TD SCH (10:24)
[2023-07-22 11:26] LABS: HEMOGLOBIN 12.4 GM/dL (11.7-16.9); MCH 32.7 pg (25.7-33.7); MCHC 34.4 g/dl (32.0-35.9); MEAN PLT VOLUME 7.4 fl (7.5-11.1); PLATELET COUNT 310 10^3/uL (134-434); RBC 3.79 M/mm3 (4.00-5.60); RDW 12.9 % (11.9-15.9); WHITE BLOOD COUNT 3.8 K/mm3 (4.0-10.0)
[2023-07-22 11:59] LABS: CALCIUM 7.9 mg/dL (8.5-10.1)
[2023-07-22 12:00] LABS: ALBUMIN 3.1 g/dl (3.4-5.0); BLOOD UREA NITROGEN 10.8 mg/dL (7-18)
[2023-07-22 12:03] LABS: CREATININE 0.9 mg/dL (0.55-1.3)
[2023-07-22 12:04] LABS: BILIRUBIN,TOTAL 0.7 mg/dL (0.2-1)
[2023-07-22 12:05] LABS: TOT PROT 6.4 g/dl (6.4-8.2)
[2023-07-22] MEDS: THIAMINE HCL 100 MG TABLET (FP) PO SCH (22:40)
[2023-07-22] MEDS: MELATONIN 5 MG TABLETS PO SCH (22:40)
[2023-07-23] MEDS: chlordiazePOXIDE HCL 25 MG CAPSULE PO SCH ×4 (05:53→22:41)
[2023-07-23] MEDS: LOSARTAN POTASSIUM 25 MG TABLET PO SCH (10:55)
[2023-07-23] MEDS: NICOTINE 14 MG/24 HOURS TOPICAL PATCH TD SCH (10:55)
[2023-07-23] MEDS: ASPIRIN 81 MG CHEWABLE TABLETS PO SCH (10:55)
[2023-07-23] MEDS: PRENATAL VITAMINS W/ FOLIC ACID TABLET (FP) PO SCH (10:55)
[2023-07-23] MEDS: THIAMINE HCL 100 MG TABLET (FP) PO SCH ×2 (22:41→22:45)
[2023-07-23] MEDS: cloNIDine HCL 0.1 MG TABLET PO PRN (22:41)
[2023-07-23] MEDS: MELATONIN 5 MG TABLETS PO SCH ×2 (22:42→22:44)
[2023-07-24] MEDS ORDERED: chlordiazePOXIDE HCL 10 MG CAPSULE PO PRN
[2023-07-24] MEDS: chlordiazePOXIDE HCL 10 MG CAPSULE PO SCH ×4 (05:56→22:55)
[2023-07-24] MEDS: cloNIDine HCL 0.1 MG TABLET PO PRN ×4 (07:14→22:54)
[2023-07-24] MEDS ORDERED: methaDONE HCL 10 MG TABLET (FOR DETOX USE ONLY) PO ONE (10:00)
[2023-07-24] MEDS: PRENATAL VITAMINS W/ FOLIC ACID TABLET (FP) PO SCH (10:40)
[2023-07-24] MEDS: ASPIRIN 81 MG CHEWABLE TABLETS PO SCH (10:40)
[2023-07-24] MEDS: LOSARTAN POTASSIUM 25 MG TABLET PO SCH (10:40)
[2023-07-24] MEDS: LACTULOSE 20 GM/30 ML UDC (FOR ORAL USE ONLY) PO SCH ×4 (10:41→22:54)
[2023-07-24] MEDS: NICOTINE 14 MG/24 HOURS TOPICAL PATCH TD SCH (10:45)
[2023-07-24] MEDS: amLODIPine BESYLATE 10 MG TABLET (FP) PO SCH (15:29)
[2023-07-24] MEDS: THIAMINE HCL 100 MG TABLET (FP) PO SCH (22:53)
[2023-07-24] MEDS: MELATONIN 5 MG TABLETS PO SCH (23:04)
[2023-07-25] MEDS: chlordiazePOXIDE HCL 10 MG CAPSULE PO SCH ×2 (05:50→17:30)
[2023-07-25] MEDS: PRENATAL VITAMINS W/ FOLIC ACID TABLET (FP) PO SCH (10:57)
[2023-07-25] MEDS: ASPIRIN 81 MG CHEWABLE TABLETS PO SCH (10:57)
[2023-07-25] MEDS: amLODIPine BESYLATE 10 MG TABLET (FP) PO SCH (10:57)
[2023-07-25] MEDS: LOSARTAN POTASSIUM 50 MG TABLET PO SCH (10:57)
[2023-07-25] MEDS: NICOTINE 14 MG/24 HOURS TOPICAL PATCH TD SCH (10:58)
[2023-07-25] MEDS: LACTULOSE 20 GM/30 ML UDC (FOR ORAL USE ONLY) PO SCH ×4 (10:58→22:47)
[2023-07-25 21:41] VITALS: RESP 16
[2023-07-25] MEDS: MELATONIN 5 MG TABLETS PO SCH (22:50)
[2023-07-25] MEDS: THIAMINE HCL 100 MG TABLET (FP) PO SCH (22:50)
[2023-07-26] MEDS ORDERED: chlordiazePOXIDE HCL 10 MG CAPSULE PO ONE (05:00)
[2023-07-26 09:34] VITALS: BP 136/86; PULSE 61; TEMP 97.1
[2023-07-26] MEDS ORDERED: methaDONE HCL 10 MG TABLET (FOR DETOX USE ONLY) PO ONE (10:00)
[2023-07-26] MEDS: LACTULOSE 20 GM/30 ML UDC (FOR ORAL USE ONLY) PO SCH (10:31)
[2023-07-26] MEDS: PRENATAL VITAMINS W/ FOLIC ACID TABLET (FP) PO SCH (10:31)
[2023-07-26] MEDS: LOSARTAN POTASSIUM 50 MG TABLET PO SCH (10:31)
[2023-07-26] MEDS: ASPIRIN 81 MG CHEWABLE TABLETS PO SCH (10:31)
[2023-07-26] MEDS: amLODIPine BESYLATE 10 MG TABLET (FP) PO SCH (10:31)
[2023-07-26] MEDS: NICOTINE 14 MG/24 HOURS TOPICAL PATCH TD SCH (10:46)
[2023-07-26] MEDS ORDERED: NALOXONE (NARCAN) HCL 4 MG/0.1 ML SPRAY NS ONE (11:44)
== END 2023-07-26 11:30 | disposition home or self-care (01) | DRG 773 ==
LOC: YASAS 23:19 → Y6N 07-22 02:06
PROVIDERS: ADMIT Allergy & Immunology; ATTEND Surgery
PROC: HZ2ZZZZ Detoxification Services for Substance Abuse Treatment (ICD-10-PCS; principal; 2023-07-22)
DX: F11.23 Opioid dependence with withdrawal (principal); F10.230 Alcohol dependence with withdrawal, uncomplicated; F17.210 Nicotine dependence, cigarettes, uncomplicated; E78.5 Hyperlipidemia, unspecified; I10 Essential (primary) hypertension; R79.89 Other specified abnormal findings of blood chemistry; Z28.310 Unvaccinated for COVID-19; Z28.21 Immunization not carried out because of patient refusal
CPT/HCPCS: 36415; 80053; 80307; 82140; 85027; 86780; 86803; 87635; 87811; 93005; 93010

== ENCOUNTER 2023-12-09 00:50 | Inpatient (IN) | payer OTHER ==
[2023-12-09 01:23] VITALS: BMI 28.0
[2023-12-09] MEDS ORDERED: NICOTINE POLACRILEX 4 MG GUM BUC PRN (01:36)
[2023-12-09] MEDS ORDERED: DICYCLOMINE HCL 10 MG CAPSULE PO PRN (01:36)
[2023-12-09] MEDS ORDERED: IBUPROFEN 600 MG TABLET (FP) PO PRN (01:36)
[2023-12-09] MEDS ORDERED: MAGNESIUM HYDROX 2400MG/30ML ORAL SUSPENSION 30 ML CUP PO PRN (01:36)
[2023-12-09] MEDS ORDERED: BENZONATATE 200 MG CAPSULE PO PRN (01:36)
[2023-12-09] MEDS ORDERED: hydrOXYzine PAMOATE 25 MG CAPSULE (FP) PO PRN (01:36)
[2023-12-09] MEDS ORDERED: IBUPROFEN 400 MG TABLET (FP) PO PRN (01:36)
[2023-12-09] MEDS ORDERED: NALOXONE HCL 0.4 MG/ML VIAL IM PRN (01:36)
[2023-12-09] MEDS ORDERED: BENZOCAINE/MENTHOL (CHLORASEPTIC ) LOZENGE MM PRN (01:36)
[2023-12-09] MEDS ORDERED: BISMUTH SUBSALICYLATE 524 MG/30 ML PO PRN (01:36)
[2023-12-09] MEDS ORDERED: NALOXONE HCL (KLOXXADO) 8 MG SPRAY NS PRN (01:36)
[2023-12-09] MEDS ORDERED: POLYETHYLENE GLYCOL (HEALTHYLAX) 3350 17 GM PACKET PO PRN (01:36)
[2023-12-09] MEDS ORDERED: LOPERAMIDE HCL 2 MG CAPSULE PO PRN (01:36)
[2023-12-09] MEDS ORDERED: ONDANSETRON *ODT* 4 MG TABLET SL PRN (01:36)
[2023-12-09] MEDS ORDERED: ACETAMINOPHEN 325 MG TABLET (FP) PO PRN (01:36)
[2023-12-09] MEDS ORDERED: guaiFENesin 600 MG TABLET.ER (FP) PO PRN (01:36)
[2023-12-09] MEDS ORDERED: MAG HYDROX/AL HYDROX/SIMETH 30 ML UNIT-DOSE CUP PO PRN (01:36)
[2023-12-09] MEDS: LOSARTAN POTASSIUM 25 MG TABLET PO SCH (10:09)
[2023-12-09] MEDS: ASPIRIN 81 MG CHEWABLE TABLETS PO SCH (10:09)
[2023-12-09] MEDS: PRENATAL VITAMINS W/ FOLIC ACID TABLET (FP) PO SCH (10:10)
[2023-12-09] MEDS: NICOTINE 14 MG/24 HOURS TOPICAL PATCH TD SCH (10:11)
[2023-12-09] MEDS: diazePAM 5 MG TABLET PO SCH (10:45)
[2023-12-09] MEDS: methaDONE HCL 10 MG TABLET (FOR DETOX USE ONLY) PO ONE (10:46)
[2023-12-09 14:29] LABS: HEMOGLOBIN 12.6 GM/dL (11.7-16.9); MCH 32.2 pg (25.7-33.7); MCHC 34.9 g/dl (32.0-35.9); MEAN CELL VOLUME 92.3 fl (80-96); MEAN PLT VOLUME 7.2 fl (7.5-11.1); PLATELET COUNT 295 10^3/uL (134-434); RDW 13.2 % (11.9-15.9); WHITE BLOOD COUNT 3.9 K/mm3 (4.0-10.0)
[2023-12-09 14:32] LABS: POTASSIUM 3.6 mmol/L (3.5-5.1)
[2023-12-09 14:34] LABS: CALCIUM 8.2 mg/dL (8.5-10.1)
[2023-12-09 14:35] LABS: ALBUMIN 3.3 g/dl (3.4-5.0); BLOOD UREA NITROGEN 12.9 mg/dL (7-18)
[2023-12-09 14:38] LABS: CREATININE 0.8 mg/dL (0.55-1.3)
[2023-12-09 14:40] LABS: BILIRUBIN,TOTAL 0.3 mg/dL (0.2-1); TOT PROT 6.4 g/dl (6.4-8.2)
[2023-12-09] MEDS: MELATONIN 5 MG TABLETS PO SCH (21:33)
[2023-12-09] MEDS: cloNIDine HCL 0.1 MG TABLET PO PRN (21:33)
[2023-12-09] MEDS: diazePAM 5 MG TABLET PO PRN (21:34)
[2023-12-09] MEDS: ATORVASTATIN CA 10 MG TABLET (FP) PO SCH (21:34)
[2023-12-09] MEDS: METHOCARBAMOL 500 MG TABLET PO PRN (21:34)
[2023-12-09] MEDS: THIAMINE 100 MG TABLET PO SCH (22:56)
[2023-12-11] MEDS: diazePAM 5 MG TABLET PO SCH (06:17)
[2023-12-11] MEDS: methaDONE HCL 10 MG TABLET (FOR DETOX USE ONLY) PO ONE (09:52)
[2023-12-11] MEDS: LOSARTAN POTASSIUM 25 MG TABLET PO ONE (16:01)
[2023-12-12] MEDS: diazePAM 5 MG TABLET PO SCH (06:31)
[2023-12-12 08:48] VITALS: BP 134/74; PULSE 74; RESP 18; TEMP 97.8
[2023-12-12] MEDS: LOSARTAN POTASSIUM 50 MG TABLET PO SCH (10:37)
[2023-12-13] MEDS ORDERED: diazePAM 5 MG TABLET PO ONE (06:00)
[2023-12-13] MEDS ORDERED: methaDONE HCL 10 MG TABLET (FOR DETOX USE ONLY) PO ONE (10:00)
== END 2023-12-12 12:20 | disposition home or self-care (01) | DRG 773 ==
LOC: YASAS 00:50 → UNDOADMIN 02:24 → Y3N 02:24 → UNDODISIN 12-12 12:20
PROVIDERS: ADMIT Allergy & Immunology; ATTEND Allergy & Immunology
PROC: HZ2ZZZZ Detoxification Services for Substance Abuse Treatment (ICD-10-PCS; principal; 2023-12-09)
DX: F11.23 Opioid dependence with withdrawal (principal); F10.230 Alcohol dependence with withdrawal, uncomplicated; F17.210 Nicotine dependence, cigarettes, uncomplicated; F19.24 Other psychoactive substance dependence with psychoactive substance-induced mood disorder; E78.5 Hyperlipidemia, unspecified; I10 Essential (primary) hypertension; Z28.310 Unvaccinated for COVID-19; Z28.21 Immunization not carried out because of patient refusal
CPT/HCPCS: 36415; 80053; 80305; 80307; 85027; 86780

== ENCOUNTER 2024-03-02 03:45 | Inpatient (IN) | payer OTHER ==
[2024-03-02 04:54] VITALS: BMI 26.6
[2024-03-02] MEDS ORDERED: BENZONATATE 200 MG CAPSULE PO PRN (06:07)
[2024-03-02] MEDS ORDERED: BENZOCAINE/MENTHOL (CHLORASEPTIC ) LOZENGE MM PRN (06:07)
[2024-03-02] MEDS ORDERED: NALOXONE (NARCAN) HCL 4 MG/0.1 ML SPRAY NS PRN ×2 (06:07→06:56)
[2024-03-02] MEDS ORDERED: NICOTINE POLACRILEX 2 MG GUM BUC PRN (06:07)
[2024-03-02] MEDS ORDERED: LOPERAMIDE HCL 2 MG CAPSULE PO PRN (06:07)
[2024-03-02] MEDS ORDERED: MAGNESIUM HYDROX 2400MG/30ML ORAL SUSPENSION 30 ML CUP PO PRN (06:07)
[2024-03-02] MEDS ORDERED: MAG HYDROX/AL HYDROX/SIMETH 30 ML UNIT-DOSE CUP PO PRN (06:07)
[2024-03-02] MEDS ORDERED: DICYCLOMINE HCL 10 MG CAPSULE PO PRN (06:07)
[2024-03-02] MEDS ORDERED: IBUPROFEN 400 MG TABLET (FP) PO PRN (06:07)
[2024-03-02] MEDS ORDERED: IBUPROFEN 600 MG TABLET (FP) PO PRN (06:07)
[2024-03-02] MEDS ORDERED: ACETAMINOPHEN 325 MG TABLET (FP) PO PRN (06:07)
[2024-03-02] MEDS ORDERED: BISMUTH SUBSALICYLATE 524 MG/30 ML PO PRN (06:07)
[2024-03-02] MEDS ORDERED: ONDANSETRON *ODT* 4 MG TABLET SL PRN (06:07)
[2024-03-02] MEDS ORDERED: hydrOXYzine PAMOATE 25 MG CAPSULE (FP) PO PRN (06:07)
[2024-03-02] MEDS ORDERED: guaiFENesin 600 MG TABLET.ER (FP) PO PRN (06:07)
[2024-03-02] MEDS ORDERED: NALOXONE HCL 0.4 MG/ML VIAL IM PRN (06:07)
[2024-03-02] MEDS ORDERED: POLYETHYLENE GLYCOL (HEALTHYLAX) 3350 17 GM PACKET PO PRN (06:07)
[2024-03-02] MEDS ORDERED: PRENATAL VITAMINS W/ FOLIC ACID TABLET (FP) PO ONE (09:55)
[2024-03-02] MEDS ORDERED: NICOTINE 14 MG/24 HOURS TOPICAL PATCH TD ONE (09:56)
[2024-03-02] MEDS ORDERED: ASPIRIN 81 MG CHEWABLE TABLETS ONE (09:56)
[2024-03-02] MEDS: PRENATAL VITAMINS W/ FOLIC ACID TABLET (FP) PO SCH (10:01)
[2024-03-02] MEDS: NICOTINE 14 MG/24 HOURS TOPICAL PATCH TD SCH (10:01)
[2024-03-02] MEDS: CHOLECALCIFEROL (VIT D3) 1,000 UNIT (25 MCG) TABLET PO SCH (10:01)
[2024-03-02] MEDS: ASPIRIN 81 MG CHEWABLE TABLETS PO SCH (10:01)
[2024-03-02] MEDS: LOSARTAN POTASSIUM 25 MG TABLET PO SCH (10:01)
[2024-03-02] MEDS: diazePAM 5 MG TABLET PO ONE (14:08)
[2024-03-02] MEDS: methaDONE HCL 10 MG TABLET (FOR DETOX USE ONLY) PO ONE (14:10)
[2024-03-02] MEDS: ACAMPROSATE CALCIUM 333 MG TABLET.DR PO SCH (14:11)
[2024-03-02] MEDS: diazePAM 5 MG TABLET PO SCH (17:54)
[2024-03-02] MEDS: MELATONIN 5 MG TABLETS PO SCH (22:31)
[2024-03-02] MEDS: METHOCARBAMOL 500 MG TABLET PO PRN (22:31)
[2024-03-02] MEDS: ATORVASTATIN CA 10 MG TABLET (FP) PO SCH (22:31)
[2024-03-02] MEDS: THIAMINE 100 MG TABLET PO SCH (22:32)
[2024-03-03] MEDS: cloNIDine HCL 0.1 MG TABLET PO PRN (09:07)
[2024-03-03 10:50] LABS: HEMATOCRIT 36.7 % (35.4-49); HEMOGLOBIN 12.8 GM/dL (11.7-16.9); MCH 32.6 pg (25.7-33.7); MCHC 34.8 g/dl (32.0-35.9); MEAN CELL VOLUME 93.5 fl (80-96); MEAN PLT VOLUME 7.6 fl (7.5-11.1); PLATELET COUNT 236 10^3/uL (134-434); RBC 3.92 M/mm3 (4.00-5.60); WHITE BLOOD COUNT 6.2 K/mm3 (4.0-10.0)
[2024-03-03 11:06] LABS: CALCIUM 8.3 mg/dL (8.5-10.1)
[2024-03-03 11:07] LABS: ALBUMIN 3.4 g/dl (3.4-5.0); BLOOD UREA NITROGEN 7.4 mg/dL (7-18)
[2024-03-03 11:10] LABS: BILIRUBIN,TOTAL 0.5 mg/dL (0.2-1); CREATININE 0.7 mg/dL (0.55-1.3)
[2024-03-03 11:12] LABS: TOT PROT 6.6 g/dl (6.4-8.2)
[2024-03-04] MEDS: diazePAM 5 MG TABLET PO SCH (06:50)
[2024-03-04] MEDS: methaDONE HCL 10 MG TABLET (FOR DETOX USE ONLY) PO ONE (09:50)
[2024-03-04] MEDS: LOSARTAN POTASSIUM 25 MG TABLET PO ONE (15:00)
[2024-03-05] MEDS: diazePAM 5 MG TABLET PO SCH (06:38)
[2024-03-05] MEDS: LOSARTAN POTASSIUM 25 MG TABLET PO SCH (10:06)
[2024-03-05] MEDS: diazePAM 5 MG TABLET PO PRN (10:07)
[2024-03-06] MEDS: diazePAM 5 MG TABLET PO ONE (06:10)
[2024-03-06 09:04] VITALS: BP 159/86; PULSE 55; RESP 18; TEMP 97.8
[2024-03-06] MEDS: methaDONE HCL 10 MG TABLET (FOR DETOX USE ONLY) PO ONE (10:40)
== END 2024-03-06 11:37 | disposition home or self-care (01) | DRG 773 ==
LOC: YASAS 03:45 → Y3N 12:06
PROVIDERS: ADMIT Allergy & Immunology; ATTEND Surgery
PROC: HZ2ZZZZ Detoxification Services for Substance Abuse Treatment (ICD-10-PCS; principal; 2024-03-02)
DX: F11.23 Opioid dependence with withdrawal (principal); F10.230 Alcohol dependence with withdrawal, uncomplicated; F17.210 Nicotine dependence, cigarettes, uncomplicated; E78.5 Hyperlipidemia, unspecified; E55.9 Vitamin D deficiency, unspecified; I10 Essential (primary) hypertension
CPT/HCPCS: 36415; 80053; 80305; 80307; 85027; 86780; 93005; 93010

== ENCOUNTER 2025-02-01 01:03 | Inpatient (IN) | payer OTHER ==
[2025-02-01 01:08] VITALS: BMI 26.6
[2025-02-01] MEDS ORDERED: BENZONATATE 200 MG CAPSULE PO PRN (01:37)
[2025-02-01] MEDS ORDERED: IBUPROFEN 600 MG TABLET (FP) PO PRN (01:37)
[2025-02-01] MEDS ORDERED: MAG HYDROX/AL HYDROX/SIMETH 30 ML UNIT-DOSE CUP PO PRN (01:37)
[2025-02-01] MEDS ORDERED: BENZOCAINE/MENTHOL (CHLORASEPTIC ) LOZENGE MM PRN (01:37)
[2025-02-01] MEDS ORDERED: MAGNESIUM HYDROX 2400MG/30ML ORAL SUSPENSION 30 ML CUP PO PRN (01:37)
[2025-02-01] MEDS ORDERED: DICYCLOMINE HCL 10 MG CAPSULE PO PRN (01:37)
[2025-02-01] MEDS ORDERED: BISMUTH SUBSALICYLATE 524 MG/30 ML PO PRN (01:37)
[2025-02-01] MEDS ORDERED: NALOXONE (NARCAN) HCL 4 MG/0.1 ML SPRAY NS PRN (01:37)
[2025-02-01] MEDS ORDERED: POLYETHYLENE GLYCOL (HEALTHYLAX) 3350 17 GM PACKET PO PRN (01:37)
[2025-02-01] MEDS ORDERED: guaiFENesin 600 MG TABLET.ER (FP) PO PRN (01:37)
[2025-02-01] MEDS ORDERED: ACETAMINOPHEN 325 MG TABLET (FP) PO PRN (01:37)
[2025-02-01] MEDS ORDERED: LOPERAMIDE HCL 2 MG CAPSULE PO PRN (01:37)
[2025-02-01] MEDS ORDERED: ONDANSETRON *ODT* 4 MG TABLET SL PRN (01:37)
[2025-02-01] MEDS ORDERED: IBUPROFEN 400 MG TABLET (FP) PO PRN (01:37)
[2025-02-01] MEDS: NICOTINE 14 MG/24 HOURS TOPICAL PATCH TD SCH (10:21)
[2025-02-01] MEDS: PRENATAL VITAMINS W/ FOLIC ACID TABLET (FP) PO SCH (10:22)
[2025-02-01 11:31] LABS: MCHC 33.3 g/dl (32.3-36.5); MEAN CELL VOLUME 93.8 fl (79.0-92.2); MEAN PLT VOLUME 9.2 fl (9.4-12.4); RDW 12.6 % (12.2-16.1)
[2025-02-01 11:36] LABS: CO2 25 mmol/L (21-32); GLUCOSE,RANDOM 100 mg/dL (74-106)
[2025-02-01 11:39] LABS: CREATININE 0.9 mg/dL (0.55-1.3); SGOT/AST 26 U/L (15-37); SGPT/ALT 29 U/L (13-61)
[2025-02-01 11:40] LABS: TOT PROT 6.2 g/dl (6.4-8.2)
[2025-02-01 11:41] LABS: ALK PHOS 87 U/L (45-117)
[2025-02-01] MEDS ORDERED: MELATONIN 5 MG TABLETS PO SCH (22:00)
[2025-02-01] MEDS: THIAMINE 100 MG TABLET PO SCH (22:36)
[2025-02-01] MEDS: MELATONIN 5 MG TABLETS PO PRN (23:17)
[2025-02-02] MEDS: LOSARTAN POTASSIUM 50 MG TABLET PO SCH (16:07)
[2025-02-02] MEDS: ATORVASTATIN CA 10 MG TABLET (FP) PO SCH (22:50)
[2025-02-03] MEDS: ASPIRIN 81 MG CHEWABLE TABLETS PO SCH (10:10)
[2025-02-03] MEDS: amLODIPine BESYLATE 10 MG TABLET (FP) PO SCH (13:08)
[2025-02-04] MEDS: NICOTINE POLACRILEX 2 MG GUM BUC PRN (22:13)
[2025-02-05 05:58] VITALS: RESP 16
[2025-02-05 08:48] VITALS: BP 142/90; PULSE 71; TEMP 97.5
== END 2025-02-05 10:54 | disposition home or self-care (01) | DRG 773 ==
LOC: YASAS 01:03 → Y3N 02:16
PROVIDERS: ADMIT Allergy & Immunology; ATTEND Allergy & Immunology
PROC: HZ2ZZZZ Detoxification Services for Substance Abuse Treatment (ICD-10-PCS; principal; 2025-02-01)
DX: F11.23 Opioid dependence with withdrawal (principal); F10.230 Alcohol dependence with withdrawal, uncomplicated; F14.20 Cocaine dependence, uncomplicated; F17.210 Nicotine dependence, cigarettes, uncomplicated; F19.282 Other psychoactive substance dependence with psychoactive substance-induced sleep disorder; E55.9 Vitamin D deficiency, unspecified; E78.2 Mixed hyperlipidemia; I10 Essential (primary) hypertension
CPT/HCPCS: 36415; 80053; 80305; 80307; 85027; 93005; 93010